=== PATIENT | female | born 1945 | race Caucasian/White ===

== ENCOUNTER 2022-09-26 15:55 | Inpatient (IN) | payer MEDICARE, OTHER, SELFPAY ==
[2022-09-26] VITALS (28 sets, daily range): BP systolic 151–218; BP diastolic 89–150; PULSE 73–116; RESP 15–28; TEMP 35.8–38.3; O2SAT 93–100; BMI 14.2
--- NOTE | ~2022-09-26 | MR_ITS ---
EXAMINATION: MR brain/brain stem wo con DATE: 09/28/2022 09:22 INDICATION: Altered mental status. TECHNIQUE: Magnetic resonance imaging (MRI) of the brain and brainstem was performed without intraven ous contrast. COMPARISON: Head CT 09/26/2022 FINDINGS: There are scattered areas of nonspecific increased T2-weighted signal intensity in the cere bral white matter. There is no intracranial hemorrhage, acute infarction, or abnormal intracranial ma ss lesion. The ventricles are normal in size. The orbits are normal. The paranasal sinuses are clear. The mastoid air cells are normal. IMPRESSION: 1. Moderate nonspecific cerebral white matter disease, which likely represents chronic small vessel i schemic disease. Reviewed, dictated and finalized at location A. IMPRESSION: 1. Moderate nonspecific cerebral white matter disease, which likely represents chronic small vessel ischemic disease.
--- NOTE | ~2022-09-26 | XR_ITS ---
AP view of the pelvis and AP and lateral views of the left hip Clinical history: Pain Findings: Subcapital fracture of the proximal left femoral neck is present, with displacement increas ed varus angulation. Bilateral hip and SI joint spaces are preserved. Soft tissues are unremarkable. Impression: Subcapital fracture of the proximal left femoral neck, as detailed above. Reviewed, dictated and finalized at location . Impression: Subcapital fracture of the proximal left femoral neck, as detailed above.
--- NOTE | ~2022-09-26 | XR_ITS ---
EXAMINATION: XR chest 1V portable Exam Date/Time: 09/30/2022 18:35 CDT HISTORY: pulmonary edema, cough Comparison: . RESULT: Lines, tubes, and devices: Right upper extremity PICC remains in good position. Lungs and pleura: Worsening diffuse reticular opacities and reticulonodular opacities in the left lo wer lung. Severe emphysematous and senescent change. Chronic right lateral pleural blunting. Cardiomediastinal silhouette: Stable. Other: No acute osseous or upper abdominal finding. IMPRESSION: Worsening changes of edema/bronchiolitis in the left lower lung, over a background of more diffuse wo rsening mild interstitial edema. Reviewed, dictated and finalized at location K. IMPRESSION: Worsening changes of edema/bronchiolitis in the left lower lung, over a backgro und of more diffuse worsening mild interstitial edema.
--- NOTE | ~2022-09-26 | XR_ITS ---
EXAMINATION: XR chest 1V portable DATE: 09/29/2022 12:56 INDICATION: Shortness of breath. TECHNIQUE: A single frontal view of the chest was obtained. COMPARISON: Chest single view 09/27/22, CT abdomen and pelvis 09/26/2022 FINDINGS: There are lucencies in the lungs, consistent with emphysema. There is an interstitial patte rn in the lungs, consistent with mild pulmonary edema. There is chronic blunting of right lateral cos tophrenic angle. No pleural effusion or pneumothorax. The heart size is normal. A right upper extremi ty peripherally inserted central venous catheter (PICC) is seen with tip at the superior cavoatrial j unction. IMPRESSION: 1. Mild pulmonary edema. 2. Emphysema. Reviewed, dictated and finalized at location A.
--- NOTE | ~2022-09-26 | XR_ITS ---
EXAMINATION: XR barium swallow modified DATE: 09/29/2022 10:44 INDICATION: Dysphagia TECHNIQUE: Modified barium esophagram was performed by myself who administered fluoroscopy, in conju nction with speech pathologist who administered barium in varying consistencies as per speech patholo gist documentation. This was recorded on tape. A single fluoroscopic spot image was recorded. Fluoros copy exposure time was 1.9 minutes. The DAP for this procedure was 1.157 Gycm2. FINDINGS: Oral stage: Adequate function. Pharyngeal phase: Adequate function. Laryngeal penetration: None. Aspiration: None. Laryngeal sensitivity: Not applicable. IMPRESSION: Normal modified barium swallow. Please refer to speech pathologist findings and specific feeding recommendations. Reviewed, dictated and finalized at location A.
--- NOTE | ~2022-09-26 | XR_ITS ---
EXAMINATION: XR lumbar puncture diagnostic DATE: 09/27/2022 12:42 INDICATION: Altered mental status and fever TECHNIQUE: The procedure including the risks and benefits was discussed with the patient's daughter. Risks discussed included spinal headache, cerebrospinal fluid leak, bleeding, and infection. The blanca ent's daughter understood the risks and agreed to proceed. A timeout was performed to verify the p atient's name, date of , and procedure to be performed. The skin overlying the L4-L5 level was prepped and draped in usual sterile fashion. Subcutaneous 1% lidocaine was used for local anesthesia . A 20 gauge spinal needle was advanced under fluoroscopic guidance. The needle was removed and the entry site was cleaned and dressed. There were no immediate complications. A total of 3 fluoroscopic image(s) were obtained. The amount of fluoroscopy time used during this procedure was 0.2 minutes. T here were no immediate competitions. FINDINGS: Real-time fluoroscopy demonstrates the needle at the L4-L5 level. Opening pressure was 16 c m water. (Normal range is variably defined as 6-20 cm water and up to 25 cm water in obese patients. Pressure >25 cm water is one of the modified Dandy criteria for idiopathic intracranial hypertension) . 13 mL of clear, colorless fluid was collected in 4 tubes. IMPRESSION: 1. Successful fluoro-guided lumbar puncture. Reviewed, dictated and finalized at location A.
--- NOTE | ~2022-09-26 | XR_ITS ---
AP view of the pelvis and AP and lateral views of the bilateral hips Clinical history: Pain Findings: There is a significantly displaced, subcapital fracture of the proximal left femoral neck. No right proximal femoral fracture seen. Remaining visualized pelvic bones appear intact. Soft tissue s are unremarkable. Impression: Displaced subcapital fracture of the proximal left femoral neck. Reviewed, dictated and finalized at location . Impression: Displaced subcapital fracture of the proximal left femoral neck.
--- NOTE | ~2022-09-26 | CT_ITS ---
Noncontrast CT scan of the cervical spine Technique: Multiple contiguous axial [address] images of the cervical spine were obtained and rec onstructed in 2D sagittal and coronal planes on the acquisition scanner. Dose reduction technique was used on this scan by utilizing automated exposure control, adjustment of the mA and/or kV according to patient size. The dose-length product (DLP) was 92.05 mGy-cm. Clinical History: Unresponsive Findings: No fractures or dislocations. There is partial fusion across the C6-C7 disc space. There i s severe degenerative disc narrowing at C4-C5 and C5-C6. There is degenerative change at the articula tion of the odontoid process with the anterior arch of C1. There is bilateral neural foraminal narrow ing at C3-C4, with prominent bilateral facet arthropathy. There is left neural foraminal narrowing at C4-C5, with mild bilateral facet arthropathy. There is left neural foraminal narrowing at C5-C6, wit h facet arthropathy and disc osteophyte complex. No prevertebral soft tissue swelling. Severe emphysema noted at the lung apices. Impression: No fracture or subluxation of the cervical spine. Moderate degenerative spondylosis, as above. Severe emphysema at the lung apices. Reviewed, dictated and finalized at location . Impression: No fracture or subluxation of the cervical spine. Moderate degenerative spondylosis, as above. Severe emphysema at the lung apices.
--- NOTE | ~2022-09-26 | XR_ITS ---
Portable chest x-ray Comparison: 01/20/2007 Clinical History: Unresponsive Findings: Probable COPD pattern of the lungs. Probable mild interstitial pulmonary edema pattern. Pr obable bibasilar nipple shadows. Cardiomediastinal silhouette is stable. Bones and soft tissues are unremarkable. Impression: Mild interstitial pulmonary edema pattern, versus possibly chronic interstitial disease. Suspected underlying COPD. Bibasilar nipple shadows. Reviewed, dictated and finalized at location . Impression: Mild interstitial pulmonary edema pattern, versus possibly chronic interstitial disease. Suspected underlying COPD. Bibasilar nipple shadows.
--- NOTE | ~2022-09-26 | CT_ITS ---
EXAMINATION: CT hip LT wo con DATE: 09/29/2022 12:36 INDICATION: Left hip pain. TECHNIQUE: Computed tomography (CT) of the left hip was performed without intravenous contrast. Autom ated exposure control and iterative reconstruction technique were employed. The dose-length product w as 113.40 mGy-cm. COMPARISON: CT abdomen and pelvis 09/26/2022 FINDINGS: There is a subcapital fracture of left femoral neck. The distal fracture fragment demonstra radha external rotation, 20 degrees varus angulation, and 1.4 cm shortening. There is mild left hip ost eoarthritis. IMPRESSION: 1. Subcapital fracture of left femoral neck. 2. Mild left hip osteoarthritis. Reviewed, dictated and finalized at location A.
--- NOTE | ~2022-09-26 | XR_ITS ---
EXAMINATION: XR hip LT min 2V DATE: 10/02/2022 11:23 INDICATION: Left hip arthroplasty. Postop. TECHNIQUE: 2 views of left hip were obtained. COMPARISON: Left hip radiograph 09/30/2022 FINDINGS: There is a bipolar left hip hemiarthroplasty in near-anatomic alignment. No fracture. There is gas in the soft tissues, consistent with recent surgery. Lateral skin dean are noted. There is a catheter in the bladder. IMPRESSION: 1. Bipolar left hip hemiarthroplasty in near-anatomic alignment. Reviewed, dictated and finalized at location A.
--- NOTE | ~2022-09-26 | CT_ITS ---
EXAMINATION: CT knee LT wo con DATE: 09/29/2022 12:48 INDICATION: Left knee pain post fall TECHNIQUE: Computed tomography (CT) of the left knee was performed without intravenous contrast. Sagi ttal and coronal reconstructions were performed. Automated exposure control and iterative reconstruct ion technique were employed. The dose-length product was 816.14 mGy-cm. COMPARISON: None FINDINGS: Diffuse osteopenia. Alignment is normal. No fracture. Mild joint space narrowing the medial compartme nt which could be underestimated on nonweightbearing imaging. Tiny marginal ossified to the patella c onsistent with at least minimal osteoarthritis. Small simple fluid attenuation left knee joint effusi on. No lipohemarthrosis. Small osteophytes at the insertion of the distal quadriceps tendon which is mildly thickened distally consistent with likely chronic enthesopathy. No evident soft tissue swellin g. IMPRESSION: 1. Small left knee joint effusion and at least mild medial and patellofemoral osteoarthritis. No acut e osseous abnormality. 2. Prominent diffuse osteopenia. Reviewed, dictated and finalized at location L. IMPRESSION: 1. Small left knee joint effusion and at least mild medial and patellofemoral o steoarthritis. No acute osseous abnormality. 2. Prominent diffuse osteopenia.
--- NOTE | ~2022-09-26 | CT_ITS ---
CT head without contrast Indication: Unresponsive Technique: Serial scans were obtained through the brain without the administration of contrast. Dose reduction technique was used on this scan by utilizing automated exposure control and iterative recon struction technique. The dose-length product (DLP) was 605.33 mGy-cm. Findings: There is no evidence of intracranial hemorrhage, mass lesion, or acute infarct. The ventri cles and subarachnoid spaces are unremarkable. Low attenuation regions are seen within the periventr icular white matter bilaterally, likely representing changes from chronic microvascular ischemic dise ase. There is no evidence of edema, mass effect or midline shift. The visualized paranasal sinuses and mastoid air cells are clear. Impression: No intracranial hemorrhage, mass, or acute infarct. Atrophy and mild chronic white matter changes, as above. Reviewed, dictated and finalized at location . Impression: No intracranial hemorrhage, mass, or acute infarct. Atrophy and mild chronic white matter changes, as above.
--- NOTE | ~2022-09-26 | CT_ITS ---
CT of the Abdomen and Pelvis: Indication: Sepsis Technique: 2.5 mm axial scans were obtained through the abdomen and pelvis following intravenous adm inistration of 100 cc of Omnipaque 350. Dose reduction technique was used on this scan by utilizing a utomated exposure control and iterative reconstruction technique. The dose-length product (DLP) was 1 65.99 mGy-cm. Findings: Scans through the lung bases probable moderate emphysema. 8.6 cm left hepatic lobe cyst versus biliary cystadenoma present. The spleen, pancreas, gallbladder, adrenals and kidneys are within normal limits. There are atherosclerotic calcifications of the aorta. No lymphadenopathy. No bowel obstruction or bowel wall thickening. Large amount of stool present at the rectum, with mode rate stool in the remainder of the colon. There is no evidence to suggest acute appendicitis. Images through the pelvis were performed. Ugalde catheter present in the urinary bladder, along with t he urinary bladder air. No distinct adnexal mass identified. No ascites. There are mild compression d eformities of L1 and L2. There is a displaced, subcapital fracture of the proximal left femoral neck. Impression: Subcapital fracture of the proximal left femoral neck with displacement and increased varus angulatio n. Possible fecal impaction/constipation. Moderate probable emphysema. Mild compression deformity of L1 and L2, age indeterminate. Findings reported to Dr. Loera at the time of this reading. Reviewed, dictated and finalized at [facility]. Impression: Subcapital fracture of the proximal left femoral neck with displacement and inc reased varus angulation. Possible fecal impaction/constipation. Moderate probable emphysema. Mild compression deformity of L1 and L2, age indeterminate. Findings reported to Dr. Loera at the time of this reading.
--- NOTE | ~2022-09-26 | XR_ITS ---
EXAMINATION: XR chest 1V portable DATE: 10/06/2022 13:04 INDICATION: Congestive heart failure. TECHNIQUE: A single frontal view of the chest was obtained. COMPARISON: Chest single view 09/30/2022, CT abdomen and pelvis 09/26/2022 FINDINGS: There are lucencies in the lungs, consistent with emphysema. There are reticular opacities in the mid and lower lung zones. There are airspace opacities at the lung bases. There is a small rig ht pleural effusion. No pneumothorax. The heart size is normal. A right upper extremity peripherally inserted central venous catheter (PICC) is seen with tip in the superior vena cava. IMPRESSION: 1. Basilar predominant lung disease with worsening on the left, consistent with atelectasis/scarring versus pneumonia. 2. Small right pleural effusion. 3. Emphysema. Reviewed, dictated and finalized at location A.
--- NOTE | ~2022-09-26 | XR_ITS ---
EXAMINATION: XR chest PICC line DATE: 09/27/2022 13:15 INDICATION: PICC line placement TECHNIQUE: frontal view of the chest was obtained. COMPARISON: Chest radiograph dated 09/26/2022 FINDINGS: Right upper extremity peripherally inserted central venous catheter (PICC) tip at the superior cavoa trial junction. Hyperexpansion of lungs with increased lucency and architectural distortion in the up per lung zones consistent with emphysema. Mild increased interstitial pattern in the lower lung zones which could represent mild pulmonary edema or pneumonia. Nipple shadow projects of the lateral right lung base. No pleural effusion or pneumothorax. Heart size is normal. IMPRESSION: 1. Right PICC line tip at the superior cavoatrial junction. 2. Emphysema with mild increased interstitial pattern in the bilateral lower lung zones which could r epresent pulmonary edema or pneumonia. Reviewed, dictated and finalized at location A. IMPRESSION: 1. Right PICC line tip at the superior cavoatrial junction. 2. Emphysema with mild increased interstitial pattern in the bilateral lower audelia ng zones which could represent pulmonary edema or pneumonia.
--- NOTE | 2022-09-26 16:00 | ED.AMS ---
HPI - Altered Mental Status General Chief Complaint: Altered Mental Status Stated Complaint: AMS Time Seen by Provider: 09/26/22 16:00 Source: family and EMS Mode of arrival: EMS History of Present Illness HPI narrative: 76 years old white female who lives alone, last time was seen by her daughter 6 days ago. Today did not answer text message, daughter went to her house and found her laying down on the floor unresponsive, called 911 then started CPR. Patient had history of COPD and normally on oxygen by nasal cannula. Patient was not on oxygen when she was found on the floor. The daughter is telling me that she found TODAY [employer] next to the patient at home Related Data Allergies Allergy/AdvReac Type Severity Reaction Status Date / Time No Known Allergies Allergy Unknown Verified 01/17/07 16:38 Review of Systems Review of Systems: ROS unobtainable: Yes unobtainable due to medical condition PMFSH Past Medical History Medical History (Updated 09/26/22 @ 19:26 by Wendi Adhikari NP) CHF (congestive heart failure), NYHA class I Chronic respiratory failure with hypoxia and hypercapnia COPD (chronic obstructive pulmonary disease) Hypertension Surgical History Surgical History (Updated 09/26/22 @ 19:26 by Wendi Adhikari NP) H/O hernia repair Family History Family History (Updated 09/26/22 @ 19:28 by Wendi Adhikari NP) Father Cancer Mother Acute myocardial infarction Hypertension Social History Social History (Updated 09/26/22 @ 19:29 by Wendi Adhikari NP) Social History: 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 Musculoskeletal: Unresponsive, does not follow verbal commands Neurologic: Unresponsive Course Vital Signs Vital signs: Vital Signs Temperature 35.8 C L 09/26/22 15:55 Pulse Rate 112 H 09/26/22 15:55 Respiratory Rate 19 09/26/22 15:55 Blood Pressure 191/131 H 09/26/22 15:55 Pulse Oximetry 97 09/26/22 15:55 Oxygen Delivery Nasal Cannula 09/26/22 15:55 Oxygen Flow Rate 2 09/26/22 15:55 Temperature 38.2 C H 09/26/22 20:01 Pulse Rate 74 09/26/22 20:01 Respiratory Rate 26 H 09/26/22 20:01 Blood Pressure 182/93 H 09/26/22 19:47 Pulse Oximetry 97 09/26/22 20:01 Oxygen Delivery Nasal Cannula 09/26/22 15:55 Oxygen Flow Rate 2 09/26/22 15:55 MDM - Altered Mental Status MDM Narrative Medical decision making narrative: Patient found unresponsive at her home today. Last time was seen by her daughter 6 days ago. Patient had today's newspaper. Patient normally on oxygen by nasal cannula, she was not on it when she found unresponsive. Physical examination showed 47.7 kg gram patient, responsive to painful stimulation by moving extremities, unable to flex left knee, differential diagnosis include CVA, cervical neck fracture, sepsis, electrolyte imbalance, dehydration, pneumonia, urinary tract infection, hypoxic encephalopathy Work-up today include CBC, CMP, blood culture, CRP, PT PTT, chest x-ray, EKG, CT scan of the head and cervical spine, CT abdomen and pelvis with IV contrast, ABG, COVID and flu test, rapid strep. Work-up today s
--- NOTE | 2022-09-26 16:02 | ECG_ITS ---
Measurements Intervals [place] Rate: 78 P: 85 NM: 141 QRS: 71 QRSD: 98 T: 113 QT: 412 QTc: 470 Interpretive Statements SINUS RHYTHM POSSIBLE LEFT ATRIAL ENLARGEMENT [-0.1mV P WAVE IN V1/V2] LATERAL T-WAVE CHANGES, cONSIDER LATERAL ISCHEMIA [-0.1+ mV T WAVE IN I/aVL/V5/V6] NONSPECIFIC ST CHANGES. COMPARED TO ECG 09/26/2022 16:11:00 NO SIGNIFICANT CHANGES Electronically Signed On 09-27-2022 8:31:47 CDT by Elizabeth Cheng M.D.
[2022-09-26] MEDS: SODIUM CHLORIDE 0.9% IV 1,000 ML 999 ML IV CONT (16:15)
[2022-09-26 16:24] LABS: Glucose Point of Care 180 mg/dl (65-105)
[2022-09-26 16:26] LABS: Alveolar/Arterial O2 Gradient 42.8 mmHg; Base Excess ABG -1.9 mEq/l (+/-2.0); Fractional Inspired Oxygen 25 %; HCO3 ABG 24.2 mEq/l (22.0-26.0); Oxygen Content ABG 19.1 %vol (16.0-22.0); Oxygen Saturation ABG 95.2 % (95.0-100.0); Oxyhemoglobin 93.4 % THb (90.0-100.0); PCO2 ABG 46.2 mmHg (35.0-45.0); PO2 ABG 80.6 mmHg (80.0-100.0); PO2 FiO2 Ratio Arterial Blood 3.22 %; Total Hemoglobin 14.5 g/dL (12.0-18.0); pH ABG 7.337 (7.350-7.450)
[2022-09-26 16:28] LABS: Device NASAL CANNULA; Modified Allen's Test Pass; Site Drawn RIGHT BRACHIAL
[2022-09-26 16:53] LABS: Hematocrit 41.3 % (37.0-47.0); Hemoglobin 13.5 g/dL (12.0-15.0); Mean Corpuscular HGB Conc 32.7 g/dl (32-36); Mean Corpuscular Hemoglobin 32.5 pg (26-34); Mean Corpuscular Volume 99.5 fl (80-100); Mean Platelet Volume 10.3 fl (7.4-10.4); Platelet Count Result 183 k/mm3 (150-375); Red Blood Count 4.15 M/mm3 (4.2-5.4); Red Cell Distribution Width 13.1 % (11.5-14.5); White Blood Count 20.2 K/mm3 (4.5-10.0)
[2022-09-26 17:06] LABS: Partial Thromboplastin Time 33.3 SECONDS (22.3-36.8)
[2022-09-26 17:15] LABS: Troponin I < 0.012 ng/mL (0.000-0.034)
[2022-09-26 17:21] LABS: Lactic Acid Reflex 6.6 mmol/L (0.7-2.0)
[2022-09-26 17:22] LABS: Band Neutrophils Percent 2 % (0-6); Monocytes Percent Manual 2 % (3-9); Neutrophils Absolute Manual 19.59 K/mm3 (1.7-7.2); Neutrophils Percent Manual 95 % (46-73); Platelet Estimate Adequate (Adequate); Total Cells Counted 100
[2022-09-26 17:23] LABS: Schistocytes None Seen (NORMAL)
[2022-09-26 17:26] LABS: Appearance Urine Clear (Clear); Bacteria Urine None Seen /hpf; Bilirubin Urine Negative (Negative); Blood Urine 2+ (Negative); Color Urine Yellow (Yellow); Glucose Urine UA Trace mg/dL (Negative); Hyaline Casts Urine Present /lpf; Ketones Urine 2+ mg/dL (Negative); Leukocyte Esterase Ur Negative LEU/UL (Negative); Nitrate Urine Negative (Negative); Non Pathogenic Casts >20; Protein Urine 1+ mg/dL (Negative); RBC Urine 0-2 /hpf (0-2); Specific Grav Ur 1.015 (1.001-1.035); Squamous Epithelial Cell Urine None seen /hpf (Few); WBC Urine 0-5 /hpf; pH Urine 5.5 (5.0-9.0)
[2022-09-26 17:27] LABS: Add Urine Microscopic? YES
[2022-09-26 17:28] LABS: Alanine Aminotransferase 49 U/L (6-35); Alkaline Phosphatase 54 U/L (38-126); Anion Gap 12 mmol/L (8-16); Aspartate Amino Transferase 57 U/L (14-36); Bilirubin,Total 1.4 mg/dL (0.2-1.3); Blood Urea Nitrogen 22 mg/dL (7-17); CRP < 0.5 mg/dL (<1.0); Calcium 8.1 mg/dL (8.4-10.2); Carbon Dioxide 22 mmol/L (22-30); Chloride 89 mmol/L (98-107); Estimated CRCL calculation 42 ml/min; Estimated Glomerular Filt Rate > 60; Glucose 149 mg/dL (65-110); Potassium 4.1 mmol/L (3.4-5.0); Sodium 123 mmol/L (137-145)
[2022-09-26 17:28] LABS: Creatine Kinase 371 U/L (30-135)
[2022-09-26] MEDS: levoFLOXacin 750 MG/D5W 150 ML 750 MG/150 ML BAG 100 MG IVPB (17:59)
[2022-09-26] MEDS: LABETALOL HCL INJ 100 MG/20 ML VIAL 10 MG IV PUSH (18:01)
[2022-09-26] MEDS: SODIUM CHLORIDE 3% 500 ML 30 ML IV CONT (18:28)
[2022-09-26] MEDS: LABETALOL HCL INJ 100 MG/20 ML VIAL 20 MG IV PUSH (18:37)
--- NOTE | 2022-09-26 19:13 | PC.NURSE ---
Bedside report given to Delicia DIEZ
--- NOTE | 2022-09-26 19:21 | PM.IMHP ---
H&P: HPI History of Present Illness Date/Time: 09/26/22 19:21 Chief Complaint: Altered mental status Narrative: This is a 76-year-old female patient who lives home alone. The patient only has 1 daughter who checks up on her occasionally. The patient started has not seen her for 6 days. Today the patient did not answer text messages to her daughter went to her house. The patient was found lying down on the floor unresponsive. The patient typically wears oxygen at 2 L per nasal cannula and the daughter stated that the oxygen was at 1 into the house and the patient was at the other and her house. It was felt that the patient fell today and had only been on the floor today because there was a newspaper that was today's newspaper next to the patient. Her white counts 20.2. PH was 7.431, pCO2 was 40.1. PO2 was 76.3. The patient does have a history of COPD and is on oxygen at 2 L typically. It was unclear what medications the patient was on. The daughter collected many different bottles that were scattered throughout the house. I reviewed these medications and some of these medications had not been filled since last year. The patient does go to [facility] pharmacy. Her sodium levels 123 now 122. Her glucose is 149 and now 144. Her lactic was 6.6 now 1.8. Calcium 8.1 now 7.8. Total bilirubin 1.4, AST 57, ALT 49. Total creatinine kinase 371. She had 1+ protein, trace glucose in her urine 2+ ketones and 2+ blood. Influenza a B RSV COVID and group a not detected. Chest x-rayMild interstitial pulmonary edema pattern, versus possibly chronic interstitial disease. Suspected underlying COPD. Bibasilar nipple shadows. Cervical spine CTNo fracture or subluxation of the cervical spine. Moderate degenerative spondylosis, as above. Severe emphysema at the lung apices. Head CT read asNo intracranial hemorrhage, mass, or acute infarct. Atrophy and mild chronic white matter changes, as above. Abdominal pelvis CT was read asSubcapital fracture of the proximal left femoral neck with displacement and increased varus angulation. Possible fecal impaction/constipation. Moderate probable emphysema. Mild compression deformity of L1 and L2, age indeterminate. Findings reported to Dr. Loera at the time of this reading. Hip and pelvis x-ray read as subcapital fracture of the proximal left femoral neck. The patient was given IV fluids, labetalol, vancomycin, Levaquin, Zosyn, labetalol, and Toradol. The patient is being admitted to ICU as inpatient on the date of service of 09/26/2022. Review of Systems Review of Systems: All systems reviewed & are unremarkable except as noted in HPI and below Constitutional: Constitutional: Reports as per HPI and Reports no additional constitutional complaints Eyes: Eyes: Reports as per HPI and Reports no additional eye complaints ENT: Reports system reviewed and no additional complaints, except as documented and Reports Normal hearing present Cardiovascular: Cardiovascular: Reports no additional cardiovascular complaints Respiratory: Respiratory: Reports no additional respiratory complaints and Reports no additional respiratory complaints Gastrointestinal: Gastrointestinal: Reports as per HPI and Reports no additional gastrointestinal complaints Musculoskeletal: Musculoskeletal: Reports no additional musculoskeletal complaints Integumentary/Breasts: Skin/Breast: Reports system reviewed and no additional complaints, except as docu and Reports as per HPI Neurologic: Reports system reviewed and no additional complaints, except as documented, Reports as per HPI and Reports Normal hearing present Psychiatric: Psychiatric: Reports no additional psychiatric complaints and Reports as per HPI Endocrine: Endocrine: Reports no additional endocrine complaints Hematologic/Lymphatic: Hematologic/Lymphatic: Reports no additional hematologic/lymphatic complaints Allergic/Immunologic: Allergic/Immunologic: Reports no additional allergic/immu
[2022-09-26 19:43] LABS: Alveolar/Arterial O2 Gradient 37.6 mmHg; Base Excess ABG 5.9 mEq/l (+/-2.0); Fractional Inspired Oxygen 24 %; HCO3 ABG 31.3 mEq/l (22.0-26.0); Oxygen Content ABG 18.1 %vol (16.0-22.0); Oxygen Saturation ABG 95.5 % (95.0-100.0); Oxyhemoglobin 93.6 % THb (90.0-100.0); PCO2 ABG 48.1 mmHg (35.0-45.0); PO2 ABG 76.3 mmHg (80.0-100.0); PO2 FiO2 Ratio Arterial Blood 3.18 %; Total Hemoglobin 13.7 g/dL (12.0-18.0); pH ABG 7.431 (7.350-7.450)
--- NOTE | 2022-09-26 19:43 | ECG_ITS ---
Measurements Intervals [place] Rate: 98 P: IA: 0 QRS: 89 QRSD: 114 T: -23 QT: 440 QTc: 564 Interpretive Statements SUPRAVENTRICULAR RHYTHM, PROBABLY NORMAL SINUS RHYTHM TOO MUCH ARTIFACT FOR FURTHER EVALUATION. NO PREVIOUS ECG AVAILABLE FOR COMPARISON Electronically Signed On 09-27-2022 8:29:48 CDT by Elizabeth Cheng M.D.
[2022-09-26 19:46] LABS: Device NASAL CANNULA; Modified Allen's Test Pass; Site Drawn LEFT RADIAL
[2022-09-26] MEDS: KETOROLAC 15 MG/ML VIAL (*BKC) IV PUSH (19:52)
[2022-09-26] MEDS: PIPERACILLIN/TAZ 4.5G/NS 100ML 4.5 GM/100 ML BAG IVPB (19:52)
[2022-09-26 20:03] LABS: Reflex Lactic Acid Yes or No Add Lactic
[2022-09-26] MEDS: VANCOMYCIN 1,250 MG/NS 250 ML 1,250 MG/250 ML BAG 166.67 MG IVPB (20:15)
[2022-09-26 20:33] LABS: Strep Group A RT-PCR NOT DETECTED (Negative)
[2022-09-26 20:41] LABS: Influenza A QL RT-PCR Negative (Negative); Influenza B QL RT-PCR Negative (Negative); RSV RNA, RT-PCR Negative (Negative); SARS-CoV-2 RNA PCR Negative (Negative)
[2022-09-26 20:48] LABS: Lactic Acid 1.8 mmol/L (0.7-2.0)
--- NOTE | 2022-09-26 21:16 | PC.NURSE ---
pt. daughter [phone] can call at anytime.
[2022-09-26 21:24] LABS: Anion Gap 3 mmol/L (8-16); Blood Urea Nitrogen 19 mg/dL (7-17); Calcium 7.8 mg/dL (8.4-10.2); Carbon Dioxide 33 mmol/L (22-30); Chloride 86 mmol/L (98-107); Estimated CRCL calculation 49 ml/min; Estimated Glomerular Filt Rate > 60; Glucose 144 mg/dL (65-110); Potassium 3.5 mmol/L (3.4-5.0); Sodium 122 mmol/L (137-145)
--- NOTE | 2022-09-26 21:35 | ADMGEN ---
This patient, Rosalba oMntano, was admitted to Intensive Care Unit-6. Patient/family oriented to hospital policies and general routines including ID bracelet, bed and alarms, visiting hours, pain management, procedures, bathroom and other care routines, personal items, smoking policy, room service/diet, and visiting hours. Information on how to activate the Rapid Response Team has been discussed. Patient/Family are encouraged to report perceived risks to care and to ask questions if they do not understand what they are told or what they should do.
[2022-09-26] MEDS: MORPHINE SULFATE (*CRX) 2 MG/ML INJ IV PUSH (22:07)
[2022-09-26] MEDS: hydrALAZINE HCL 20 MG/ML VIAL 10 MG IV PUSH (22:14)
[2022-09-26] MEDS: SODIUM CHLORIDE 0.9% IV 1,000 ML 125 ML IV CONT (22:18)
[2022-09-26 23:19] LABS: Anion Gap 4 mmol/L (8-16); Blood Urea Nitrogen 18 mg/dL (7-17); Calcium 7.7 mg/dL (8.4-10.2); Carbon Dioxide 31 mmol/L (22-30); Chloride 87 mmol/L (98-107); Estimated CRCL calculation 35 ml/min; Estimated Glomerular Filt Rate > 60; Glucose 119 mg/dL (65-110); Potassium 3.4 mmol/L (3.4-5.0); Sodium 122 mmol/L (137-145)
[2022-09-26] MEDS: KCL 20 MEQ/SW 100 ML 100 ML 50 MEQ IVPB (23:57)
[2022-09-27] VITALS (35 sets, daily range): BP systolic 100–207; BP diastolic 65–175; PULSE 73–112; RESP 13–22; TEMP 36.2–37.2; O2SAT 92–100
[2022-09-27 00:15] LABS: Glucose Point of Care 124 mg/dl (65-105)
[2022-09-27 00:30] LABS: Potassium Urine Random 70.2 meq/L; Sodium Urine Random 130 meq/L
[2022-09-27 02:48] LABS: Anion Gap 4 mmol/L (8-16); Blood Urea Nitrogen 21 mg/dL (7-17); Calcium 7.8 mg/dL (8.4-10.2); Carbon Dioxide 28 mmol/L (22-30); Chloride 89 mmol/L (98-107); Estimated CRCL calculation 35 ml/min; Estimated Glomerular Filt Rate > 60; Glucose 102 mg/dL (65-110); Potassium 3.9 mmol/L (3.4-5.0); Sodium 121 mmol/L (137-145)
[2022-09-27] MEDS: IPRATROPIUM BR 0.02% INH SOLN 0.5 MG/2.5 ML VIAL INHALATION ×4 (02:56→20:17)
[2022-09-27] MEDS: LEVALBUTEROL NEB 1.25 MG/3 ML INHALATION ×4 (02:56→20:17)
[2022-09-27] MEDS: PIPERACILLIN/TAZ 4.5G/NS 100ML 4.5 GM/100 ML BAG IVPB (03:51)
[2022-09-27 06:13] LABS: Glucose Point of Care 114 mg/dl (65-105)
[2022-09-27 07:13] LABS: Basophils Percent Auto 0.2 % (0.2-1.2); Hematocrit 37.5 % (37.0-47.0); Hemoglobin 12.6 g/dL (12.0-15.0); Immature Granulocyte Absolute 0.08 K/mm3 (0.00-0.031); Immature Granulocyte Percent A 0.6 % (0-0.5); Immature Platelet Fraction Pct 5.3 % (0.9-11.2); Lymphocytes Absolute Auto 0.43 K/mm3 (0.9-3.2); Lymphocytes Percent Auto 3.5 % (18.3-44.2); Mean Corpuscular HGB Conc 33.6 g/dl (32-36); Mean Corpuscular Hemoglobin 32.3 pg (26-34); Mean Corpuscular Volume 96.2 fl (80-100); Mean Platelet Volume 10.1 fl (7.4-10.4); Monocytes Absolute Auto 0.8 K/mm3 (0.1-0.6); Monocytes Percent Auto 6.7 % (2.6-8.5); Neutrophils Absolute Auto 11.1 K/mm3 (1.3-6.7); Platelet Count Result 142 k/mm3 (150-375); Red Cell Distribution Width 13.2 % (11.5-14.5); White Blood Count 12.5 K/mm3 (4.5-10.0)
[2022-09-27 07:17] LABS: Alanine Aminotransferase 31 U/L (6-35); Albumin Level 3.3 g/dL (3.5-5.1); Alkaline Phosphatase 50 U/L (38-126); Anion Gap 4 mmol/L (8-16); Aspartate Amino Transferase 50 U/L (14-36); Bilirubin,Total 1.3 mg/dL (0.2-1.3); Blood Urea Nitrogen 21 mg/dL (7-17); Calcium 7.8 mg/dL (8.4-10.2); Carbon Dioxide 28 mmol/L (22-30); Chloride 94 mmol/L (98-107); Creatine Kinase 889 U/L (30-135); Estimated CRCL calculation 35 ml/min; Estimated Glomerular Filt Rate > 60; Glucose 99 mg/dL (65-110); Potassium 3.8 mmol/L (3.4-5.0); Sodium 126 mmol/L (137-145)
--- NOTE | 2022-09-27 08:21 | WPDCNINT ---
Assessment and Plan Assessment and plan (1) Sepsis: Qualifiers: Sepsis acute organ dysfunction status: unspecified Sepsis type: sepsis due to unspecified organism Qualified Code(s): A41.9 - Sepsis, unspecified organism Code(s): A41.9 - Sepsis, unspecified organism Status: Acute Assessment and Plan: Patient presented with elevated lactic acid level and WBC and met criteria for sepsis No objective evidence of particular source of infection at this time Chest x-ray CT scan and UA are unremarkable With altered mental status, unclear history and fever I will try to rule out meningitis and encephalitis Will request IR for imaging guided LP. Patient may need a small dose of benzodiazepine as she is fairly uncooperative and agitated Will change antibiotics to vancomycin Rocephin and ampicillin. Will add empiric acyclovir at this time (2) Hyponatremia: Code(s): E87.1 - Hypo-osmolality and hyponatremia Status: Acute Assessment and Plan: Patient presented with sodium of 123 initially received IV fluid boluses part of sepsis. Sodium further decreased to 121 and patient was given 3% saline. Repeat sodium was 126. 3% saline has been on hold. Patient is finishing her banana bag that was ordered on admission. I will recheck a BMP and then decide on further fluids. Will target slow improvement to prevent further complication This could be secondary to alcohol, dehydration or SIADH Consult nephrology (3) Encephalopathy: Code(s): G93.40 - Encephalopathy, unspecified Status: Acute Assessment and Plan: No obvious clear etiology at this time. Patient was found unresponsive on the floor. Her mental status has improved but she still is confused. This could be secondary to alcohol, or patient may have had a seizure from hyponatremia. Hypertensive encephalopathy Head CT was negative Check ammonia TSH Check MRI to rule out CVA Thiamine folic acid Consult neurology Consult IR for LP and empiric treatment for meningitis encephalitis (4) Subcapital fracture of femur: Code(s): S72.019A - Unspecified intracapsular fracture of unspecified femur, initial encounter for closed fracture Status: Acute Assessment and Plan: Subcapital fracture of the proximal left femoral neck Pain control and DVT prophylaxis Orthopedics consulted (5) COPD (chronic obstructive pulmonary disease): Code(s): J44.9 - Chronic obstructive pulmonary disease, unspecified Status: Acute Assessment and Plan: COPD by history and imaging Not in exacerbation Continue bronchodilators (6) Rhabdomyolysis: Code(s): M62.82 - Rhabdomyolysis Status: Acute Assessment and Plan: Likely from laying on the floor Continue IV fluids depending on the sodium levels (7) Hypertension: Code(s): I10 - Essential (primary) hypertension Status: Acute Assessment and Plan: Continue p.r.n. IV antihypertensive at this time Plan DVT prophylaxis -Lovenox Nutrition -NPO Code Status -patient is DNR DNI as per patient's daughter Total Critical Care Time - 35 minutes Due to a high probability of clinically significant, life threatening deterioration, the patient required my highest level of preparedness to intervene emergently and I personally spent this critical care time directly and personally managing the patient. This critical care time included obtaining a history; examining the patient; pulse oximetry; ordering and review of studies; arranging urgent treatment with development of a management plan; evaluation of patient's response to treatment; frequent reassessment; and discussions with other providers. It was exclusive of separately billable procedures and treating other patients and teaching time. Please see Assessment and Plan section and the rest of the note for further information on patient assessment and treatment Auction Block Clerk Consult Note Consult date
[2022-09-27 08:36] LABS: Procalcitonin 0.2 ng/mL
[2022-09-27] MEDS: FOLIC ACID 1 MG/0.2 ML INJ IV PUSH (09:13)
[2022-09-27] MEDS: THIAMINE HCL 200 MG/2 ML VIAL 100 MG IV PUSH (09:13)
[2022-09-27] MEDS: cefTRIAXone 2 GM/NS 100 ML 2 GM/100 ML BAG IVPB (09:13)
[2022-09-27] MEDS: AMPICILLIN 1 GM/NS 50 ML 1 GM/50 ML BAG IVPB ×4 (09:53→21:50)
[2022-09-27 11:06] LABS: Ammonia < 9 umol/L (9-30)
[2022-09-27 11:07] LABS: Anion Gap 4 mmol/L (8-16); Blood Urea Nitrogen 19 mg/dL (7-17); Carbon Dioxide 28 mmol/L (22-30); Chloride 93 mmol/L (98-107); Estimated CRCL calculation 35 ml/min; Estimated Glomerular Filt Rate > 60; Glucose 88 mg/dL (65-110); Potassium 3.6 mmol/L (3.4-5.0); Sodium 125 mmol/L (137-145)
--- NOTE | 2022-09-27 11:20 | WPDNEURCNPN ---
Assessment and Plan Assessment and plan (1) Encephalopathy: Code(s): G93.40 - Encephalopathy, unspecified Status: Acute (2) Sepsis: Qualifiers: Sepsis acute organ dysfunction status: unspecified Sepsis type: sepsis due to unspecified organism Qualified Code(s): A41.9 - Sepsis, unspecified organism Code(s): A41.9 - Sepsis, unspecified organism Status: Acute (3) Hyponatremia: Code(s): E87.1 - Hypo-osmolality and hyponatremia Status: Acute (4) Chronic respiratory failure with hypoxia and hypercapnia: Code(s): J96.11 - Chronic respiratory failure with hypoxia; J96.12 - Chronic respiratory failure with hypercapnia Status: Acute (5) Subcapital fracture of femur: Code(s): S72.019A - Unspecified intracapsular fracture of unspecified femur, initial encounter for closed fracture Status: Acute Plan Ms. Montano is a 76 year old female with a history of CHF, COPD, HTN presenting after being found unresponsive in the setting of fever, leukocytosis, lactic acidosis, hyponatremia. Differential is broad at this point, etiology is most suspicious for infectious etiology, but also includes hypertensive encephalopathy, metabolic derangement and hypoxic brain injury. Source of infection is still unclear. She has appropriately been started on meningitic/encephalitic treatment empirically. - Agree with LP for evaluation of SWITCHER infection - MRI brain with and without contrast Consult date: 09/27/22 HPI: Rosalba Montano is a 76 year old female with a history of COPD, CHF, HTN who was found unresponsive. Patient was last noted to be her normal self about 6 days prior to presentation. Daughter attempted to call her yesterday, but did not get any response. She went to physically check on her and found her down, unresponsive. She did not that that day's newspaper was in the house. Daughter started called EMS. She was taken to [place] ED where she was protecting her airway. Her blood pressure was elevated in the 180s-190s systolic. CT head did not show any acute findings. Labs were significant for leukocytosis (20.2), hyponatremia (123) and lactic acidosis. She was febrile with temperature of 38.3. UA did not appear concerning for infection. She was also found to have left femoral fracture. She was started on IV antibiotics (currently on vancomycin, Rocephin, ampicillin for meningitic coverage), and acyclovir. She was admitted to the ICU. Ammonia, TSH are normal. She has also been started on thiamine. Blood cultures have been obtained but are still pending. Review of Systems Review of Systems: ROS unobtainable: Yes unobtainable due to medical condition and unobtainable due to mental status PMFSH Past Medical History Medical History CHF (congestive heart failure), NYHA class I Chronic respiratory failure with hypoxia and hypercapnia COPD (chronic obstructive pulmonary disease) Hypertension Surgical History Surgical History H/O hernia repair Family History Family History Father Cancer Mother Acute myocardial infarction Hypertension Social History Social History Social History: she lives alone and only has one child(daughter) and she is . 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 She was a smoker and quit 15 years ago. code status dnr Smoking status: Former smoker Alcohol intake: current Drinks per week: 14 Substance use: unknown Spiritual care concerns: No Meds Home Medications and Allergies Home Medications Medication Instructions Recorded Confirmed Type albuterol sulfate 90 mcg/actuation 2 puff inhalation QID PRN 09/26/22 09/26/22 History aerosol inhaler Shortness Of Breath Or Wheezing amlodipine 5 mg tablet 5 mg PO DAILY 09/26/22 09/26/22 Histo
[2022-09-27] MEDS: LORazepam INJ (*CRX) 2 MG/ML VIAL IV PUSH (12:00)
--- NOTE | 2022-09-27 12:31 | PM.CNNEP ---
Assessment and Plan Assessment and plan (1) Hyponatremia: Code(s): E87.1 - Hypo-osmolality and hyponatremia Status: Acute Assessment and Plan: The patient has low sodium. There are no records before this hospital stay except for some values in 2006 which showed sodium consistently below normal but above 130. So it seems like there might be a chronic component to the hyponatremia. I did ask the daughter who said that she had not heard anything about hyponatremia in the recent past. Causes of low sodium include: Hormonal issues, and we will check this; FLOOR HAND issues, she had a CT scan of the head already Pulmonary issues, chest x-ray is okay. Active cancer. The daughter says that she does not have that history. The patient needs to be sure that she is up-to-date with cancer screening. The patient was not on any medicines that would cause low sodium except for furosemide and that was at a low dose and only once a day so was unlikely to be the cause. Will order hormones, osmolality, SPEP, and see how the sodium is later today. This sodium was 121 when she came in. Most likely this is a chronic issue. No documentation that the sodium was normal 24hours before admission so I think we need to treated as chronic. The patient was given 3% saline yesterday and the sodium is up to 125 now. The goal would be to elevate the sodium but not more than above 127-128 (the upper limit to prevent central pontine myelinolysis). The patient is NPO now and so is on fluid restriction, however is on multiple IV which do have some free water in them. Will check another sodium later today. If the level starts dropping we can take other measures chair let the sodium rise again. (2) Unresponsive: Code(s): R41.89 - Other symptoms and signs involving cognitive functions and awareness Status: Acute Assessment and Plan: If this was due to the hyponatremia, it should be improved by now since the sodium is up to 125. The patient had CPR at the scene, so hypoxia from whatever caused her heart ailment may be part of the issue. Evaluation is underway (3) Sepsis: Qualifiers: Sepsis acute organ dysfunction status: unspecified Sepsis type: sepsis due to unspecified organism Qualified Code(s): A41.9 - Sepsis, unspecified organism Code(s): A41.9 - Sepsis, unspecified organism Status: Acute Assessment and Plan: Patient had cultures done and is on broad-spectrum antibiotics (4) Closed left hip fracture: Qualifiers: Encounter type: subsequent encounter Fracture healing: with routine healing Qualified Code(s): S72.002D - Fracture of unspecified part of neck of left femur, subsequent encounter for closed fracture with routine healing Code(s): S72.002A - Fracture of unspecified part of neck of left femur, initial encounter for closed fracture Status: Acute Assessment and Plan: Discussed with Dr Smith (5) Hypertension: Code(s): I10 - Essential (primary) hypertension Status: Acute Assessment and Plan: Blood pressure is very high. The patient is getting hydralazine, labetalol,. Will put a clonidine patch on to give more scheduled medication. (6) CHF (congestive heart failure), NYHA class I: Code(s): I50.9 - Heart failure, unspecified Status: Acute Assessment and Plan: Chest x-ray is okay. This seems compensated. (7) COPD (chronic obstructive pulmonary disease): Code(s): J44.9 - Chronic obstructive pulmonary disease, unspecified Status: Acute Assessment and Plan: Breathing comfortably without oxygen (8) Rhabdomyolysis: Code(s): M62.82 - Rhabdomyolysis Status: Acute Assessment and Plan: CPK is mildly high. Will repeat this tomorrow History of Present Illness Reason for Consult Consult date: 09/27/22 Chief Complaint Chief complaint: Sepsis,Hyponatremia,Left Hip Fx,Unresponsive Hi
[2022-09-27 13:00] LABS: Glucose CSF 69 mg/dL (40-70); Total Protein CSF 49 mg/dL (12-60)
[2022-09-27 13:02] LABS: CSF source CSF; Nucleated Cell CSF 2 /uL (0-5)
[2022-09-27 13:03] LABS: Red Blood Cell CSF 1 (0-2)
[2022-09-27 13:21] LABS: Appearance CSF Clear (Clear); Color CSF Colorless (Colorless); Lymphocytes CSF 11 % (40-80); Monocytes CSF 11 % (15-45); Neutrophils CSF 78 % (0-6)
[2022-09-27] MEDS: KCL 20 MEQ/SW 100 ML 100 ML 50 MEQ IVPB (14:57)
[2022-09-27] MEDS: KCL 20 MEQ/0.45% NS 1,000 ML 50 ML IV CONT (14:57)
[2022-09-27] MEDS: CENTRAL LINE FLUSH 10 ML IV PUSH ×2 (15:01→21:51)
[2022-09-27 15:06] LABS: Total Protein Urine Random 47 mg/dL; Ur Ttl Prot Creatinine Ratio 0.51 mg/mg (0-0.20); Urea Random Urine 788 MG/DL
[2022-09-27 15:08] LABS: Anion Gap 1 mmol/L (8-16); Blood Urea Nitrogen 19 mg/dL (7-17); Calcium 7.8 mg/dL (8.4-10.2); Carbon Dioxide 32 mmol/L (22-30); Chloride 91 mmol/L (98-107); Estimated CRCL calculation 35 ml/min; Estimated Glomerular Filt Rate > 60; Glucose 86 mg/dL (65-110); Potassium 3.4 mmol/L (3.4-5.0); Sodium 124 mmol/L (137-145)
[2022-09-27 15:11] LABS: Appearance Urine Cloudy (Clear); Bacteria Urine None Seen /hpf; Bilirubin Urine Negative (Negative); Blood Urine 1+ (Negative); Color Urine Yellow (Yellow); Glucose Urine UA Negative (Negative); Ketones Urine Trace mg/dL (Negative); Leukocyte Esterase Ur Negative LEU/UL (NEGATIVE); Need Manual Microscopic Reviewed; Nitrate Urine Negative (Negative); Protein Urine 1+ mg/dL (Negative); Sodium Urine Random 98 meq/L; Specific Grav Ur 1.038 (1.001-1.035); Squamous Epithelial Cell Urine Occasional /hpf (Few); WBC Urine 21-50 /hpf (0-3); pH Urine 5.5 (5.0-9.0)
[2022-09-27 15:19] LABS: Add Urine Microscopic? YES
[2022-09-27 18:45] LABS: Anion Gap 3 mmol/L (8-16); Blood Urea Nitrogen 18 mg/dL (7-17); Calcium 7.4 mg/dL (8.4-10.2); Carbon Dioxide 29 mmol/L (22-30); Chloride 92 mmol/L (98-107); Estimated CRCL calculation 41 ml/min; Estimated Glomerular Filt Rate > 60; Glucose 78 mg/dL (65-110); Potassium 4.6 mmol/L (3.4-5.0); Sodium 124 mmol/L (137-145)
[2022-09-27] MEDS: VANCOMYCIN 750 MG/NS 250 ML 750 MG/250 ML BAG 250 MG IVPB (21:49)
[2022-09-27] MEDS: hydrALAZINE HCL 20 MG/ML VIAL 10 MG IV PUSH (22:21)
[2022-09-27 22:35] LABS: Anion Gap 4 mmol/L (8-16); Blood Urea Nitrogen 18 mg/dL (7-17); Calcium 7.9 mg/dL (8.4-10.2); Carbon Dioxide 26 mmol/L (22-30); Chloride 92 mmol/L (98-107); Estimated CRCL calculation 50 ml/min; Estimated Glomerular Filt Rate > 60; Glucose 93 mg/dL (65-110); Magnesium 1.9 mg/dL (1.6-2.3); Potassium 3.8 mmol/L (3.4-5.0); Sodium 122 mmol/L (137-145)
[2022-09-27] MEDS: FUROSEMIDE INJ 40 MG/4 ML VIAL 20 MG IV PUSH (23:16)
[2022-09-28] VITALS (24 sets, daily range): BP systolic 113–177; BP diastolic 67–107; PULSE 78–125; RESP 16–25; TEMP 36.2–36.8; O2SAT 95–100; BMI 14.1
--- NOTE | 2022-09-28 | ECHO_ITS ---
Patient Info Name: Rosalba Montano Age: 76 years : 1945 Gender: Female Ht: 60 in Wt: 72 lbs BSA: 1.16 m2 HR: 85 bpm BP: 142 / 67 mmHg Heart Rhythm: Sinus Rhythm Technical Quality: Fair Exam Date: 09/28/2022 7:54 AM Exam Location: [facility] Pulmonary Patient Status: Inpatient Admit Date: 09/26/2022 Staff Ordering Physician: Wendi Adhikari NP Fuel Cell Technician: Yue Garcia RDCS Attending Provider: Vicente Brooks MD Referring Physician: Zeynep PAIGE; Exam Type: CA echo doppler color flow Study Info Indications - CHF Complete two-dimensional, color flow and Doppler transthoracic echocardiogram is performed. Summary 1. Complete two-dimensional, color flow and Doppler transthoracic echocardiogram is performed. 2. Left ventricular chamber dimension is normal. 3. Left ventricular systolic function is normal, estimated at 65-70%. 4. There is moderately increased left ventricular wall thickness. 5. The left ventricular diastolic function is grade I diastolic dysfunction. 6. Left atrial chamber dimension is mildly enlarged. 7. The mitral valve annulus is mildly calcified. 8. The mitral valve has thickened leaflets. 9. There is mild to moderate tricuspid valve regurgitation. 10. Severe pulmonary hypertension, estimated pulmonary arterial systolic pressure is 77 mmHg. 11. Large cystic structure seen within the liver. Dedicated imaging is recommended if not already performed. Left Ventricle Left ventricular chamber dimension is normal. Left ventricular systolic function is normal, estimated at 65-70%. There is moderately increased left ventricular wall thickness. The left ventricular diastolic function is grade I diastolic dysfunction. Right Ventricle Right ventricular chamber dimension is normal. Right ventricular systolic function is normal. Left Atria Left atrial chamber dimension is mildly enlarged. Right Atria Right atrial chamber dimension is normal. Atrial Septum Intact interatrial septum visualized by color flow imaging. Aortic Valve The aortic valve is trileaflet. There is mild aortic valve sclerosis. There is no aortic valve stenosis. There is trace aortic valve regurgitation. Pulmonic Valve The pulmonic valve is normal. There is no pulmonic valve stenosis. There is trace pulmonic regurgitation. Mitral Valve The mitral valve has thickened leaflets. There is no mitral valve stenosis. There is trace mitral valve regurgitation. The mitral valve annulus is mildly calcified. Tricuspid Valve The tricuspid valve leaflets are normal. There is no significant tricuspid valve stenosis. There is mild to moderate tricuspid valve regurgitation. Severe pulmonary hypertension, estimated pulmonary arterial systolic pressure is 77 mmHg. Other Findings Large cystic structure seen within the liver. Dedicated imaging is recommended if not already performed. Pericardium/Pleural The pericardium appears normal. There is trivial pericardial effusion. Inferior Vena Cava Normal inferior vena cava with >50% collapse upon inspiration consistent with normal right atrial pressure, 10 mmHg. Aorta The aortic root size at the sinus of Valsalva is normal. There is moderate aortic atherosclerosis. Left Ventricular Outflow Tract Name Value Normal LVOT 2D LVOT Diameter
[2022-09-28 01:22] LABS: Glucose Point of Care 110 mg/dl (65-105)
[2022-09-28] MEDS: IPRATROPIUM BR 0.02% INH SOLN 0.5 MG/2.5 ML VIAL INHALATION ×3 (01:30→13:48)
[2022-09-28] MEDS: LEVALBUTEROL NEB 1.25 MG/3 ML INHALATION ×4 (01:30→18:03)
[2022-09-28] MEDS: AMPICILLIN 1 GM/NS 50 ML 1 GM/50 ML BAG IVPB ×2 (03:00→06:00)
[2022-09-28] MEDS: FUROSEMIDE INJ 40 MG/4 ML VIAL 20 MG IV PUSH ×3 (06:07→22:17)
[2022-09-28] MEDS: CENTRAL LINE FLUSH 10 ML IV PUSH ×3 (06:07→21:26)
[2022-09-28 06:32] LABS: Hematocrit 39.8 % (37.0-47.0); Hemoglobin 13.6 g/dL (12.0-15.0); Immature Platelet Fraction Pct 6.2 % (0.9-11.2); Mean Corpuscular HGB Conc 34.2 g/dl (32-36); Mean Corpuscular Hemoglobin 32.8 pg (26-34); Mean Corpuscular Volume 95.9 fl (80-100); Mean Platelet Volume 10.3 fl (7.4-10.4); Platelet Count Result 151 k/mm3 (150-375); Red Blood Count 4.15 M/mm3 (4.2-5.4); Red Cell Distribution Width 13.6 % (11.5-14.5); White Blood Count 13.7 K/mm3 (4.5-10.0)
[2022-09-28 06:38] LABS: Glucose Point of Care 104 mg/dl (65-105)
[2022-09-28 06:43] LABS: Alanine Aminotransferase 33 U/L (6-35); Albumin Level 3.4 g/dL (3.5-5.1); Alkaline Phosphatase 55 U/L (38-126); Anion Gap 4 mmol/L (8-16); Aspartate Amino Transferase 72 U/L (14-36); Bilirubin,Total 0.9 mg/dL (0.2-1.3); Blood Urea Nitrogen 16 mg/dL (7-17); Calcium 8.1 mg/dL (8.4-10.2); Carbon Dioxide 31 mmol/L (22-30); Chloride 87 mmol/L (98-107); Creatine Kinase 1086 U/L (30-135); Estimated CRCL calculation 41 ml/min; Estimated Glomerular Filt Rate > 60; Glucose 86 mg/dL (65-110); Magnesium 1.7 mg/dL (1.6-2.3); Phosphorus 3.4 mg/dL (2.5-4.5); Potassium 3.2 mmol/L (3.4-5.0); Sodium 122 mmol/L (137-145)
--- NOTE | 2022-09-28 08:22 | WPDINTPN ---
Progress Note: A&P Assessment and Plan (1) Sepsis: Qualifiers: Sepsis acute organ dysfunction status: unspecified Sepsis type: sepsis due to unspecified organism Qualified Code(s): A41.9 - Sepsis, unspecified organism Code(s): A41.9 - Sepsis, unspecified organism Status: Acute Assessment and Plan: Patient presented with elevated lactic acid level and WBC and met criteria for sepsis No objective evidence of particular source of infection at this time Chest x-ray CT scan and UA are unremarkable With altered mental status, unclear history and fever patient was started on empiric treatment for meningitis and encephalitis and LB was performed. Her procalcitonin level came back low Initial CSF studies all appear clear and do not suggest infection. Will discontinue vancomycin and ampicillin. Continue Rocephin until cultures are finalized. Continue acyclovir is HCV PCR is still pending although appears unlikely. (2) Hyponatremia: Code(s): E87.1 - Hypo-osmolality and hyponatremia Status: Acute Assessment and Plan: Patient presented with sodium of 123 initially received IV fluid boluses part of sepsis. Sodium further decreased to 121 and patient was given 3% saline. Repeat sodium was 126. 3% saline has been on hold. Patient also received a banana bag. This could be secondary to alcohol, dehydration or SIADH Case was discussed with nephrology and patient was started on half-normal saline and serial BMPs were performed Will defer workup and management to Nephrology at this time. Requested nurse to page Dr. Jacome for further guidance on IV fluids (3) Encephalopathy: Code(s): G93.40 - Encephalopathy, unspecified Status: Acute Assessment and Plan: No obvious clear etiology at this time. Patient was found unresponsive on the floor. Her mental status partially improved yesterday but she still was confused. This could be secondary to alcohol, or patient may have had a seizure from hyponatremia. Hypertensive encephalopathy Head CT was negative Normal ammonia TSH MRI to rule out CVA is lei Continue thiamine folic acid Patient was evaluated by a Nephrology 09/27 LP was performed by IR but initial studies do not suggest meningitis encephalitis (4) Subcapital fracture of femur: Code(s): S72.019A - Unspecified intracapsular fracture of unspecified femur, initial encounter for closed fracture Status: Acute Assessment and Plan: Subcapital fracture of the proximal left femoral neck Pain control and DVT prophylaxis Orthopedics following (5) COPD (chronic obstructive pulmonary disease): Code(s): J44.9 - Chronic obstructive pulmonary disease, unspecified Status: Acute Assessment and Plan: COPD by history and imaging Not in exacerbation Continue bronchodilators (6) Rhabdomyolysis: Code(s): M62.82 - Rhabdomyolysis Status: Acute Assessment and Plan: Likely from laying on the floor Continue IV fluids per Nephrology (7) Hypertension: Code(s): I10 - Essential (primary) hypertension Status: Acute Assessment and Plan: Continue p.r.n. IV antihypertensive at this time (8) Hypokalemia: Code(s): E87.6 - Hypokalemia Status: Acute Assessment and Plan: Replacement ordered (9) Constipation: Code(s): K59.00 - Constipation, unspecified Status: Acute Assessment and Plan: Schedule Colace and MiraLax P.r.n. Dulcolax Plan DVT prophylaxis -Lovenox Nutrition -start clear liquid diet a and advance as tolerated Code Status -patient is DNR DNI as per patient's daughter Transfer out ICU today Subjective Date/time seen: 09/28/22 Overnight events reviewed. Afebrile On room air, good urine output, Other vitals acceptable Patient much more awake today. She is able to answer questions and is not drowsy. She denies any pain shortness of breath and does not know why she the hospit
[2022-09-28] MEDS: LORazepam INJ (*CRX) 2 MG/ML VIAL 1 MG IV PUSH (08:44)
[2022-09-28] MEDS: KCL 40 MEQ/WATER 100 ML 100 ML 25 ML IVPB (09:36)
[2022-09-28] MEDS: polyethylene glycoL 3350 17 GM POWD.PACK PO (10:15)
--- NOTE | 2022-09-28 10:15 | PM.PNNEP ---
Progress Note: A&P Assessment and Plan (1) Hyponatremia: Code(s): E87.1 - Hypo-osmolality and hyponatremia Status: Acute Assessment and Plan: review of labs suggest acute on chronic evaluation to date: urine electrolytes prerenal SPEP/UPEP and serum/urine osmo pending TSH and cortisol okay CT of head negative CXR results noted (known COPD) no culprit medications s/p 3% saline on admission not opposed to normal saline IVFs now follow trend of repeat sodiums (2) Closed left hip fracture: Qualifiers: Encounter type: subsequent encounter Fracture healing: with routine healing Qualified Code(s): S72.002D - Fracture of unspecified part of neck of left femur, subsequent encounter for closed fracture with routine healing Code(s): S72.002A - Fracture of unspecified part of neck of left femur, initial encounter for closed fracture Status: Acute Assessment and Plan: as noted by admission imaging Orthopedics following (3) Hypertension: Code(s): I10 - Essential (primary) hypertension Status: Chronic Assessment and Plan: better controlled at this time continue current medications follow trend of hemodynamics (4) Rhabdomyolysis: Code(s): M62.82 - Rhabdomyolysis Status: Acute Assessment and Plan: follow trend of CPK on gentle IVFs Will continue to follow. Subjective Date/time seen: 09/28/22 10:15 Interval history: Follow-up for acute hyponatremia. Chart reviewed -- assuming care from Dr. Jacome; mental status appears to have improved significantly in comparison to admission; remains hemodynamically stable; sodium levels have fluctuated but appear relatively stable; CSF fluid results from LP noted from yesterday as well as MRI done earlier this AM. Exam Narrative: General: frail cachectic female in NAD Heart: tachycardic at times; normal S1 and S2; no rub Lungs: decreased at bases Abdomen: soft, nontender, nondistended, positive bowel sounds Extremities: no cyanosis or clubbing; trace edema Skin: warm and dry Objective Data Vital Signs Vital Signs: Vital Signs Temp Pulse Resp BP Pulse Ox O2 Del Method O2 Flow Rate 09/28/22 10:00 107 H 09/28/22 08:00 95 09/28/22 08:00 99 Nasal Cannula 1 09/28/22 10:00 97.5 F L 107 H 23 H 146/104 H 99 09/28/22 08:00 97.8 F 89 21 H 133/83 99 09/28/22 08:44 118 H 18 09/28/22 08:31 102 H 16 09/28/22 08:31 97 Nasal Cannula 1 09/28/22 06:02 97.8 F 108 H 20 118/97 H 98 09/28/22 06:00 94 09/28/22 04:00 86 09/28/22 02:05 92 18 09/27/22 20:40 90 18 09/28/22 04:01 98.0 F 85 25 H 142/67 H 98 09/28/22 04:00 95 Nasal Cannula 1 09/28/22 02:00 96 09/28/22 02:00 91 20 127/92 H 99 09/28/22 00:00 112 H 09/27/22 22:00 112 H 09/27/22 20:00 112 H 09/28/22 00:00 97.2 F L 99 21 H 113/74 100 09/28/22 00:00 100 Nasal Cannula 2 09/28/22 01:42 91 18 09/27/22 22:00 97.7 F 112 H 22 H 207/175 H 100 09/27/22 20:00 97.1 F L 89 21 H 170/90 H 95 09/27/22 20:00 95 Nasal Cannula 2 09/27/22 20:20 89 16 97 Nasal Cannula 2 09/27/22 20:19 96 16 09/27/22 18:00 97.8 F 80 20 141/88 H 97 09/27/22 18:00 80 09/27/22 16:00 88 09/27/22 16:00 95 Nasal Cannula 1 09/27/22 16:00 98.1 F 88 18 100/65 92 09/27/22 14:39 97.8 F 83 17 98 09/27/22 14:16 97.9 F 80 15 98 09/27/22 13:04 98.2 F 76 19 100 09/27/22 12:08 97.8 F 109 H 16 09/27/22 14:00 142/78 H 09/27/22 14:00 77 09/27/22 13:55 84 18 09/27/22 13:45 83 18 09/27/22 12:00 92 08/06/23 12:00 95 Nasal Cannula 1 09/27/22 12:00 97.7 F 85 16 146/90 H 98 09/27/22 12:45 94 17 183/84 H 97 Inta
[2022-09-28] MEDS: POTASSIUM CHLORIDE 20 MEQ PACKET (FOR LIQUID) 40 MEQ PO (10:16)
[2022-09-28] MEDS: ENOXAPARIN 40 MG/0.4 ML SYRINGE SUB-Q (10:19)
[2022-09-28] MEDS: cefTRIAXone 2 GM/NS 100 ML 2 GM/100 ML BAG IVPB (10:19)
[2022-09-28] MEDS: DOCUSATE SODIUM LIQ 100 MG/10 ML UDC PO ×2 (10:19→21:10)
[2022-09-28] MEDS: THIAMINE HCL 200 MG/2 ML VIAL 100 MG IV PUSH (10:20)
[2022-09-28] MEDS: PHARMACIST COMMUNICATION ORDER 1 EACH XX (10:36)
[2022-09-28] MEDS: KCL 20MEQ/0.9% SOD CHL 1,000 ML 50 ML IV CONT (12:22)
[2022-09-28] MEDS: FOLIC ACID 1 MG/0.2 ML INJ IV PUSH (12:22)
[2022-09-28 12:32] LABS: Glucose Point of Care 142 mg/dl (65-105)
--- NOTE | 2022-09-28 13:40 | P.CDI_ITS ---
CDI Query Clarification Request BMI 14.1 Nutritional Diagnostic Statement Severe protein calorie malnutrition as related to inadequate protein-energy intake with increased protein-energy needs in setting of chronic disease or condition (COPD) as evidenced by severe subcutaneous fat loss (orbital fat pads) and severe muscle wasting (temporalis). Please refer to the comprehensive nutrition assessment for further information. Please clarify the severity of protein calorie malnutrition if known: * Mild * Moderate * Severe * Other/Unspecified <Juliane Carlin RN - Last Filed: 09/28/22 13:45> Clarified Diagnosis Clarified Diagnosis: Agree patient has severe protein calorie malnutrition as related to inadequate protein-energy intake with increased protein-energy needs in setting of chronic disease or condition (COPD) as evidenced by severe subcutaneous fat loss (orbital fat pads)? and severe muscle wasting (temporalis). <Vicente Brooks MD - Last Filed: 10/13/22 19:29>
[2022-09-28] MEDS: LABETALOL HCL INJ 100 MG/20 ML VIAL 20 MG IV PUSH (14:08)
--- NOTE | 2022-09-28 14:59 | WPDPN ---
Progress Note: A&P Assessment and Plan (1) Hyponatremia: Code(s): E87.1 - Hypo-osmolality and hyponatremia Status: Acute Assessment and Plan: Sodium was 122 and then 123. Patient sodium levels were 134-136 in 2006. Continue with IV fluids.bmp every 4 hours. Check urine electrolytes and osmolality. Most likely this is secondary to dehydration. The patient appears to be dry. Continue with IV fluids. 09/27/2022 interval history: patient is quite agitated and not cooperative currently, patient is seen by installment agent, upon arrival patient met cretieria for sepsis as patient has elevated lactic acid her UA and CXR is negative and patient will have LP for further evaluation, and being treated ceftriaxone and vancomycin, s/p fall patient is found to have hip and pelvis x-ray read as subcapital fracture of the proximal left femoral neck, patient will be seen by an orthopedic, currently patient is not a candidate for surgical intervention, patient also has history of alcohol abuse will monitor for DT. once clinically stable will have PT/OT evaluate the patient. (2) Subcapital fracture of femur: Code(s): S72.019A - Unspecified intracapsular fracture of unspecified femur, initial encounter for closed fracture Status: Acute Assessment and Plan: The patient is in critical condition and is high risk for surgery at this point. However I did put a consult in for ortho. Continue with analgesics. (3) Chronic respiratory failure with hypoxia and hypercapnia: Code(s): J96.11 - Chronic respiratory failure with hypoxia; J96.12 - Chronic respiratory failure with hypercapnia Status: Acute Assessment and Plan: Continue oxygen at 2 L per nasal cannula. Patient is chronically on oxygen at home. Continue with nebulizer treatment (4) COPD (chronic obstructive pulmonary disease): Code(s): J44.9 - Chronic obstructive pulmonary disease, unspecified Status: Acute Assessment and Plan: Continue with oxygen and nebulizer treatments. (5) CHF (congestive heart failure), NYHA class I: Code(s): I50.9 - Heart failure, unspecified Status: Acute Assessment and Plan: An echo has been ordered. (6) Hypertension: Code(s): I10 - Essential (primary) hypertension Status: Chronic Assessment and Plan: P.r.n. hydralazine. (7) Unresponsive: Code(s): R41.89 - Other symptoms and signs involving cognitive functions and awareness Status: Acute Assessment and Plan: Patient has a white count over 20,000. The patient was empirically started on an IV antibiotic blood cultures are pending. ABGs were performed pH is normal. Brain CT was read as no intracranial hemorrhage mass or acute infarct atrophy and mild chronic white matter changes. Patient could be dehydrated and could be unresponsive because of the hyponatremia. Could also be hypertensive encephalopathy. The patient appears to be cachectic as well. (8) Sepsis: Qualifiers: Sepsis acute organ dysfunction status: unspecified Sepsis type: sepsis due to unspecified organism Qualified Code(s): A41.9 - Sepsis, unspecified organism Code(s): A41.9 - Sepsis, unspecified organism Status: Acute Assessment and Plan: Impression: Subcapital fracture of the proximal left femoral neck with displacement and increased varus angulation. Possible fecal impaction/constipation. Moderate probable emphysema. Mild compression deformity of L1 and L2, age indeterminate. Findings reported to Dr. Loera at the time of this reading. Hip/Pelvis X-Ray 09/26/22 18:53 Impression: Subcapital fracture of the proximal left femoral neck, as detailed above. White count is 20.2. Continue with Levaquin, Zosyn and vancomycin. Blood cultures are pending. Subjective Date/time seen: 09/27/22 14:59 Interval history: Altered mental status Narrative: This is a 76-year-old fe
--- NOTE | 2022-09-28 15:32 | WPDPN ---
Progress Note: A&P Assessment and Plan (1) Hyponatremia: Code(s): E87.1 - Hypo-osmolality and hyponatremia Status: Acute Assessment and Plan: Sodium was 122 and then 123. Patient sodium levels were 134-136 in 2006. Continue with IV fluids.bmp every 4 hours. Check urine electrolytes and osmolality. Most likely this is secondary to dehydration. The patient appears to be dry. Continue with IV fluids. 09/28/2022 interval history: patient is quite agitated and not cooperative currently, patient is seen by polishing machine operator, upon arrival patient met criteria for sepsis as patient has elevated lactic acid her UA and CXR is negative and patient will have LP for further evaluation, and being treated ceftriaxone and vancomycin, blood culture no growth so far, LP does not show any sign of infection, s/p fall patient is found to have hip and pelvis x-ray read as subcapital fracture of the proximal left femoral neck, patient will be seen by an orthopedic, currently patient is not a candidate for surgical intervention, to further evaluate patient had MRI of the brain, which showed chronic small vessel disease no acute finding, today patient family is present in the room,, patient also has history of alcohol abuse will monitor for DT. once clinically stable will have PT/OT evaluate the patient. (2) Subcapital fracture of femur: Code(s): S72.019A - Unspecified intracapsular fracture of unspecified femur, initial encounter for closed fracture Status: Acute Assessment and Plan: The patient is in critical condition and is high risk for surgery at this point. However I did put a consult in for ortho. Continue with analgesics. (3) Chronic respiratory failure with hypoxia and hypercapnia: Code(s): J96.11 - Chronic respiratory failure with hypoxia; J96.12 - Chronic respiratory failure with hypercapnia Status: Acute Assessment and Plan: Continue oxygen at 2 L per nasal cannula. Patient is chronically on oxygen at home. Continue with nebulizer treatment (4) COPD (chronic obstructive pulmonary disease): Code(s): J44.9 - Chronic obstructive pulmonary disease, unspecified Status: Acute Assessment and Plan: Continue with oxygen and nebulizer treatments. (5) CHF (congestive heart failure), NYHA class I: Code(s): I50.9 - Heart failure, unspecified Status: Acute Assessment and Plan: An echo has been ordered. (6) Hypertension: Code(s): I10 - Essential (primary) hypertension Status: Chronic Assessment and Plan: P.r.n. hydralazine. (7) Unresponsive: Code(s): R41.89 - Other symptoms and signs involving cognitive functions and awareness Status: Acute Assessment and Plan: Patient has a white count over 20,000. The patient was empirically started on an IV antibiotic blood cultures are pending. ABGs were performed pH is normal. Brain CT was read as no intracranial hemorrhage mass or acute infarct atrophy and mild chronic white matter changes. Patient could be dehydrated and could be unresponsive because of the hyponatremia. Could also be hypertensive encephalopathy. The patient appears to be cachectic as well. (8) Sepsis: Qualifiers: Sepsis acute organ dysfunction status: unspecified Sepsis type: sepsis due to unspecified organism Qualified Code(s): A41.9 - Sepsis, unspecified organism Code(s): A41.9 - Sepsis, unspecified organism Status: Acute Assessment and Plan: Impression: Subcapital fracture of the proximal left femoral neck with displacement and increased varus angulation. Possible fecal impaction/constipation. Moderate probable emphysema. Mild compression deformity of L1 and L2, age indeterminate. Findings reported to Dr. Loera at the time of this reading. Hip/Pelvis X-Ray 09/26/22 18:53 Impression: Subcapital fracture of the proximal left femoral neck, as detailed abo
[2022-09-28 16:57] LABS: Anion Gap 1 mmol/L (8-16); Blood Urea Nitrogen 19 mg/dL (7-17); Calcium 7.8 mg/dL (8.4-10.2); Carbon Dioxide 34 mmol/L (22-30); Chloride 89 mmol/L (98-107); Estimated CRCL calculation 35 ml/min; Estimated Glomerular Filt Rate > 60; Glucose 111 mg/dL (65-110); Potassium 3.8 mmol/L (3.4-5.0); Sodium 124 mmol/L (137-145)
[2022-09-28] MEDS: chlordiazePOXIDE (*CRX) 10 MG CAPSULE PO (17:22)
[2022-09-28 18:08] LABS: Glucose Point of Care 237 mg/dl (65-105)
--- NOTE | 2022-09-28 18:25 | PC.NURSE ---
This patient, Rosalba Montano, was transferred to [ 207] on 09/28/22 at 1815. Personal belongings sent with patient. Report given to [Kyree ]. Appropriate documentation sent with patient. Daughter Notified of move
[2022-09-28 23:45] LABS: Glucose Point of Care 127 mg/dl (65-105)
[2022-09-29] VITALS (22 sets, daily range): BP systolic 88–152; BP diastolic 49–89; PULSE 71–121; RESP 14–20; TEMP 35.8–36.6; O2SAT 87–100
[2022-09-29] MEDS: hydrALAZINE HCL 20 MG/ML VIAL 10 MG IV PUSH (00:01)
[2022-09-29] MEDS: chlordiazePOXIDE (*CRX) 10 MG CAPSULE PO ×3 (00:01→20:38)
[2022-09-29] MEDS: LORazepam INJ (*CRX) 2 MG/ML VIAL IV PUSH (01:28)
[2022-09-29] MEDS: KCL 20MEQ/0.9% SOD CHL 1,000 ML 50 ML IV CONT (02:00)
[2022-09-29] MEDS: CENTRAL LINE FLUSH 10 ML IV PUSH ×3 (05:30→21:24)
[2022-09-29 06:34] LABS: Hematocrit 37.3 % (37.0-47.0); Hemoglobin 12.6 g/dL (12.0-15.0); Immature Platelet Fraction Pct 6.7 % (0.9-11.2); Mean Corpuscular HGB Conc 33.8 g/dl (32-36); Mean Corpuscular Hemoglobin 32.6 pg (26-34); Mean Corpuscular Volume 96.4 fl (80-100); Mean Platelet Volume 10.1 fl (7.4-10.4); Platelet Count Result 140 k/mm3 (150-375); Red Blood Count 3.87 M/mm3 (4.2-5.4); Red Cell Distribution Width 13.8 % (11.5-14.5); White Blood Count 10.5 K/mm3 (4.5-10.0)
[2022-09-29 06:43] LABS: Alanine Aminotransferase 30 U/L (6-35); Alkaline Phosphatase 44 U/L (38-126); Anion Gap 0 mmol/L (8-16); Aspartate Amino Transferase 57 U/L (14-36); Bilirubin,Total 0.9 mg/dL (0.2-1.3); Blood Urea Nitrogen 16 mg/dL (7-17); Calcium 7.4 mg/dL (8.4-10.2); Carbon Dioxide 33 mmol/L (22-30); Chloride 92 mmol/L (98-107); Creatine Kinase 440 U/L (30-135); Estimated CRCL calculation 41 ml/min; Estimated Glomerular Filt Rate > 60; Glucose 119 mg/dL (65-110); Magnesium 1.4 mg/dL (1.6-2.3); Potassium 4.1 mmol/L (3.4-5.0); Sodium 125 mmol/L (137-145)
[2022-09-29 07:22] LABS: Glucose Point of Care 102 mg/dl (65-105)
--- NOTE | 2022-09-29 08:03 | P.CDI_ITS ---
CDI Query Clarification Request Documented history of CHF. CHF noted in the assessment and plan. Patient receiving Lasix IV. Pulmonary edema noted on the 09/27/22 chest xray. Please specify type and acuity of heart failure if known. * Acute * Chronic * Acute on Chronic * Unknown * Systolic * Diastolic * Combined Systolic and Diastolic * Unknown <Juliane Carlin RN - Last Filed: 09/29/22 08:06> Clarified Diagnosis Clarified Diagnosis: Patient with grade I diastolic dysfunction most likely has acute on chronic diastalic congestive heart failure <Vicente Brooks MD - Last Filed: 10/13/22 19:31>
[2022-09-29] MEDS: LEVALBUTEROL NEB 1.25 MG/3 ML INHALATION ×3 (08:10→19:26)
[2022-09-29] MEDS: IPRATROPIUM BR 0.02% INH SOLN 0.5 MG/2.5 ML VIAL INHALATION ×3 (08:10→19:26)
--- NOTE | 2022-09-29 08:48 | PCSTNOTE ---
Please refer to the Bedside Swallow Evaluation in the EMR. Please note, silent aspiration cannot be ruled out at bedside.
[2022-09-29] MEDS: FUROSEMIDE INJ 40 MG/4 ML VIAL 20 MG IV PUSH ×2 (08:59→16:16)
[2022-09-29] MEDS: cefTRIAXone 2 GM/NS 100 ML 2 GM/100 ML BAG IVPB (09:02)
[2022-09-29] MEDS: ENOXAPARIN 40 MG/0.4 ML SYRINGE SUB-Q (09:07)
[2022-09-29] MEDS: THIAMINE HCL 200 MG/2 ML VIAL 100 MG IV PUSH (09:16)
--- NOTE | 2022-09-29 09:30 | PM.PNNEP ---
Progress Note: A&P Assessment and Plan (1) Hyponatremia: Code(s): E87.1 - Hypo-osmolality and hyponatremia Status: Acute Assessment and Plan: review of labs suggest acute on chronic evaluation to date: urine electrolytes prerenal SPEP/UPEP and serum/urine osmo pending TSH and cortisol okay CT of head negative CXR results noted (known COPD) no culprit medications s/p 3% saline on admission on normal saline IVF + IV lasix currently follow trend of repeat sodiums (2) Closed left hip fracture: Qualifiers: Encounter type: subsequent encounter Fracture healing: with routine healing Qualified Code(s): S72.002D - Fracture of unspecified part of neck of left femur, subsequent encounter for closed fracture with routine healing Code(s): S72.002A - Fracture of unspecified part of neck of left femur, initial encounter for closed fracture Status: Acute Assessment and Plan: as noted by admission imaging Orthopedics following (3) Hypertension: Code(s): I10 - Essential (primary) hypertension Status: Chronic Assessment and Plan: better controlled at this time continue current medications follow trend of hemodynamics (4) Rhabdomyolysis: Code(s): M62.82 - Rhabdomyolysis Status: Acute Assessment and Plan: follow trend of CPK - improving on gentle IVFs Will continue to follow. Subjective Date/time seen: 09/29/22 09:30 Interval history: Follow-up for acute hyponatremia. Transferred out of ICU yesterday; sodium slowly improving with normal saline IVF and IV lasix; mentation seems stable if not better at this time; depending on swallow study, plan on switching IVF/IV diuretics to oral salt tablets and oral diuretic therapy; no apparent distress noted at the time of my visit. Exam Narrative: General: frail cachectic female in NAD Heart: tachycardic at times; normal S1 and S2; no rub Lungs: decreased at bases Abdomen: soft, nontender, nondistended, positive bowel sounds Extremities: no cyanosis or clubbing; trace edema Skin: warm and intact Objective Data Vital Signs Vital Signs: Vital Signs Temp Pulse Pulse Resp BP Pulse Ox O2 Del Method 09/29/22 08:27 105 H 20 09/29/22 08:14 97 16 94 Nasal Cannula 09/29/22 08:10 97 20 09/29/22 08:00 97.6 F 95 14 152/89 H 96 09/29/22 06:00 112 H 09/29/22 04:00 95 09/29/22 04:00 97.6 F 86 18 150/75 H 100 09/29/22 04:00 85 09/29/22 04:00 88 18 98 Nasal Cannula 09/29/22 02:00 88 09/29/22 00:00 107 H 09/28/22 22:00 90 09/29/22 00:00 84 18 98 Nasal Cannula 09/29/22 00:00 94 09/28/22 23:58 97.7 F 84 18 148/107 H 98 09/28/22 20:00 100 09/28/22 20:00 97.5 F L 87 18 172/95 H 98 09/28/22 19:57 87 20 98 Nasal Cannula 09/28/22 18:13 106 H 20 09/28/22 18:05 102 H 22 H 09/28/22 17:57 93 09/28/22 16:00 99 Nasal Cannula 09/28/22 14:00 177/105 H 09/28/22 16:00 98.2 F 90 24 H 138/91 H 99 09/28/22 16:00 78 09/28/22 14:00 120 H 09/28/22 14:08 125 H 09/28/22 13:48 108 H 18 Intake/Output Intake/Output: Intake & Output 09/26/22 09/27/22 09/28/22 09/29/22 23:59 23:59 23:59 23:59 Intake Total 1500 1966.0 1119.2 1260 Output Total 1300 1125 2850 750 Balance 200 841.0 -1730.8 510 Meds/Results Medications: Active Medications Generic Name Dose Route Start Last Admin Trade Name Freq PRN Reason Stop Dose Admin Acetaminophen 650 mg 09/26/22 19:06 Acetaminophen 650 Mg Suppository RECTAL Q6H PRN Mild Pain (1-3) or Fever Albuterol 2 puff 09/29/22 09:52 Albuterol Sulfate (*Sp) Aerosol 1 Puff INHALATION QID PRN Shortness Of Breath Or Wheezing Amlodipine Besylate 5 mg 09/30/22 09:00 Amlodipine Besylate 5 M
--- NOTE | 2022-09-29 10:59 | PM.CNOR ---
Assessment and Plan Assessment and plan (1) Closed left hip fracture: Qualifiers: Encounter type: subsequent encounter Fracture healing: with routine healing Qualified Code(s): S72.002D - Fracture of unspecified part of neck of left femur, subsequent encounter for closed fracture with routine healing Code(s): S72.002A - Fracture of unspecified part of neck of left femur, initial encounter for closed fracture Status: Acute Assessment and Plan: MARCO IS IMPROVING FAR HER MENTAL STAUS IS CONCERNED. HER SODIUM IS STILL LOW. SHE WILL REQUIRE LEFT HIP HEMIARTHROPLASTY ONCE SHE HAS BEEN STABILIZED. HISTORY, EXAM AND RADIOGRAPHS REVIEWED WITH THE PATIENT. REFERRING PHYSICIAN RECORDS AND IMAGES REVIEWED. CONDITION, NATURE, ETIOLOGY AND COURSE OF NATURAL HISTORY REVIEWED. CONSERVATIVE AND OPERATIVE TREATMENT OPTIONS REVIEWED WELL THE RISKS AND BENEFITS OF EACH. DISCUSSED NONOPERATIVE AND OPERATIVE TREATMENT OPTIONS WITH THE PATIENT. THE PATIENT'S QUESTIONS WERE ANSWERED. THE PATIENT DESIRES OPERATIVE TREATMENT. RISKS OF SURGERY INCLUDING BUT NOT LIMITED TO NEUROVASCULAR DAMAGE, WOUND COMPLICATIONS, BLOOD CLOT, PULMONARY EMBOLUS, STROKE, NH, ANESTHETIC RISKS UP TO AND INCLUDING WERE REVIEWED. CONTINUED PAIN AND POSSIBLE DYSFUNCTION WERE EXPLAINED. NO GUARANTEES WERE OFFERED. THE PATIENT UNDERSTANDS AND WISHES TO PROCEED. History of Present Illness HPI Consult date: 09/29/22 Chief complaint: Sepsis,Hyponatremia,Left Hip Fx,Unresponsive Narrative: MARCO WAS ADMITTED TO [facility] AFTER HAVING BEEN FOUND UNRESPONSIVE AT HER HOME. THERE WAS NO EVIDENCE OF HOW LONG SHE HAD BEEN UNRESPONSIVE. SHE WAS BROUGHT TO THE ED AND WAS THEN ADMITTED TO THE ICU. SHE WAS FOUND ALSO TO HAVE A VERY LOW SODIUM AND EVENTUALLY HER SPINAL FLUID WAS ANALYZED AND FOUND TO HAVE MANY WBCs. SHE HAS SINCE IMPROVED HER RESPONSIVENESS AND IS NOW SPEAKING BUT VERY CONFUSED. SHE DOES NOT REMEMBER ANYTHING FROM THE LAST FEW DAYS. SHE COMPLAINS OF LEFT HIP PAIN. SHE MOVES ALL EXTREMITIES. SHE DENIES ANY OTHER EXTREMITY PAIN OR NECK OR BACK PAIN. [facility] Past Medical History Medical History CHF (congestive heart failure), NYHA class I Chronic respiratory failure with hypoxia and hypercapnia COPD (chronic obstructive pulmonary disease) Hypertension Surgical History Surgical History H/O hernia repair Family History Family History Father Cancer Mother Acute myocardial infarction Hypertension Social History Social History Social History: she lives alone and only has one child(daughter) and she is . 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 She was a smoker and quit 15 years ago. code status dnr Smoking status: Former smoker Alcohol intake: current Drinks per week: 14 Substance use: unknown Spiritual care concerns: No Meds Home Medications and Allergies Home Medications Medication Instructions Recorded Confirmed Type albuterol sulfate 90 mcg/actuation 2 puff inhalation QID PRN 09/26/22 09/26/22 History aerosol inhaler Shortness Of Breath Or Wheezing amlodipine 5 mg tablet 5 mg PO DAILY 09/26/22 09/26/22 History furosemide 20 mg tablet 20 mg PO DAILY PRN Edema 09/26/22 09/26/22 History lisinopril 40 mg tablet 40 mg PO DAILY 09/26/22 09/27/22 History Allergies Allergy/AdvReac Type Severity Reaction Status Date / Time No Known Allergies Allergy Unknown Verified 01/17/07 16:38 Vital Signs Vital Signs - 24 hr 09/28/22 12:00 09/28/22 12:00 09/28/22 12:00 Temperature 36.6 C Pulse Rate 88 98 Pulse Rate [Bilateral Pedal (Dorsalis Pedis) Palpation] Respiratory Rate 23 H Blood Pressure 114/78 Pulse Oximetry 99 97 Oxygen Delivery Nasal Cannula Oxygen Flow Rate 1
[2022-09-29] MEDS: DOCUSATE SODIUM LIQ 100 MG/10 ML UDC PO ×2 (11:08→20:38)
[2022-09-29] MEDS: polyethylene glycoL 3350 17 GM POWD.PACK PO (11:10)
[2022-09-29] MEDS: FOLIC ACID 1 MG/0.2 ML INJ IV PUSH (11:13)
[2022-09-29] MEDS: MAGNESIUM SULF 4 GM/WATER100ML 4 GM/100 ML BAG IVPB (11:15)
[2022-09-29 11:49] LABS: Glucose Point of Care 108 mg/dl (65-105)
--- NOTE | 2022-09-29 12:49 | PCSTNOTE ---
Please refer to the Modified Barium Swallow Evaluation in the EMR.
--- NOTE | 2022-09-29 15:04 | WPDPN ---
Progress Note: A&P Assessment and Plan (1) Hyponatremia: Code(s): E87.1 - Hypo-osmolality and hyponatremia Status: Acute Assessment and Plan: Sodium was 122 and then 123. Patient sodium levels were 134-136 in 2006. Continue with IV fluids.bmp every 4 hours. Check urine electrolytes and osmolality. Most likely this is secondary to dehydration. The patient appears to be dry. Continue with IV fluids. 09/29/2022 interval history: patient is quite agitated and not cooperative currently, patient is seen by make up girl, upon arrival patient met criteria for sepsis as patient has elevated lactic acid her UA and CXR is negative and patient will have LP for further evaluation, and being treated ceftriaxone and vancomycin, blood culture no growth so far, LP does not show any sign of infection, s/p fall patient is found to have hip and pelvis x-ray read as subcapital fracture of the proximal left femoral neck, patient was seen by an orthopedic, will need ORIF once clinically stable, currently patient is not a candidate for surgical intervention, to further evaluate patient had MRI of the brain, which showed chronic small vessel disease no acute finding, patient with hyponatremia most likely 2/2 to alcohol abuse will monitor, patient also has history of alcohol abuse will monitor for DT. once clinically stable will have PT/OT evaluate the patient. (2) Subcapital fracture of femur: Code(s): S72.019A - Unspecified intracapsular fracture of unspecified femur, initial encounter for closed fracture Status: Acute Assessment and Plan: The patient is in critical condition and is high risk for surgery at this point. However I did put a consult in for ortho. Continue with analgesics. (3) Chronic respiratory failure with hypoxia and hypercapnia: Code(s): J96.11 - Chronic respiratory failure with hypoxia; J96.12 - Chronic respiratory failure with hypercapnia Status: Acute Assessment and Plan: Continue oxygen at 2 L per nasal cannula. Patient is chronically on oxygen at home. Continue with nebulizer treatment (4) COPD (chronic obstructive pulmonary disease): Code(s): J44.9 - Chronic obstructive pulmonary disease, unspecified Status: Acute Assessment and Plan: Continue with oxygen and nebulizer treatments. (5) CHF (congestive heart failure), NYHA class I: Code(s): I50.9 - Heart failure, unspecified Status: Acute Assessment and Plan: An echo has been ordered. (6) Hypertension: Code(s): I10 - Essential (primary) hypertension Status: Chronic Assessment and Plan: P.r.n. hydralazine. (7) Unresponsive: Code(s): R41.89 - Other symptoms and signs involving cognitive functions and awareness Status: Acute Assessment and Plan: Patient has a white count over 20,000. The patient was empirically started on an IV antibiotic blood cultures are pending. ABGs were performed pH is normal. Brain CT was read as no intracranial hemorrhage mass or acute infarct atrophy and mild chronic white matter changes. Patient could be dehydrated and could be unresponsive because of the hyponatremia. Could also be hypertensive encephalopathy. The patient appears to be cachectic as well. (8) Sepsis: Qualifiers: Sepsis acute organ dysfunction status: unspecified Sepsis type: sepsis due to unspecified organism Qualified Code(s): A41.9 - Sepsis, unspecified organism Code(s): A41.9 - Sepsis, unspecified organism Status: Acute Assessment and Plan: Impression: Subcapital fracture of the proximal left femoral neck with displacement and increased varus angulation. Possible fecal impaction/constipation. Moderate probable emphysema. Mild compression deformity of L1 and L2, age indeterminate. Findings reported to Dr. Loera at the time of this reading. Hip/Pelvis X-Ray 09/26/22 18:53 Impression: Subcapital fr
[2022-09-29 16:22] LABS: Anion Gap 2 mmol/L (8-16); Blood Urea Nitrogen 15 mg/dL (7-17); Calcium 7.6 mg/dL (8.4-10.2); Carbon Dioxide 36 mmol/L (22-30); Chloride 85 mmol/L (98-107); Estimated CRCL calculation 41 ml/min; Estimated Glomerular Filt Rate > 60; Glucose 112 mg/dL (65-110); Potassium 3.1 mmol/L (3.4-5.0); Sodium 123 mmol/L (137-145)
[2022-09-29] MEDS: POTASSIUM CHLORIDE 20 MEQ PACKET (FOR LIQUID) 40 MEQ PO (18:04)
[2022-09-29] MEDS: SODIUM CHLORIDE 1 GM TABLET PO (18:05)
[2022-09-29 18:23] LABS: Glucose Point of Care 184 mg/dl (65-105)
--- NOTE | 2022-09-29 18:50 | PC.NURSE ---
pt med/tel status- report given to Aspen RN - pt transferred to room 306 via bed with O2 on 1l/nc -personal belongings with pt
[2022-09-29 23:37] LABS: Glucose Point of Care 122 mg/dl (65-105)
[2022-09-30] VITALS (19 sets, daily range): BP systolic 108–170; BP diastolic 59–100; PULSE 73–116; RESP 14–20; TEMP 36.1–37.2; O2SAT 95–100
[2022-09-30] MEDS: IPRATROPIUM BR 0.02% INH SOLN 0.5 MG/2.5 ML VIAL INHALATION ×4 (01:36→19:47)
[2022-09-30] MEDS: LEVALBUTEROL NEB 1.25 MG/3 ML INHALATION ×4 (01:36→19:47)
[2022-09-30] MEDS: CENTRAL LINE FLUSH 10 ML IV PUSH ×3 (05:11→21:43)
[2022-09-30 05:26] LABS: Hematocrit 34.7 % (37.0-47.0); Hemoglobin 11.6 g/dL (12.0-15.0); Immature Platelet Fraction Pct 6.3 % (0.9-11.2); Mean Corpuscular HGB Conc 33.4 g/dl (32-36); Mean Corpuscular Hemoglobin 32.6 pg (26-34); Mean Corpuscular Volume 97.5 fl (80-100); Platelet Count Result 138 k/mm3 (150-375); Red Blood Count 3.56 M/mm3 (4.2-5.4); Red Cell Distribution Width 13.9 % (11.5-14.5); White Blood Count 7.3 K/mm3 (4.5-10.0)
[2022-09-30 05:40] LABS: Alanine Aminotransferase 29 U/L (6-35); Alkaline Phosphatase 46 U/L (38-126); Anion Gap -1 mmol/L (8-16); Aspartate Amino Transferase 40 U/L (14-36); Bilirubin,Total 0.7 mg/dL (0.2-1.3); Blood Urea Nitrogen 20 mg/dL (7-17); Calcium 7.6 mg/dL (8.4-10.2); Carbon Dioxide 39 mmol/L (22-30); Chloride 89 mmol/L (98-107); Creatine Kinase 256 U/L (30-135); Estimated CRCL calculation 41 ml/min; Estimated Glomerular Filt Rate > 60; Glucose 95 mg/dL (65-110); Magnesium 2.5 mg/dL (1.6-2.3); Potassium 3.3 mmol/L (3.4-5.0); Sodium 127 mmol/L (137-145)
[2022-09-30 05:41] LABS: Glucose Point of Care 99 mg/dl (65-105)
[2022-09-30 08:27] LABS: Glucose Point of Care 90 mg/dl (65-105)
[2022-09-30] MEDS: polyethylene glycoL 3350 17 GM POWD.PACK PO (09:55)
[2022-09-30] MEDS: THIAMINE HCL 200 MG/2 ML VIAL 100 MG IV PUSH (09:55)
[2022-09-30] MEDS: FOLIC ACID 1 MG/0.2 ML INJ IV PUSH (09:55)
[2022-09-30] MEDS: amLODIPine BESYLATE 5 MG TABLET PO (09:56)
[2022-09-30] MEDS: lisinopriL 20 MG TABLET 40 MG PO (09:56)
[2022-09-30] MEDS: FUROSEMIDE 20 MG TABLET PO ×2 (09:56→17:56)
[2022-09-30] MEDS: SODIUM CHLORIDE 1 GM TABLET PO ×2 (09:56→17:56)
[2022-09-30] MEDS: ENOXAPARIN 40 MG/0.4 ML SYRINGE SUB-Q (09:56)
[2022-09-30] MEDS: DOCUSATE SODIUM LIQ 100 MG/10 ML UDC PO ×2 (09:56→21:38)
--- NOTE | 2022-09-30 10:33 | P.CDI_ITS ---
CDI Query Clarification Request Documented history of CHF. CHF noted in the assessment and plan. Patient receiving IV Lasix. Pulmonary edema noted on the 09/27/22 chest xray. Please specify type and acuity of heart failure if known. * Acute * Chronic * Acute on Chronic * Unknown * Systolic * Diastolic * Combined Systolic and Diastolic * Unknown <Juliane Carlin RN - Last Filed: 09/30/22 10:36> Clarified Diagnosis Clarified Diagnosis: * Acute on Chronic <Brisa Le MD - Last Filed: 09/30/22 12:51>
--- NOTE | 2022-09-30 10:33 | WPDCDIQUERY2 ---
CDI Query Clarification Request Documented history of CHF. CHF noted in the assessment and plan. Patient receiving IV Lasix. Pulmonary edema noted on the 09/27/22 chest xray. Please specify type and acuity of heart failure if known. Acute Chronic Acute on Chronic Unknown Systolic Diastolic Combined Systolic and Diastolic Unknown <Juliane Carlin RN - Last Filed: 09/30/22 10:36> Clarified Diagnosis Clarified Diagnosis: Acute on Chronic <Brisa Le MD - Last Filed: 09/30/22 12:51>
--- NOTE | 2022-09-30 10:37 | P.CDI_ITS ---
CDI Query Clarification Request BMI 14.1 Nutritional Diagnostic Statement Severe protein calorie malnutrition as related to inadequate protein-energy intake with increased protein-energy needs in the setting of chronic disease or condition (COPD) as evidenced by severe subcutaneous fat loss (orbital fat pads) and severe muscle wasting (temporalis). Please refer to the comprehensive nutrition assessment for further information. Please clarify severity of protein calorie malnutrition if known: * Mild * Moderate * Severe * Other/Unspecified <Juliane Carlin RN - Last Filed: 09/30/22 10:43> Clarified Diagnosis Clarified Diagnosis: MODERATE <Brisa Le MD - Last Filed: 09/30/22 12:51>
[2022-09-30 11:49] LABS: Glucose Point of Care 148 mg/dl (65-105)
[2022-09-30] MEDS: cefTRIAXone 2 GM/NS 100 ML 2 GM/100 ML BAG IVPB (13:05)
--- NOTE | 2022-09-30 13:10 | PM.PNNEP ---
Progress Note: A&P Assessment and Plan (1) Hyponatremia: Code(s): E87.1 - Hypo-osmolality and hyponatremia Status: Acute Assessment and Plan: slow improvement noted review of labs suggest acute on chronic evaluation to date: urine electrolytes prerenal SPEP/UPEP and serum/urine osmo pending TSH and cortisol okay CT of head negative CXR results noted (known COPD) no culprit medications s/p 3% saline on admission on salt tabs + lasix follow trend of repeat sodiums (2) Closed left hip fracture: Qualifiers: Encounter type: subsequent encounter Fracture healing: with routine healing Qualified Code(s): S72.002D - Fracture of unspecified part of neck of left femur, subsequent encounter for closed fracture with routine healing Code(s): S72.002A - Fracture of unspecified part of neck of left femur, initial encounter for closed fracture Status: Acute Assessment and Plan: as noted by admission imaging Orthopedics following will need surgical intervention eventually (3) Hypertension: Code(s): I10 - Essential (primary) hypertension Status: Chronic Assessment and Plan: better controlled at this time continue current medications follow trend of hemodynamics (4) Rhabdomyolysis: Code(s): M62.82 - Rhabdomyolysis Status: Acute Assessment and Plan: follow trend of CPK - improving continue supportive therapy Will continue to follow. Subjective Date/time seen: 09/30/22 13:10 Interval history: Follow-up for acute hyponatremia. Sodium continues to improve with interventions to date -- transitioned to salt tablets and oral lasix yesterday afternoon; mentation seems stable at this time; no issues/events overnight or earlier this AM. Exam Narrative: General: frail cachectic female in NAD Heart: tachycardic at times; normal S1 and S2; no rub Lungs: decreased at bases Abdomen: soft, nontender, nondistended, positive bowel sounds Extremities: no cyanosis or clubbing; trace edema Skin: no rash Objective Data Vital Signs Vital Signs: Vital Signs Temp Pulse Resp BP Pulse Ox O2 Del Method O2 Flow Rate 09/30/22 13:08 107 H 20 09/30/22 10:09 97.7 F 86 18 125/66 100 09/30/22 07:12 98 Nasal Cannula 1 09/30/22 04:00 97.4 F L 18 139/78 09/30/22 04:00 73 09/30/22 01:45 90 20 09/30/22 01:36 92 20 09/30/22 01:08 163/85 H 09/29/22 20:00 97.3 F L 97 16 144/79 H 96 09/30/22 00:00 111 H 09/30/22 00:00 97.0 F L 116 H 20 170/100 H 95 09/30/22 00:24 97.0 F L 116 H 20 170/100 H 95 09/29/22 20:00 121 H 09/29/22 20:00 97 Nasal Cannula 1 09/29/22 19:35 96 20 09/29/22 19:28 95 20 96 Nasal Cannula 1 09/29/22 19:27 95 20 Intake/Output Intake/Output: Intake & Output 09/27/22 09/28/22 09/29/22 09/30/22 23:59 23:59 23:59 23:59 Intake Total 1966.0 1119.2 2212.8 816.4 Output Total 1125 2850 1725 650 Balance 841.0 -1730.8 487.8 166.4 Meds/Results Medications: Active Medications Generic Name Dose Route Start Last Admin Trade Name Freq PRN Reason Stop Dose Admin Acetaminophen 650 mg 09/30/22 06:24 Acetaminophen 325 Mg Tablet PO Q4H PRN Mild Pain (1-3) or Fever Hydrocodone Bitart/Acetaminophen 1 tab 09/29/22 14:40 Hydrocodone/Acetaminophen (*Crx) 5-325 Mg Tablet PO Q4H PRN Pain Rated 4-6 Albuterol 2 puff 09/29/22 09:52 Albuterol Sulfate (*Sp) Aerosol 1 Puff INHALATION QID PRN Shortness Of Breath Or Wheezing Amlodipine Besylate 5 mg 09/30/22 09:00 09/30/22 09:56 Amlodipine Besylate 5 Mg Tablet PO 5 mg DAILY LIVIER Administration Bisacodyl 10 mg 09/28/22 08:06 Bisacodyl 10 Mg Suppository RECTAL QAM PRN Constipation Chlordiazepoxide HCl 10 mg 09/28/22 14:32 09/29/22 20:38 Chlordiazepoxid
--- NOTE | 2022-09-30 14:09 | PM.IMPN ---
Progress Note: A&P Assessment and Plan (1) Hyponatremia: Code(s): E87.1 - Hypo-osmolality and hyponatremia Status: Acute Assessment and Plan: Pt is s/p fall patient is found to have hip and pelvis x-ray read as subcapital fracture of the proximal left femoral neck, patient was seen by an orthopedic, will need ORIF once clinically stable, currently patient is not a candidate for surgical intervention, to further evaluate patient had MRI of the brain, which showed chronic small vessel disease no acute finding, patient with hyponatremia most likely 2/2 to alcohol abuse will monitor. continue to watch mental status and sodium levels pt appears more calm today (2) Subcapital fracture of femur: Code(s): S72.019A - Unspecified intracapsular fracture of unspecified femur, initial encounter for closed fracture Status: Acute Assessment and Plan: The patient is in critical condition and is high risk for surgery at this point. Pt seen by orthopedics pt will benefit from LEFT HIP HEMIARTHROPLASTY once sodium levels is better. Continue to monitor sodium levels Pt is on bedrest (3) Chronic respiratory failure with hypoxia and hypercapnia: Code(s): J96.11 - Chronic respiratory failure with hypoxia; J96.12 - Chronic respiratory failure with hypercapnia Status: Acute Assessment and Plan: Continue oxygen at 2 L per nasal cannula. Patient is chronically on oxygen at home. Continue with nebulizer treatment (4) COPD (chronic obstructive pulmonary disease): Code(s): J44.9 - Chronic obstructive pulmonary disease, unspecified Status: Acute Assessment and Plan: Continue with oxygen and nebulizer treatments. (5) CHF (congestive heart failure), NYHA class I: Code(s): I50.9 - Heart failure, unspecified Status: Acute Assessment and Plan: An echo has been ordered. (6) Hypertension: Code(s): I10 - Essential (primary) hypertension Status: Chronic Assessment and Plan: P.r.n. hydralazine. (7) Unresponsive: Code(s): R41.89 - Other symptoms and signs involving cognitive functions and awareness Status: Acute Assessment and Plan: Patient has a white count over 20,000. The patient was empirically started on an IV antibiotic blood cultures are pending. ABGs were performed pH is normal. Brain CT was read as no intracranial hemorrhage mass or acute infarct atrophy and mild chronic white matter changes. Patient could be dehydrated and could be unresponsive because of the hyponatremia. Could also be hypertensive encephalopathy. The patient appears to be cachectic as well. (8) Sepsis: Qualifiers: Sepsis acute organ dysfunction status: unspecified Sepsis type: sepsis due to unspecified organism Qualified Code(s): A41.9 - Sepsis, unspecified organism Code(s): A41.9 - Sepsis, unspecified organism Status: Acute Assessment and Plan: White count is 20.2. improved to 7.3 now Continue with Levaquin, Zosyn and vancomycin. Blood cultures are pending. can dc IV abx once cultures are back Subjective Date/time seen: 09/30/22 14:09 Interval history: Pt is s/p fall patient is found to have hip and pelvis x-ray read as subcapital fracture of the proximal left femoral neck, patient was seen by an orthopedic, will need ORIF once clinically stable, currently patient is not a candidate for surgical intervention, to further evaluate patient had MRI of the brain, which showed chronic small vessel disease no acute finding, patient with hyponatremia most likely 2/2 to alcohol abuse will monitor, Plan to correct sodium levels prior to ortho surgery Review of Systems Review of Systems: All systems reviewed & are unremarkable except as noted in HPI and below (HPI) ROS unobtainable: Yes unobtainable due to medical condition and unobtainable due to mental status Exam Narrative: Malnourished Patient is comfort
[2022-09-30 14:43] LABS: Albumin 3.3 g/dL (3.8-4.8); Alpha 1 Globulin 0.3 g/dL (0.2-0.3); Alpha 2 Globulin 0.5 g/dL (0.5-0.9); Beta 1 Globulin 0.3 g/dL (0.4-0.6); Gamma Globulin 0.6 g/dL (0.8-1.7); Interpretation Consistent with; Protein, Total 5.3 g/dL (6.1-8.1)
[2022-09-30 16:48] LABS: Glucose Point of Care 147 mg/dl (65-105)
--- NOTE | 2022-09-30 19:13 | PC.NURSE ---
Pt has been more alert per family than pt was when she came in. Pt compliant with medication. Pt denies any pain. Pt had sitter at bedside per physician order. Pt was monitored for any change in status this shift.
[2022-09-30 20:33] LABS: Osmolality, Urine 618 mOsm/kg (50-1200)
[2022-09-30 21:11] LABS: Glucose Point of Care 101 mg/dl (65-105)
[2022-09-30 21:15] LABS: Sodium 131 mmol/L (137-145)
[2022-10-01] VITALS (19 sets, daily range): BP systolic 94–121; BP diastolic 41–66; PULSE 72–108; RESP 16–97; TEMP 36.5–37.8; O2SAT 92–98
[2022-10-01 00:22] LABS: Glucose Point of Care 122 mg/dl (65-105)
[2022-10-01] MEDS: LEVALBUTEROL NEB 1.25 MG/3 ML INHALATION ×4 (02:07→20:05)
[2022-10-01] MEDS: IPRATROPIUM BR 0.02% INH SOLN 0.5 MG/2.5 ML VIAL INHALATION ×4 (02:08→20:05)
[2022-10-01] MEDS: HYDROcodone/acetaminophen (*CRX) 5-325 MG TABLET 1 TAB PO (04:54)
[2022-10-01 06:39] LABS: Hematocrit 32.1 % (37.0-47.0); Hemoglobin 10.4 g/dL (12.0-15.0); Mean Corpuscular HGB Conc 32.4 g/dl (32-36); Mean Corpuscular Hemoglobin 32.8 pg (26-34); Mean Corpuscular Volume 101.3 fl (80-100); Platelet Count Result 139 k/mm3 (150-375); Red Blood Count 3.17 M/mm3 (4.2-5.4); Red Cell Distribution Width 14.3 % (11.5-14.5); White Blood Count 6.4 K/mm3 (4.5-10.0)
[2022-10-01] MEDS: CENTRAL LINE FLUSH 10 ML IV PUSH ×3 (06:39→21:35)
[2022-10-01 06:41] LABS: Glucose Point of Care 106 mg/dl (65-105)
[2022-10-01 06:52] LABS: Alanine Aminotransferase 25 U/L (6-35); Albumin Level 2.8 g/dL (3.5-5.1); Alkaline Phosphatase 42 U/L (38-126); Aspartate Amino Transferase 27 U/L (14-36); Bilirubin,Total 0.4 mg/dL (0.2-1.3); Blood Urea Nitrogen 21 mg/dL (7-17); Calcium 7.3 mg/dL (8.4-10.2); Carbon Dioxide > 40 mmol/L (22-30); Chloride 91 mmol/L (98-107); Creatine Kinase 110 U/L (30-135); Estimated CRCL calculation 38 ml/min; Estimated Glomerular Filt Rate > 60; Glucose 95 mg/dL (65-110); Potassium 3.3 mmol/L (3.4-5.0); Sodium 131 mmol/L (137-145)
[2022-10-01 08:03] LABS: Glucose Point of Care 93 mg/dl (65-105)
[2022-10-01] MEDS: cefTRIAXone 2 GM/NS 100 ML 2 GM/100 ML BAG IVPB (08:34)
[2022-10-01] MEDS: SODIUM CHLORIDE 1 GM TABLET PO ×2 (08:36→16:39)
[2022-10-01] MEDS: ENOXAPARIN 40 MG/0.4 ML SYRINGE SUB-Q (08:36)
[2022-10-01] MEDS: FUROSEMIDE 20 MG TABLET PO ×2 (08:37→16:40)
[2022-10-01] MEDS: THIAMINE HCL 200 MG/2 ML VIAL 100 MG IV PUSH (08:37)
[2022-10-01] MEDS: FOLIC ACID 1 MG TABLET PO (10:33)
--- NOTE | 2022-10-01 11:52 | PCNFU ---
Nutrition Follow-Up Complete: Severe Protein Calorie Malnutrition as related to inadequate protein-energy intake with increased protein-energy needs in setting of chronic disease or condition (COPD) as evidenced by severe subcutaneous fat loss (orital fat pads) and severe muscle wasting(temporalis) . Goal:Meet estimated nutritional needs. Pt current nutrition is NPO for surgery, was on a heart healthy diet. Nutrition recommendation: Advance diet post op Last recorded weight is 35.4 kg - up from 32kg on admission. Bowel Motility: +BM 09/30 Labs Reviewed: Hgb:10.4, Alb:2.8, NA:131, K:3.3, BUN:21, Cr:0.6, Glu:106 Meds Noted: lasix, lovenox, novolog, thiamin Skin: no skin issues noted Additional Notes: Pt is NPO for surgery today, Was on a heart healthy diet with 50-100% intake. Recommend to resume diet post op and advance as tolerated back to heart healthy. Will monitor weight, labs, skin, meds, oral intake every 3 days.
[2022-10-01 11:55] LABS: Glucose Point of Care 104 mg/dl (65-105)
--- NOTE | 2022-10-01 12:15 | P.PNNP_ITS ---
Progress Note: A&P Assessment and Plan (1) Hyponatremia: Code(s): E87.1 - Hypo-osmolality and hyponatremia Status: Acute Assessment and Plan: * slow improvement noted * review of labs suggest acute on chronic * evaluation to date: * urine electrolytes prerenal * SPEP/UPEP and serum/urine osmo pending * TSH and cortisol okay * CT of head negative * CXR results noted (known COPD) * no culprit medications * s/p 3% saline on admission * on salt tabs + lasix * improved enought that cleared for surgery from renal perspective * follow trend of repeat sodiums (2) Closed left hip fracture: Qualifiers: Encounter type: subsequent encounter Fracture healing: with routine healing Qualified Code(s): S72.002D - Fracture of unspecified part of neck of left femur, subsequent encounter for closed fracture with routine healing Code(s): S72.002A - Fracture of unspecified part of neck of left femur, initial encounter for closed fracture Status: Acute Assessment and Plan: * as noted by admission imaging * Orthopedics following * will need surgical intervention eventually (3) Chronic respiratory failure with hypoxia and hypercapnia: Code(s): J96.11 - Chronic respiratory failure with hypoxia; J96.12 - Chronic respiratory failure with hypercapnia Status: Chronic Assessment and Plan: * due to known COPD and CHF * chronically on 2L by [place] at baseline * complicated by underlying pneumonia * on antibiotics * PRN diamox given CO2 retention (4) Hypertension: Code(s): I10 - Essential (primary) hypertension Status: Chronic Assessment and Plan: * better controlled at this time * continue current medications * follow trend of hemodynamics (5) Rhabdomyolysis: Code(s): M62.82 - Rhabdomyolysis Status: Acute Assessment and Plan: * resolving * continue supportive therapy Will continue to follow. Subjective Date/time seen: 10/01/22 12:15 Interval history: Follow-up for acute hyponatremia. Mentation seems stable if not improving at the time of my visit; sodium continues to improved with current therapy/interventions; no apparent distress voiced currently; no other events overnight or earlier this morning; possible surgery today (?) Exam Narrative: General: frail cachectic female in NAD Heart: normal S1 and S2; no rub Lungs: decreased at bases and coarse throoughout Abdomen: soft, nontender, nondistended, positive bowel sounds Extremities: no cyanosis or clubbing; trace edema Skin: no nodules Objective Data Vital Signs Vital Signs: Vital Signs Temp Pulse Pulse Resp BP Pulse Ox O2 Del Method 10/01/22 10:37 98.6 F 78 17 100/51 L 97 10/01/22 08:47 110/50 L 10/01/22 08:00 86 10/01/22 08:00 86 20 92 Nasal Cannula 10/01/22 07:43 86 20 10/01/22 07:30 89 20 10/01/22 07:30 92 Nasal Cannula 10/01/22 04:00 98.3 F 76 16 117/59 L 98 10/01/22 00:00 97.7 F 95 97 H 115/66 10/01/22 04:00 101 H 10/01/22 02:18 99 20 10/01/22 02:08 91 20 09/30/22 20:40 104 H 09/30/22 20:00 98.9 F 100 14 146/72 H 96 09/30/22 19:57 102 H 20 09/30/22 19:49 97
--- NOTE | 2022-10-01 12:15 | PM.PNNEP ---
Progress Note: A&P Assessment and Plan (1) Hyponatremia: Code(s): E87.1 - Hypo-osmolality and hyponatremia Status: Acute Assessment and Plan: slow improvement noted review of labs suggest acute on chronic evaluation to date: urine electrolytes prerenal SPEP/UPEP and serum/urine osmo pending TSH and cortisol okay CT of head negative CXR results noted (known COPD) no culprit medications s/p 3% saline on admission on salt tabs + lasix improved enought that cleared for surgery from renal perspective follow trend of repeat sodiums (2) Closed left hip fracture: Qualifiers: Encounter type: subsequent encounter Fracture healing: with routine healing Qualified Code(s): S72.002D - Fracture of unspecified part of neck of left femur, subsequent encounter for closed fracture with routine healing Code(s): S72.002A - Fracture of unspecified part of neck of left femur, initial encounter for closed fracture Status: Acute Assessment and Plan: as noted by admission imaging Orthopedics following will need surgical intervention eventually (3) Chronic respiratory failure with hypoxia and hypercapnia: Code(s): J96.11 - Chronic respiratory failure with hypoxia; J96.12 - Chronic respiratory failure with hypercapnia Status: Chronic Assessment and Plan: due to known COPD and CHF chronically on 2L by [place] at baseline complicated by underlying pneumonia on antibiotics PRN diamox given CO2 retention (4) Hypertension: Code(s): I10 - Essential (primary) hypertension Status: Chronic Assessment and Plan: better controlled at this time continue current medications follow trend of hemodynamics (5) Rhabdomyolysis: Code(s): M62.82 - Rhabdomyolysis Status: Acute Assessment and Plan: resolving continue supportive therapy Will continue to follow. Subjective Date/time seen: 10/01/22 12:15 Interval history: Follow-up for acute hyponatremia. Mentation seems stable if not improving at the time of my visit; sodium continues to improved with current therapy/interventions; no apparent distress voiced currently; no other events overnight or earlier this morning; possible surgery today (?) Exam Narrative: General: frail cachectic female in NAD Heart: normal S1 and S2; no rub Lungs: decreased at bases and coarse throoughout Abdomen: soft, nontender, nondistended, positive bowel sounds Extremities: no cyanosis or clubbing; trace edema Skin: no nodules Objective Data Vital Signs Vital Signs: Vital Signs Temp Pulse Pulse Resp BP Pulse Ox O2 Del Method 10/01/22 10:37 98.6 F 78 17 100/51 L 97 10/01/22 08:47 110/50 L 10/01/22 08:00 86 10/01/22 08:00 86 20 92 Nasal Cannula 10/01/22 07:43 86 20 10/01/22 07:30 89 20 10/01/22 07:30 92 Nasal Cannula 10/01/22 04:00 98.3 F 76 16 117/59 L 98 10/01/22 00:00 97.7 F 95 97 H 115/66 10/01/22 04:00 101 H 10/01/22 02:18 99 20 10/01/22 02:08 91 20 09/30/22 20:40 104 H 09/30/22 20:00 98.9 F 100 14 146/72 H 96 09/30/22 19:57 102 H 20 09/30/22 19:49 97 Nasal Cannula 09/30/22 19:49 97 20 09/30/22 16:02 104 H 09/30/22 16:02 104 H 09/30/22 18:32 98.3 F 93 18 117/69 96 09/30/22 14:00 98.1 F 90 18 108/59 L 100 09/30/22 13:28 107 H 20 Intake/Output Intake/Output: Intake & Output 09/28/22 09/29/22 09/30/22 10/01/22 23:59 23:59 23:59 23:59 Intake Total 1119.2 2212.8 1369.2 660 Output Total 2850 1725 650 400 Balance -1730.8 487.8 719.2 260 Meds/Results Medications: Active Medications Generic Name Dose Route Start Last Admin Trade Name Freq PRN Reason Stop Dose Admin Acetaminophen 650 mg 09/30/22 06:24 Acetaminophen 325 Mg Tablet PO Q4H PRN Mild Pain (1
--- NOTE | 2022-10-01 16:32 | PM.PNORT ---
Progress Note: A&P Assessment and Plan (1) Closed left hip fracture: Qualifiers: Encounter type: subsequent encounter Fracture healing: with routine healing Qualified Code(s): S72.002D - Fracture of unspecified part of neck of left femur, subsequent encounter for closed fracture with routine healing Code(s): S72.002A - Fracture of unspecified part of neck of left femur, initial encounter for closed fracture Status: Acute Assessment and Plan: LEFT FEMORAL NECK FRACTURE AND HYPONATREMIA NOW CORRECTED. SHE WILL GO FOR LEFT HIP BIPOLAR TOMORROW. WE SPOKE ABOUT SURGERY AND THE DETAILS. HISTORY, EXAM AND RADIOGRAPHS REVIEWED WITH THE PATIENT. REFERRING PHYSICIAN RECORDS AND IMAGES REVIEWED. CONDITION, NATURE, ETIOLOGY AND COURSE OF NATURAL HISTORY REVIEWED. CONSERVATIVE AND OPERATIVE TREATMENT OPTIONS REVIEWED WELL THE RISKS AND BENEFITS OF EACH. DISCUSSED NONOPERATIVE AND OPERATIVE TREATMENT OPTIONS WITH THE PATIENT. THE PATIENT'S QUESTIONS WERE ANSWERED. THE PATIENT DESIRES OPERATIVE TREATMENT. DISCUSSED __LEFT HIP BIPOLAR HEMIARTHROPLASTY . RISKS OF SURGERY INCLUDING BUT NOT LIMITED TO NEUROVASCULAR DAMAGE, WOUND COMPLICATIONS, BLOOD CLOT, PULMONARY EMBOLUS, STROKE, TN, ANESTHETIC RISKS UP TO AND INCLUDING WERE REVIEWED. CONTINUED PAIN AND POSSIBLE DYSFUNCTION WERE EXPLAINED. NO GUARANTEES WERE OFFERED. THE PATIENT UNDERSTANDS AND WISHES TO PROCEED. Subjective Subjective Date/Time Seen: 10/01/22 16:32 Interval history: MARCO IS AWAKE AND ALERT TODAY SHE IS FOLLOWING ALL COMMANDS. SHE IS OX2. SHE C/O LEFT HIP PAIN Exam Extrem: Other: VSS AFEBRILE, [place] INTACT, LEFT HIP PAINFUL PROM, RIGHT HIP NO PAIN WITH ROM. BACK NON TENDER. UPPER EXTREMITIES FULL MOTION WITH NO PAIN Objective Data Vital Signs Vital Signs: Vital Signs - 24 hr 09/30/22 18:32 09/30/22 19:49 09/30/22 19:49 Temperature 36.8 C Pulse Rate 93 97 Respiratory Rate 18 20 Blood Pressure 117/69 Pulse Oximetry 96 97 Oxygen Delivery Nasal Cannula Oxygen Flow Rate 1 Fraction of Inspired Oxygen 24 09/30/22 19:57 09/30/22 20:00 09/30/22 20:40 Temperature 37.2 C Pulse Rate 102 H 100 104 H Respiratory Rate 20 14 Blood Pressure 146/72 H Pulse Oximetry 96 Oxygen Delivery Oxygen Flow Rate Fraction of Inspired Oxygen 10/01/22 02:08 10/01/22 02:18 10/01/22 04:00 Temperature Pulse Rate 91 99 101 H Respiratory Rate 20 20 Blood Pressure Pulse Oximetry Oxygen Delivery Oxygen Flow Rate Fraction of Inspired Oxygen 10/01/22 00:00 10/01/22 04:00 10/01/22 07:30 Temperature 36.5 C 36.8 C Pulse Rate 95 76 Respiratory Rate 97 H 16 Blood Pressure 115/66 117/59 L Pulse Oximetry 98 92 Oxygen Delivery Nasal Cannula Oxygen Flow Rate 1 Fraction of Inspired Oxygen 10/01/22 07:30 10/01/22 07:43 10/01/22 08:00 Temperature Pulse Rate 89 86 86 Respiratory Rate 20 20 20 Blood Pressure Pulse Oximetry 92 Oxygen Delivery Nasal Cannula Oxygen Flow Rate 1 Fraction of Inspired Oxygen 24 10/01/22 08:00 10/01/22 08:47 10/01/22 10:37 Temperature 37.0 C Pulse Rate 86 78 Respiratory Rate 17 Blood Pressure 110/50 L 100/51 L Pulse Oximetry 97 Oxygen Delivery Oxygen Flow Rate Fraction of Inspired Oxygen 10/01/22 13:34 10/01/22 12:00 10/01/22 13:52 Temperature Pulse Rate 95 77 72 Respiratory Rate 20 20 Blood Pressure Pulse Oximetry Oxygen Delivery Oxygen Flow Rate Fraction of Inspired Oxygen 10/01/22 14:00 10/01/22 16:00 Temperature 37.2 C Pulse Rate 102 H 108 H Respiratory Rate 17 Blood Pressure 94/55 L Pulse Oximetry 96 Oxygen Delivery Oxygen Flow Rate Fraction of Inspired Oxygen Intake/Output Intake/Output: Intake & Output 09/28/22 09/29/22 09/30/22 10/01/22 23:59 23:59 23:59 23:59 Intake Total 1119.2 2212.8 1369.2 766.4 Output Total 2850 1725 650 40
[2022-10-01] MEDS: POTASSIUM CHLORIDE 20 MEQ ER TABLET 40 MEQ PO (16:40)
[2022-10-01 16:57] LABS: Glucose Point of Care 126 mg/dl (65-105)
--- NOTE | 2022-10-01 17:12 | P.PNIM_ITS ---
Progress Note: A&P Assessment and Plan (1) Hyponatremia: Code(s): E87.1 - Hypo-osmolality and hyponatremia Status: Acute Assessment and Plan: Pt is s/p fall patient is found to have hip and pelvis x-ray read as subcapital fracture of the proximal left femoral neck, patient was seen by an orthopedic, will need ORIF once clinically stable, currently patient is not a candidate for surgical intervention, to further evaluate patient had MRI of the brain, which showed chronic small vessel disease no acute finding, patient with hyponatremia most likely 2/2 to alcohol abuse will monitor. continue to watch mental status and sodium levels pt appears more calm today (2) Subcapital fracture of femur: Code(s): S72.019A - Unspecified intracapsular fracture of unspecified femur, initial encounter for closed fracture Status: Acute Assessment and Plan: The patient is in critical condition and is high risk for surgery at this point. Pt seen by orthopedics pt will benefit from LEFT HIP HEMIARTHROPLASTY once sodium levels is better. Continue to monitor sodium levels Pt is on bedrest (3) Chronic respiratory failure with hypoxia and hypercapnia: Code(s): J96.11 - Chronic respiratory failure with hypoxia; J96.12 - Chronic respiratory failure with hypercapnia Status: Acute Assessment and Plan: Continue oxygen at 2 L per nasal cannula. Patient is chronically on oxygen at home. Continue with nebulizer treatment (4) COPD (chronic obstructive pulmonary disease): Code(s): J44.9 - Chronic obstructive pulmonary disease, unspecified Status: Acute Assessment and Plan: Continue with oxygen and nebulizer treatments. (5) CHF (congestive heart failure), NYHA class I: Code(s): I50.9 - Heart failure, unspecified Status: Acute Assessment and Plan: An echo has been ordered. (6) Hypertension: Code(s): I10 - Essential (primary) hypertension Status: Chronic Assessment and Plan: P.r.n. hydralazine. (7) Unresponsive: Code(s): R41.89 - Other symptoms and signs involving cognitive functions and awareness Status: Acute Assessment and Plan: Patient has a white count over 20,000. The patient was empirically started on an IV antibiotic blood cultures are pending. ABGs were performed pH is normal. Brain CT was read as no intracranial hemorrhage mass or acute infarct atrophy and mild chronic white matter changes. Patient could be dehydrated and could be unresponsive because of the hyponatremia. Could also be hypertensive encephalopathy. The patient appears to be cachectic as well. (8) Sepsis: Qualifiers: Sepsis acute organ dysfunction status: unspecified Sepsis type: sepsis due to unspecified organism Qualified Code(s): A41.9 - Sepsis, unspecified organism Code(s): A41.9 - Sepsis, unspecified organism Status: Acute Assessment and Plan: White count is 20.2. improved to 7.3 now Continue with Levaquin, Zosyn and vancomycin. Blood cultures are pending. can dc IV abx once cultures are back Plan 10/01/2022:Patient was found laying down unresponsive call 911 and started CPR. Patient has underlying history of COPD and on home oxygen via nasal cannula also has congestive heart failure and hypertension. Patient was last seen well 6 day s ago by daughter however did have today's newspaper alongside the patient where she was found unresponsive. Patient was obtunded on presentation. Workup revealed WBC count of 20,000 acute respiratory acidosis sodium of 123 and lactic acidosis of 6.6. Hypothermic received
[2022-10-01] MEDS: acetaZOLAMIDE TAB 250 MG TABLET 500 MG PO (18:47)
[2022-10-01 21:18] LABS: Glucose Point of Care 122 mg/dl (65-105)
[2022-10-01 23:12] LABS: Epstein Barr Virus DNA PCR Not Detected (Not Detected); Source Epstein Barr Virus CSF
[2022-10-02] VITALS (29 sets, daily range): BP systolic 102–142; BP diastolic 48–70; PULSE 62–100; RESP 11–19; TEMP 35.9–37; O2SAT 94–100
[2022-10-02 01:24] LABS: Glucose Point of Care 103 mg/dl (65-105)
[2022-10-02] MEDS: IPRATROPIUM BR 0.02% INH SOLN 0.5 MG/2.5 ML VIAL INHALATION ×4 (01:29→20:11)
[2022-10-02] MEDS: LEVALBUTEROL NEB 1.25 MG/3 ML INHALATION ×4 (01:29→20:11)
[2022-10-02 03:10] LABS: Herpes Simplex Type 1 DNA PCR Not Detected (Not Detected); Herpes Simplex Type 2 DNA PCR Not Detected (Not Detected)
[2022-10-02] MEDS: CENTRAL LINE FLUSH 20 ML IV PUSH (05:48)
[2022-10-02] MEDS: CENTRAL LINE FLUSH 10 ML IV PUSH ×3 (05:48→21:20)
[2022-10-02 05:53] LABS: Glucose Point of Care 103 mg/dl (65-105)
[2022-10-02 06:15] LABS: Hematocrit 33.9 % (37.0-47.0); Hemoglobin 10.7 g/dL (12.0-15.0); Mean Corpuscular HGB Conc 31.6 g/dl (32-36); Mean Corpuscular Hemoglobin 32.8 pg (26-34); Mean Platelet Volume 10.3 fl (7.4-10.4); Platelet Count Result 164 k/mm3 (150-375); Red Blood Count 3.26 M/mm3 (4.2-5.4); White Blood Count 6.4 K/mm3 (4.5-10.0)
--- NOTE | 2022-10-02 06:21 | PC.NURSE ---
Pt going down to pre-op via bed. Pt taken with O2 and glasses. Daughter went down with pt to pre-op and informed she would need to get glasses back from pt before going into OR.
[2022-10-02 06:25] LABS: Alanine Aminotransferase 24 U/L (6-35); Albumin Level 2.8 g/dL (3.5-5.1); Alkaline Phosphatase 45 U/L (38-126); Aspartate Amino Transferase 26 U/L (14-36); Bilirubin,Total 0.4 mg/dL (0.2-1.3); Blood Urea Nitrogen 16 mg/dL (7-17); Calcium 7.6 mg/dL (8.4-10.2); Carbon Dioxide > 40 mmol/L (22-30); Chloride 91 mmol/L (98-107); Creatine Kinase 63 U/L (30-135); Estimated CRCL calculation 33 ml/min; Estimated Glomerular Filt Rate > 60; Glucose 90 mg/dL (65-110); Magnesium 1.9 mg/dL (1.6-2.3); Potassium 3.5 mmol/L (3.4-5.0); Sodium 127 mmol/L (137-145)
[2022-10-02] MEDS: LACTATED RINGERS 1,000 ML 30 ML IV CONT (06:25)
[2022-10-02] MEDS: TRANEXAMIC ACID 1,000MG/ISO100 1,000 MG/100 ML BAG 200 MG IVPB (06:55)
[2022-10-02 07:33] LABS: Anion Gap -1 mmol/L (8-16); Blood Urea Nitrogen 15 mg/dL (7-17); Calcium 7.5 mg/dL (8.4-10.2); Carbon Dioxide 39 mmol/L (22-30); Chloride 91 mmol/L (98-107); Estimated CRCL calculation 33 ml/min; Estimated Glomerular Filt Rate > 60; Glucose 102 mg/dL (65-110); Potassium 3.5 mmol/L (3.4-5.0); Sodium 129 mmol/L (137-145)
--- NOTE | 2022-10-02 07:39 | WPDHPUPDATE1 ---
History and Physical Update Update Date/Time: 10/02/22 07:39 History and Physical has been reviewed, including an updated exam of the patient. There are NO changes in the patient's condition. Risks, benefits, and alternatives have been discussed and questions answered. Patient agrees to proceed with procedure.
--- NOTE | 2022-10-02 07:45 | WPDANESEPPF ---
Anes - Initial Pre Proc Eval Procedure: Operation Date: 10/02/22 07:30 Proposed Procedures p Left Bipolar Hip Replacement - Vinny Smith MD Date/Time: 10/02/22 07:45 Surgeon: Vicente Brooks MD Pre Op Diagnosis: Sepsis,Hyponatremia,Left Hip Fx,Unresponsive Patient Data Age: 76 Gender: F Height: 1.52 m Weight: 35.4 kg Last Vital Signs Temp 37.0 C 10/02/22 06:44 Pulse 98 10/02/22 06:44 Resp 16 10/02/22 06:44 BP 125/69 10/02/22 06:44 Pulse Ox 97 10/02/22 06:44 O2 Del Method Nasal Cannula 10/02/22 06:44 O2 Flow Rate 1 10/02/22 06:44 FiO2 24 10/01/22 08:00 Allergies Allergy/AdvReac Type Severity Reaction Status Date / Time No Known Allergies Allergy Unknown Verified 01/17/07 16:38 Home Medications Medication Instructions Recorded Confirmed Type albuterol sulfate 90 mcg/actuation 2 puff inhalation QID PRN 09/26/22 09/26/22 History aerosol inhaler Shortness Of Breath Or Wheezing amlodipine 5 mg tablet 5 mg PO DAILY 09/26/22 09/26/22 History furosemide 20 mg tablet 20 mg PO DAILY PRN Edema 09/26/22 09/26/22 History lisinopril 40 mg tablet 40 mg PO DAILY 09/26/22 09/27/22 History Laboratory Tests 09/27/22 09/27/22 10/01/22 07:02 12:22 08:00 WBC RBC Hgb Hct MCV MCH MCHC RDW Plt Count MPV Sodium Potassium Chloride Carbon Dioxide Anion Gap BUN Creatinine Estim Creat Clear Calc Estimated GFR Glucose POC Capillary Glucose 93 mg/dl (65-105) Serum Osmolality 277 L mOsm/kg (278-305) Calcium Magnesium Total Bilirubin AST ALT Alkaline Phosphatase Total Creatine Kinase Total Protein Albumin Fluid EBV Source Csf CSF EBV DNA (PCR) Not detected (Not Detected) CSF Herpes I DNA (PCR) Not detected (Not Detected) CSF Herpes II DNA (PCR) Not detected (Not Detected) HSV (PCR) Source Csf 10/01/22 10/01/22 10/01/22 11:53 16:54 20:36 WBC RBC Hgb Hct MCV MCH MCHC RDW Plt Count MPV Sodium Potassium Chloride Carbon Dioxide Anion Gap BUN Creatinine Estim Creat Clear Calc Estimated GFR Glucose POC Capillary Glucose 104 mg/dl 126 H mg/dl 122 H mg/dl (65-105) (65-105) (65-105) Serum Osmolality Calcium Magnesium Total Bilirubin AST ALT Alkaline Phosphatase Total Creatine Kinase Total Protein Albumin Fluid EBV Source CSF EBV DNA (PCR) CSF Herpes I DNA (PCR) CSF Herpes II DNA (PCR) HSV (PCR) Source 10/01/22 10/02/22 10/02/22 23:49 05:29 05:47 WBC 6.4 K/mm3 (4.5-10.0) RBC 3.26 L M/mm3 (4.2-5.4) Hgb 10.7 L g/dL (12.0-15.0) Hct 33.9 L % (37.0-47.0) MCV 104.0 H fl (80-100) MCH 32.8 pg (26-34) MCHC 31.6 L g/dl (32-36) RDW 14.0 % (11.5-14.5) Plt Count 164 k/mm3 (150-375) MPV 10.3 fl (7.4-10.4) Sodium 127 L mmol/L (137-145) Potassium 3.5 mmol/L (3.4-5.0) Chloride 91 L mmol/L (98-107) Carbon Dioxide > 40 H mmol/L (22-30) Anion Gap mmol/L (8-16) BUN 16 mg/dL (7-17) Creatinine 0.70 mg/dL (0.7-1.0) Estim Cre
[2022-10-02] MEDS: ceFAZolin 2 GM/D5W 50 ML 2 GM/50 ML BAG IVPB (08:00)
[2022-10-02] MEDS: cefTRIAXone 2 GM/NS 100 ML 2 GM/100 ML BAG IVPB (08:55)
--- NOTE | 2022-10-02 09:44 | SUR.OPER ---
TOTAL URINE YELLOW CLEAR 450ML, EBL 100ML
[2022-10-02 10:41] LABS: Glucose Point of Care 112 mg/dl (65-105)
[2022-10-02 11:49] LABS: Glucose Point of Care 90 mg/dl (65-105)
--- NOTE | 2022-10-02 12:39 | W.PM.PROC2 ---
Procedure Note - Detailed Date of Procedure 10/02/22 Pre-op Diagnosis Sepsis,Hyponatremia,Left Hip Fx,Unresponsive Post-op Diagnosis Same Procedure Performed LEFT HIP HEMIARTHROPLASTY WITH BIPOLAR PROSTHESIS Surgeon Vinny Smith MD Anesthesia General Description of Procedure THE PATIENT WAS TAKEN TO THE OPERATING ROOM IN STABLE CONDITION. HE WAS PLACED IN THE LATERAL DECUBITUS AND THE LEFT LOWER EXTREMITY WAS PREPPED AND DRAPED IN THE STERILE FASHION. INCISION WAS MADE IN THE POSTERIOR LATERAL SIDE OF THE HIP, DOWN TO THE FASCIA LAYER. THE FASCIA WAS INCISED. THE HIP WAS EXPOSED. THE SHORT EXTERNAL ROTATORS WERE EXPOSED AND THERE WAS A LARGE HEMATOMA. THE CAPSULE WAS INCISED EXPOSING THE FRACTURE. THE FEMORAL HEAD WAS REMOVED. IT MEASURED 46 MM. AN OSTEOTOMY WAS MADE TO THE FEMORAL NECK ABOUT 1 CM PROXIMAL TO THE LESSER TROCHANTER. NEXT THE FEMUR WAS PREPARED WITH INITIAL CANAL FINDER THEN SEQUENTIAL REAMING UNTIL A #13 REAMER AND BROACHING TILL A #13 BROACH FIT WELL IN 15 OF ANTE VERSION. A -3 STANDARD OFFSET NECK BIPOLAR TRIAL IN A 45 MM SHELL WAS PLACED. THE SHUCK TEST WAS EXCELLENT AND THE STABILITY IN FLEXION AND ROTATION WAS EXCELLENT. LEG LENGTHS WERE GROSSLY EQUAL. TRIALS WERE REMOVED. AN ECHO FRACTURE STEM #9 PRESS FIT STEM WAS PLACED WITH A STANDARD OFFSET IN 15 DEG OF ANTEVERSION. A -3 BIPOLAR HEAD NECK TRIAL WAS PLACED AGAIN. THE HIP WAS TRIALED AND THE STABILITY WAS EXCELLENT WERE THE LEG LENGTHS AND THE SHUCK TEST. NEXT A BIPOLAR HEAD NECK -3 IMPLANT WITH A 45 MM COBALT CHROME SHELL WAS PLACED AND TRIALED ONCE AGAIN SHOWING EXCELLENT STABILITY AND GROSSLY EQUAL LEG LENGTHS. THE WOUND WAS IRRIGATED WITH STERILE BETADINE AND WATER FOR 3 MIN. THEN WASHED AGAIN. THE CAPSULE AND THE EXTERNAL ROTATORS WERE APPROXIMATED WITH NUMBER 1 VICRYL. THE FASCIA WITH No 2 QUIL AND THE SUB CUTANEOUS LAYER WITH 2-0 ABSORBABLE SUTURE WITH ORLY FOR THE SKIN REPAIR. STERILE DRESSING WAS APPLIED. PATIENT WAS PLACED BACK ON TO THE SUPINE POSITION AND WAS EXTUBATED. Estimated Blood Loss -100.0 Urine Output 100 Drains No Pathology None sent Complications No immediate complications Condition Stable Disposition PACU
[2022-10-02] MEDS: amLODIPine BESYLATE 5 MG TABLET PO (12:44)
[2022-10-02] MEDS: FOLIC ACID 1 MG TABLET PO (12:44)
[2022-10-02] MEDS: FUROSEMIDE 20 MG TABLET PO ×2 (12:44→19:55)
[2022-10-02] MEDS: lisinopriL 20 MG TABLET 40 MG PO (12:44)
[2022-10-02] MEDS: SODIUM CHLORIDE 1 GM TABLET PO ×2 (12:45→19:55)
[2022-10-02] MEDS: ENOXAPARIN 40 MG/0.4 ML SYRINGE SUB-Q (12:45)
[2022-10-02] MEDS: THIAMINE HCL 200 MG/2 ML VIAL 100 MG IV PUSH (12:45)
[2022-10-02] MEDS: HYDROcodone/acetaminophen (*CRX) 7.5-325 MG TABLET 1 TAB PO (12:48)
--- NOTE | 2022-10-02 13:57 | PCOTNOTE ---
Pt to the floor late morning after L hip bipolar hemiarthroplasty. Per RN, pt too groggy to participate. Checked in the PM as well and pt still too groggy and not appropriate for OT eval today. Will continue to follow.
[2022-10-02 14:21] LABS: Cryptococcus Antigen Not Detected (Not Detected); Cryptococcus Specimen Source CSF
--- NOTE | 2022-10-02 14:45 | P.PNNP_ITS ---
Progress Note: A&P Assessment and Plan (1) Hyponatremia: Code(s): E87.1 - Hypo-osmolality and hyponatremia Status: Acute Assessment and Plan: * slow improvement noted * review of labs suggest acute on chronic * evaluation to date: * urine electrolytes prerenal * SPEP/UPEP and serum/urine osmo pending * TSH and cortisol okay * CT of head negative * CXR results noted (known COPD) * no culprit medications * s/p 3% saline on admission * on salt tabs + lasix * improved enought that cleared for surgery from renal perspective * follow trend of repeat sodiums (2) Closed left hip fracture: Qualifiers: Encounter type: subsequent encounter Fracture healing: with routine healing Qualified Code(s): S72.002D - Fracture of unspecified part of neck of left femur, subsequent encounter for closed fracture with routine healing Code(s): S72.002A - Fracture of unspecified part of neck of left femur, initial encounter for closed fracture Status: Acute Assessment and Plan: * as noted by admission imaging * Orthopedics following * s/p left hip hemiarthroplasty with bipolar prosthesis earlier today * pain control * PT/OT as tolerated (3) Chronic respiratory failure with hypoxia and hypercapnia: Code(s): J96.11 - Chronic respiratory failure with hypoxia; J96.12 - Chronic respiratory failure with hypercapnia Status: Chronic Assessment and Plan: * due to known COPD and CHF * chronically on 2L by NC at baseline * complicated by underlying pneumonia * on antibiotics * PRN diamox given CO2 retention (4) Hypertension: Code(s): I10 - Essential (primary) hypertension Status: Chronic Assessment and Plan: * better controlled at this time * continue current medications * follow trend of hemodynamics (5) Rhabdomyolysis: Code(s): M62.82 - Rhabdomyolysis Status: Acute Assessment and Plan: * resolving/resolved * continue supportive therapy Will continue to follow. Subjective Date/time seen: 10/02/22 14:45 Interval history: Follow-up for acute hyponatremia. S/P operative intervention earlier today by Orthopedics and tolerated the procedure reasonably well; mentation seems to be doin better as well (sitter discontinued); sodium relatively stable by recent testing. Exam Narrative: General: frail cachectic female in NAD Heart: normal S1 and S2; no rub Lungs: decreased at bases and coarse throoughout Abdomen: soft, nontender, nondistended, positive bowel sounds Extremities: no cyanosis or clubbing; trace edema Skin: warm and dry Objective Data Vital Signs Vital Signs: Vital Signs Temp Pulse Resp BP Pulse Ox O2 Del Method O2 Flow Rate 10/02/22 14:00 68 18 10/02/22 12:00 68 10/02/22 13:45 66 18 10/02/22 13:10 97.1 F L 66 12 102/48 L 94 10/02/22 12:10 96.6 F L 62 12 117/51 L 100 10/02/22 12:09 100 Nasal Cannula 3 10/02/22 11:40 96.9 F L 66 12 112/53 L 100 10/02/22 11:25 96.6 F L 70 12 106/50 L 100 10/02/22 11:22 69 11 L 103/56 L 100 Nasal Cannula 3 10/02/22 11:07 76 19 112/58 L 100 Nasal Cannula 3 10/02/22 10:52 75 11 L 128/70 100 Nasal Cannula 3 10/02/22 10:37 69 12 116/63 100 Nasal Cannula 3
--- NOTE | 2022-10-02 14:45 | PM.PNNEP ---
Progress Note: A&P Assessment and Plan (1) Hyponatremia: Code(s): E87.1 - Hypo-osmolality and hyponatremia Status: Acute Assessment and Plan: slow improvement noted review of labs suggest acute on chronic evaluation to date: urine electrolytes prerenal SPEP/UPEP and serum/urine osmo pending TSH and cortisol okay CT of head negative CXR results noted (known COPD) no culprit medications s/p 3% saline on admission on salt tabs + lasix improved enought that cleared for surgery from renal perspective follow trend of repeat sodiums (2) Closed left hip fracture: Qualifiers: Encounter type: subsequent encounter Fracture healing: with routine healing Qualified Code(s): S72.002D - Fracture of unspecified part of neck of left femur, subsequent encounter for closed fracture with routine healing Code(s): S72.002A - Fracture of unspecified part of neck of left femur, initial encounter for closed fracture Status: Acute Assessment and Plan: as noted by admission imaging Orthopedics following s/p left hip hemiarthroplasty with bipolar prosthesis earlier today pain control PT/OT as tolerated (3) Chronic respiratory failure with hypoxia and hypercapnia: Code(s): J96.11 - Chronic respiratory failure with hypoxia; J96.12 - Chronic respiratory failure with hypercapnia Status: Chronic Assessment and Plan: due to known COPD and CHF chronically on 2L by NC at baseline complicated by underlying pneumonia on antibiotics PRN diamox given CO2 retention (4) Hypertension: Code(s): I10 - Essential (primary) hypertension Status: Chronic Assessment and Plan: better controlled at this time continue current medications follow trend of hemodynamics (5) Rhabdomyolysis: Code(s): M62.82 - Rhabdomyolysis Status: Acute Assessment and Plan: resolving/resolved continue supportive therapy Will continue to follow. Subjective Date/time seen: 10/02/22 14:45 Interval history: Follow-up for acute hyponatremia. S/P operative intervention earlier today by Orthopedics and tolerated the procedure reasonably well; mentation seems to be doin better as well (sitter discontinued); sodium relatively stable by recent testing. Exam Narrative: General: frail cachectic female in NAD Heart: normal S1 and S2; no rub Lungs: decreased at bases and coarse throoughout Abdomen: soft, nontender, nondistended, positive bowel sounds Extremities: no cyanosis or clubbing; trace edema Skin: warm and dry Objective Data Vital Signs Vital Signs: Vital Signs Temp Pulse Resp BP Pulse Ox O2 Del Method O2 Flow Rate 10/02/22 14:00 68 18 10/02/22 12:00 68 10/02/22 13:45 66 18 10/02/22 13:10 97.1 F L 66 12 102/48 L 94 10/02/22 12:10 96.6 F L 62 12 117/51 L 100 10/02/22 12:09 100 Nasal Cannula 3 10/02/22 11:40 96.9 F L 66 12 112/53 L 100 10/02/22 11:25 96.6 F L 70 12 106/50 L 100 10/02/22 11:22 69 11 L 103/56 L 100 Nasal Cannula 3 10/02/22 11:07 76 19 112/58 L 100 Nasal Cannula 3 10/02/22 10:52 75 11 L 128/70 100 Nasal Cannula 3 10/02/22 10:37 69 12 116/63 100 Nasal Cannula 3 10/02/22 10:22 80 11 L 119/67 100 Simple Face Mask 8 10/02/22 10:07 97.9 F 76 13 142/69 H 100 Simple Face Mask 8 10/02/22 06:44 98.6 F 98 16 125/69 97 Nasal Cannula 1 10/02/22 04:00 97.4 F L 82 14 116/67 98 10/02/22 06:18 16 10/02/22 06:06 87 16 97 Nasal Cannula 1 10/02/22 06:03 86 16 10/02/22 04:00 78 10/01/22 20:22 107 H 16 10/02/22 01:45 100 16 10/02/22 01:32 98 16 10/01/22 21:15 98 Nasal Cannula 1 10/02/22 00:00 89 10/01/22 20:00 94 10/02/22 00:00 97.2 F L 92 16 116/63 98 10/01/22 20:00 100.0 F H 106 H 18 121/64 97
--- NOTE | 2022-10-02 14:49 | PCPTNOTE ---
per OT note, at 1400, pt too groggy to begin therapy.
[2022-10-02 16:23] LABS: Glucose Point of Care 119 mg/dl (65-105)
[2022-10-02] MEDS: FAMOTIDINE 20 MG TABLET PO ×2 (16:31→20:51)
[2022-10-02] MEDS: ceFAZolin 1 GM/NS 50 ML 1 GM/50 ML BAG IVPB ×2 (16:31→23:03)
[2022-10-02 16:55] LABS: VDRL Quantitative CSF Nonreactive (Nonreactive)
--- NOTE | 2022-10-02 16:57 | PM.IMPN ---
Progress Note: A&P Assessment and Plan (1) Hyponatremia: Code(s): E87.1 - Hypo-osmolality and hyponatremia Status: Acute Assessment and Plan: Pt is s/p fall patient is found to have hip and pelvis x-ray read as subcapital fracture of the proximal left femoral neck, patient was seen by an orthopedic, will need ORIF once clinically stable, currently patient is not a candidate for surgical intervention, to further evaluate patient had MRI of the brain, which showed chronic small vessel disease no acute finding, patient with hyponatremia most likely 2/2 to alcohol abuse will monitor. continue to watch mental status and sodium levels pt appears more calm today (2) Subcapital fracture of femur: Code(s): S72.019A - Unspecified intracapsular fracture of unspecified femur, initial encounter for closed fracture Status: Acute Assessment and Plan: The patient is in critical condition and is high risk for surgery at this point. Pt seen by orthopedics pt will benefit from LEFT HIP HEMIARTHROPLASTY once sodium levels is better. Continue to monitor sodium levels Pt is on bedrest (3) Chronic respiratory failure with hypoxia and hypercapnia: Code(s): J96.11 - Chronic respiratory failure with hypoxia; J96.12 - Chronic respiratory failure with hypercapnia Status: Chronic Assessment and Plan: Continue oxygen at 2 L per nasal cannula. Patient is chronically on oxygen at home. Continue with nebulizer treatment (4) COPD (chronic obstructive pulmonary disease): Code(s): J44.9 - Chronic obstructive pulmonary disease, unspecified Status: Acute Assessment and Plan: Continue with oxygen and nebulizer treatments. (5) CHF (congestive heart failure), NYHA class I: Code(s): I50.9 - Heart failure, unspecified Status: Acute Assessment and Plan: An echo has been ordered. (6) Hypertension: Code(s): I10 - Essential (primary) hypertension Status: Chronic Assessment and Plan: P.r.n. hydralazine. (7) Unresponsive: Code(s): R41.89 - Other symptoms and signs involving cognitive functions and awareness Status: Acute Assessment and Plan: Patient has a white count over 20,000. The patient was empirically started on an IV antibiotic blood cultures are pending. ABGs were performed pH is normal. Brain CT was read as no intracranial hemorrhage mass or acute infarct atrophy and mild chronic white matter changes. Patient could be dehydrated and could be unresponsive because of the hyponatremia. Could also be hypertensive encephalopathy. The patient appears to be cachectic as well. (8) Sepsis: Qualifiers: Sepsis acute organ dysfunction status: unspecified Sepsis type: sepsis due to unspecified organism Qualified Code(s): A41.9 - Sepsis, unspecified organism Code(s): A41.9 - Sepsis, unspecified organism Status: Acute Assessment and Plan: White count is 20.2. improved to 7.3 now Continue with Levaquin, Zosyn and vancomycin. Blood cultures are pending. can dc IV abx once cultures are back Plan 10/02/2022:Patient was found laying down unresponsive call 911 and started CPR. Patient has underlying history of COPD and on home oxygen via nasal cannula also has congestive heart failure and hypertension. Patient was last seen well 6 days ago by daughter however did have today's newspaper alongside the patient where she was found unresponsive. Patient was obtunded on presentation. Workup revealed WBC count of 20,000 acute respiratory acidosis sodium of 123 and lactic acidosis of 6.6. Hypothermic received IV fluid resuscitation broad-spectrum antibiotics with vancomycin Levaquin and Zosyn. Hypertonic normal saline was also given for possible unresponsiveness secondary to hyponatremia. CT abdomen pelvis showed left hip fracture for which Orthopedic was consulted. She was admitted to the ICU in the setting on 09/26/2022. Sarah
[2022-10-02 20:51] LABS: Glucose Point of Care 118 mg/dl (65-105)
[2022-10-02] MEDS: DOCUSATE SODIUM LIQ 100 MG/10 ML UDC PO (20:51)
[2022-10-03] VITALS (25 sets, daily range): BP systolic 82–111; BP diastolic 36–56; PULSE 65–109; RESP 12–16; TEMP 36.4–37.8; O2SAT 95–99
--- NOTE | 2022-10-03 01:02 | PC.NURSE ---
MD Campbell informed that pt bp 82/47, tried to get pt to drink water but bp remains low, NS 250ml bolus ordered x1, recheck and report finding to MD Campbell if slow bp continues
[2022-10-03] MEDS: SODIUM CHLORIDE 0.9% IV 250 ML 100 ML IV CONT ×2 (01:24→05:19)
[2022-10-03] MEDS: IPRATROPIUM BR 0.02% INH SOLN 0.5 MG/2.5 ML VIAL INHALATION ×4 (02:35→20:03)
[2022-10-03] MEDS: LEVALBUTEROL NEB 1.25 MG/3 ML INHALATION ×4 (02:35→20:03)
--- NOTE | 2022-10-03 02:55 | PC.NURSE ---
bp corrected currently
--- NOTE | 2022-10-03 04:47 | PC.NURSE ---
bp back down to 95/51 was 111/56 after 25 ml bolus informed MD Campbell.
[2022-10-03] MEDS: CENTRAL LINE FLUSH 10 ML IV PUSH ×3 (04:57→21:03)
[2022-10-03] MEDS: ACETAMINOPHEN 325 MG TABLET 650 MG PO ×2 (05:00→20:11)
[2022-10-03 06:22] LABS: Basophils Percent Auto 0.3 % (0.2-1.2); Eosinophils Percent Auto 0.2 % (0-4.4); Hematocrit 31.5 % (37.0-47.0); Immature Granulocyte Absolute 0.07 K/mm3 (0.00-0.031); Immature Granulocyte Percent A 0.7 % (0-0.5); Lymphocytes Absolute Auto 0.61 K/mm3 (0.9-3.2); Lymphocytes Percent Auto 5.8 % (18.3-44.2); Mean Corpuscular HGB Conc 31.7 g/dl (32-36); Mean Corpuscular Hemoglobin 32.5 pg (26-34); Mean Corpuscular Volume 102.3 fl (80-100); Mean Platelet Volume 9.8 fl (7.4-10.4); Monocytes Absolute Auto 1.3 K/mm3 (0.1-0.6); Monocytes Percent Auto 12.5 % (2.6-8.5); Neutrophils Absolute Auto 8.6 K/mm3 (1.3-6.7); Neutrophils Percent Auto 80.5 % (45.5-73.1); Platelet Count Result 152 k/mm3 (150-375); Red Blood Count 3.08 M/mm3 (4.2-5.4); Red Cell Distribution Width 13.5 % (11.5-14.5); White Blood Count 10.6 K/mm3 (4.5-10.0)
[2022-10-03 06:29] LABS: Alanine Aminotransferase 23 U/L (6-35); Albumin Level 2.6 g/dL (3.5-5.1); Alkaline Phosphatase 39 U/L (38-126); Anion Gap 1 mmol/L (8-16); Aspartate Amino Transferase 30 U/L (14-36); Bilirubin,Total 0.5 mg/dL (0.2-1.3); Blood Urea Nitrogen 13 mg/dL (7-17); Calcium 7.6 mg/dL (8.4-10.2); Carbon Dioxide 36 mmol/L (22-30); Chloride 85 mmol/L (98-107); Estimated CRCL calculation 35 ml/min; Estimated Glomerular Filt Rate > 60; Glucose 121 mg/dL (65-110); Magnesium 1.7 mg/dL (1.6-2.3); Potassium 3.2 mmol/L (3.4-5.0); Sodium 122 mmol/L (137-145)
[2022-10-03] MEDS: ceFAZolin 1 GM/NS 50 ML 1 GM/50 ML BAG IVPB (08:03)
[2022-10-03 08:39] LABS: Glucose Point of Care 97 mg/dl (65-105)
[2022-10-03] MEDS: amLODIPine BESYLATE 5 MG TABLET PO (09:16)
[2022-10-03] MEDS: SENNA/DOCUSATE SODIUM TABLET 2 TAB PO ×2 (09:17→16:34)
[2022-10-03] MEDS: ENOXAPARIN 40 MG/0.4 ML SYRINGE SUB-Q (09:17)
[2022-10-03] MEDS: FUROSEMIDE 20 MG TABLET PO (09:18)
[2022-10-03] MEDS: SODIUM CHLORIDE 1 GM TABLET PO ×2 (09:19→16:35)
[2022-10-03] MEDS: polyethylene glycoL 3350 17 GM POWD.PACK PO (09:19)
[2022-10-03] MEDS: FOLIC ACID 1 MG TABLET PO (09:19)
[2022-10-03] MEDS: lisinopriL 20 MG TABLET 40 MG PO (09:19)
[2022-10-03] MEDS: THIAMINE HCL 200 MG/2 ML VIAL 100 MG IV PUSH (09:25)
[2022-10-03] MEDS: cefTRIAXone 2 GM/NS 100 ML 2 GM/100 ML BAG IVPB (11:05)
[2022-10-03 11:24] LABS: Glucose Point of Care 123 mg/dl (65-105)
--- NOTE | 2022-10-03 11:28 | PM.PNNEP ---
Progress Note: A&P Assessment and Plan (1) Hyponatremia: Code(s): E87.1 - Hypo-osmolality and hyponatremia Status: Acute Assessment and Plan: worse today suspect secondary to normal saline fluid boluses overnight review of labs suggest acute on chronic evaluation to date: urine electrolytes prerenal SPEP/UPEP and serum/urine osmo pending TSH and cortisol okay CT of head negative CXR results noted (known COPD) no culprit medications multifactorial etiology - COPD, CHF + need for diuretics, recent pain issues/pain medications, and pneumonia s/p 3% saline on admission on salt tabs + lasix (but likely need to hold lasix given hypotension) follow trend of repeat sodiums (2) Closed left hip fracture: Qualifiers: Encounter type: subsequent encounter Fracture healing: with routine healing Qualified Code(s): S72.002D - Fracture of unspecified part of neck of left femur, subsequent encounter for closed fracture with routine healing Code(s): S72.002A - Fracture of unspecified part of neck of left femur, initial encounter for closed fracture Status: Acute Assessment and Plan: as noted by admission imaging Orthopedics following s/p left hip hemiarthroplasty with bipolar prosthesis (10/02/22) pain control PT/OT as tolerated (3) Chronic respiratory failure with hypoxia and hypercapnia: Code(s): J96.11 - Chronic respiratory failure with hypoxia; J96.12 - Chronic respiratory failure with hypercapnia Status: Chronic Assessment and Plan: due to known COPD and CHF chronically on 2L by NC at baseline complicated by underlying pneumonia on antibiotics PRN diamox given CO2 retention (4) Hypertension: Code(s): I10 - Essential (primary) hypertension Status: Chronic Assessment and Plan: better controlled at this time continue current medications follow trend of hemodynamics Will continue to follow. Subjective Date/time seen: 10/03/22 11:28 Interval history: Follow-up for acute hyponatremia. Noted issues with hypotension yesterday evening/overnight requiring several normal saline IVF fluid boluses and discontinuation of BP medications and diuretics; sodium a bit lower today by recent labs likely secondary to these interventions. Exam Narrative: General: frail cachectic female in NAD Heart: normal S1 and S2; no rub Lungs: decreased at bases and coarse throughout Abdomen: soft, nontender, nondistended, positive bowel sounds Extremities: no cyanosis or clubbing; trace edema Skin: warm and intact Objective Data Vital Signs Vital Signs: Vital Signs Temp Pulse Resp BP Pulse Ox O2 Del Method O2 Flow Rate 10/03/22 10:15 98.6 F 90 14 98 10/03/22 08:00 95 16 96 Nasal Cannula 3 10/03/22 08:00 95 10/03/22 10:31 88/36 L 10/03/22 08:40 Nasal Cannula 2 10/03/22 07:54 96 Nasal Cannula 2 10/03/22 07:50 75 16 10/03/22 05:10 97.8 F 74 12 95/51 L 96 10/03/22 04:00 77 10/03/22 02:55 97.8 F 78 12 111/56 L 99 10/03/22 02:45 66 16 10/03/22 02:36 65 15 10/03/22 00:00 74 10/03/22 01:04 97.6 F 68 13 82/47 L 98 10/02/22 20:00 99 Nasal Cannula 3 10/02/22 20:00 75 10/02/22 21:05 98.0 F 73 14 107/51 L 99 10/02/22 20:30 68 18 10/02/22 20:17 96 Nasal Cannula 2 10/02/22 20:11 66 18 10/02/22 17:10 97.6 F 72 13 113/56 L 97 10/02/22 16:00 89 10/02/22 14:00 68 18 10/02/22 12:00 68 10/02/22 13:45 66 18 10/02/22 13:10 97.1 F L 66 12 102/48 L 94 10/02/22 12:10 96.6 F L 62 12 117/51 L 100 10/02/22 12:09 100 Nasal Cannula 3 Intake/Output Intake/Output: Intake & Output 09/30/22 10/01/22 10/02/22 10/03/22 23:59 23:59 23:59 23:59 Intake Total 1369.2 1299.2 1896.4 1580 Output Total 650 500 118
--- NOTE | 2022-10-03 11:28 | P.PNNP_ITS ---
Progress Note: A&P Assessment and Plan (1) Hyponatremia: Code(s): E87.1 - Hypo-osmolality and hyponatremia Status: Acute Assessment and Plan: * worse today * suspect secondary to normal saline fluid boluses overnight * review of labs suggest acute on chronic * evaluation to date: * urine electrolytes prerenal * SPEP/UPEP and serum/urine osmo pending * TSH and cortisol okay * CT of head negative * CXR results noted (known COPD) * no culprit medications * multifactorial etiology - COPD, CHF + need for diuretics, recent pain issues/pain medications, and pneumonia * s/p 3% saline on admission * on salt tabs + lasix (but likely need to hold lasix given hypotension) * follow trend of repeat sodiums (2) Closed left hip fracture: Qualifiers: Encounter type: subsequent encounter Fracture healing: with routine healing Qualified Code(s): S72.002D - Fracture of unspecified part of neck of left femur, subsequent encounter for closed fracture with routine healing Code(s): S72.002A - Fracture of unspecified part of neck of left femur, initial encounter for closed fracture Status: Acute Assessment and Plan: * as noted by admission imaging * Orthopedics following * s/p left hip hemiarthroplasty with bipolar prosthesis (10/02/22) * pain control * PT/OT as tolerated (3) Chronic respiratory failure with hypoxia and hypercapnia: Code(s): J96.11 - Chronic respiratory failure with hypoxia; J96.12 - Chronic respiratory failure with hypercapnia Status: Chronic Assessment and Plan: * due to known COPD and CHF * chronically on 2L by NC at baseline * complicated by underlying pneumonia * on antibiotics * PRN diamox given CO2 retention (4) Hypertension: Code(s): I10 - Essential (primary) hypertension Status: Chronic Assessment and Plan: * better controlled at this time * continue current medications * follow trend of hemodynamics Will continue to follow. Subjective Date/time seen: 10/03/22 11:28 Interval history: Follow-up for acute hyponatremia. Noted issues with hypotension yesterday evening/overnight requiring several normal saline IVF fluid boluses and discontinuation of BP medications and d iuretics; sodium a bit lower today by recent labs likely secondary to these interventions. Exam Narrative: General: frail cachectic female in NAD Heart: normal S1 and S2; no rub Lungs: decreased at bases and coarse throughout Abdomen: soft, nontender, nondistended, positive bowel sounds Extremities: no cyanosis or clubbing; trace edema Skin: warm and intact Objective Data Vital Signs Vital Signs: Vital Signs Temp Pulse Resp BP Pulse Ox O2 Del Method O2 Flow Rate 10/03/22 10:15 98.6 F 90 14 98 10/03/22 08:00 95 16 96 Nasal Cannula 3 10/03/22 08:00 95 10/03/22 10:31 88/36 L 10/03/22 08:40 Nasal Cannula 2 10/03/22 07:54 96 Nasal Cannula 2 10/03/22 07:50 75 16 10/03/22 05:10 97.8 F 74 12 95/51 L 96 10/03/22 04:00 77 10/03/22 02:55 97.8 F 78 12 111/56 L 99 10/03/22 02:45 66 16 10/03/22 02:36 65 15 10/03/22 00:00 74 10/03/22 01:04 97.6 F 68 13 82/47 L 98 10/02/22 20:00 99 [place]
[2022-10-03] MEDS: SODIUM CHLORIDE 0.9% IV 500 ML IV CONT (11:33)
[2022-10-03 12:25] LABS: Sodium 124 mmol/L (137-145)
--- NOTE | 2022-10-03 14:12 | PM.IMPN ---
Progress Note: A&P Assessment and Plan (1) Hyponatremia: Code(s): E87.1 - Hypo-osmolality and hyponatremia Status: Acute (2) Subcapital fracture of femur: Code(s): S72.019A - Unspecified intracapsular fracture of unspecified femur, initial encounter for closed fracture Status: Acute (3) Chronic respiratory failure with hypoxia and hypercapnia: Code(s): J96.11 - Chronic respiratory failure with hypoxia; J96.12 - Chronic respiratory failure with hypercapnia Status: Chronic (4) COPD (chronic obstructive pulmonary disease): Code(s): J44.9 - Chronic obstructive pulmonary disease, unspecified Status: Acute (5) CHF (congestive heart failure), NYHA class I: Code(s): I50.9 - Heart failure, unspecified Status: Acute (6) Hypertension: Code(s): I10 - Essential (primary) hypertension Status: Chronic (7) Unresponsive: Code(s): R41.89 - Other symptoms and signs involving cognitive functions and awareness Status: Acute (8) Sepsis: Qualifiers: Sepsis acute organ dysfunction status: unspecified Sepsis type: sepsis due to unspecified organism Qualified Code(s): A41.9 - Sepsis, unspecified organism Code(s): A41.9 - Sepsis, unspecified organism Status: Acute Plan 10/03/2022:Patient was found laying down unresponsive call 911 and started CPR. Patient has underlying history of COPD and on home oxygen via nasal cannula also has congestive heart failure and hypertension. Patient was last seen well 6 days ago by daughter however did have today's newspaper alongside the patient where she was found unresponsive. Patient was obtunded on presentation. Workup revealed WBC count of 20,000 acute respiratory acidosis sodium of 123 and lactic acidosis of 6.6. Hypothermic received IV fluid resuscitation broad-spectrum antibiotics with vancomycin Levaquin and Zosyn. Hypertonic normal saline was also given for possible unresponsiveness secondary to hyponatremia. CT abdomen pelvis showed left hip fracture for which Orthopedic was consulted. She was admitted to the ICU in the setting on 09/26/2022. She was suspected to have sepsis and was placed on broad-spectrum antibiotics with altered mental status rule out meningitis encephalitis was planned and lumbar puncture was done. Neurology was also consulted brain MRI was performed initial CSF studies is clear does not show infection. Vancomycin ampicillin was discontinued continued on Rocephin and acyclovir. HSV PCR came back negative will stop acyclovir. For hyponatremia she was treated with 3% saline with subsequent improvement of her sodium level. Orthopedic on board and planning to do surgery on her left hip. Status post left hip arthroplasty done 10/02/2022. She also had mild episode of rhabdomyolysis. Chest x-ray with worsening changes of edema/bronchiolitis in the left lower lung overall background of more diffuse worsening mild interstitial edema 09/30/2022. DVT prophylaxis with Lovenox. Remains on ceftriaxone IV will plan to continue 7-10 days course for underlying pneumonia. Start date 09/27/2022. Patient on Lasix diuresis for mild pulmonary edema. will hold this given hypotension this a.m. also hold amlodipine lisinopril and Lasix. Will give normal saline fluid bolus. Monitor blood pressure. Hyponatremia has worsened down to 122 today. Subjective Date/time seen: 10/03/22 14:12 Interval history: Patient was found laying down unresponsive call 911 and started CPR. Patient has underlying history of COPD and on home oxygen via nasal cannula also has congestive heart failure and hypertension. Patient was last seen well 6 days ago by daughter however did have today's newspaper alongside the patient where she was found unresponsive. Patient was obtunded on presentation. Workup revealed WBC count of 20,000 acute respiratory acidosis sodium of 123 and lactic acidosis of 6.6. Hypothermic received IV flu
[2022-10-03] MEDS: SODIUM CHLORIDE 0.9% IV 500 ML (14:25)
--- NOTE | 2022-10-03 16:21 | WPDANESPN ---
Anes - Prog Note Post-Op Date/Time: 10/03/22 16:21 Cardiovascular status: normal Respiratory status: normal Airway patency: baseline Mental status: baseline Post-Op hydration status: normal Vital Signs: Last Vital Signs Temp 100.0 F H 10/03/22 14:30 Pulse 101 H 10/03/22 16:00 Resp 16 10/03/22 14:45 BP 108/56 L 10/03/22 13:10 Pulse Ox 95 10/03/22 14:30 O2 Del Method Nasal Cannula 10/03/22 08:40 O2 Flow Rate 2 10/03/22 08:40 FiO2 24 10/03/22 08:00 Pain Score (VAS): 0 I/O: Intake & Output 10/03/22 10/03/22 10/03/22 07:59 15:59 23:59 Intake Total 1340 240 Output Total 900 Balance 440 240 Laboratory Tests 10/03/22 06:13 10/03/22 12:09 09/27/22 10/02/22 10/02/22 12:22 16:16 19:49 WBC RBC Hgb Hct MCV MCH MCHC RDW Plt Count MPV Immature Gran % (Auto) Neut % (Auto) Lymph % (Auto) [place] % (Auto) Eos % (Auto) Baso % (Auto) Lymph # (Auto) [place] # (Auto) Eos # (Auto) Baso # (Auto) Abs Immat Gran (auto) Absolute Neuts (auto) Absolute Nucleated RBC Nucleated RBC % Sodium Potassium Chloride Carbon Dioxide Anion Gap BUN Creatinine Estim Creat Clear Calc Estimated GFR Glucose POC Capillary Glucose 119 H 118 H Calcium Magnesium Total Bilirubin AST ALT Alkaline Phosphatase Total Protein Albumin CSF VDRL Nonreactive 10/03/22 10/03/22 10/03/22 06:13 08:19 11:22 WBC 10.6 H RBC 3.08 L Hgb 10.0 L Hct 31.5 L MCV 102.3 H MCH 32.5 MCHC 31.7 L RDW 13.5 Plt Count 152 MPV 9.8 Immature Gran % (Auto) 0.7 H Neut % (Auto) 80.5 H Lymph % (Auto) 5.8 L [place] % (Auto) 12.5 H Eos % (Auto) 0.2 Baso % (Auto) 0.3 Lymph # (Auto) 0.61 L [place] # (Auto) 1.3 H Eos # (Auto) 0.0 Baso # (Auto) 0.0 Abs Immat Gran (auto) 0.07 H Absolute Neuts (auto) 8.6 H Absolute Nucleated RBC 0.0 Nucleated RBC % 0.0 Sodium 122 L Potassium 3.2 L Chloride 85 L Carbon Dioxide 36 H Anion Gap 1 L BUN 13 Creatinine 0.70 Estim Creat Clear Calc 35 Estimated GFR > 60 Glucose 121 H POC Capillary Glucose 97 123 H Calcium 7.6 L Magnesium 1.7 Total Bilirubin 0.5 AST 30 ALT 23 Alkaline Phosphatase 39 Total Protein 5.0 L Albumin 2.6 L CSF VDRL 10/03/22 12:09 WBC RBC Hgb Hct MCV MCH MCHC RDW Plt Count MPV Immature Gran % (Auto) Neut % (Auto) Lymph % (Auto) [place] % (Auto) Eos % (Auto) Baso % (Auto) Lymph # (Auto) [place] # (Auto) Eos # (Auto) Baso # (Auto) Abs Immat Gran (auto) Absolute Neuts (auto) Absolute Nucleated RBC Nucleated RBC % Sodium 124 L Potassium Chloride Carbon Dioxide Anion Gap BUN Creatinine Estim Creat Clear Calc Estimated GFR Glucose POC Capillary Glucose Calcium Magnesium Total Bilirubin AST ALT Alkaline Phosphatase Total Protein Albumin CSF VDRL Post-procedural complaints: none Patient Feedback: Patient satisfied with anesthetic care.
[2022-10-03] MEDS: FAMOTIDINE 20 MG TABLET PO ×2 (16:34→20:11)
[2022-10-03 17:41] LABS: Glucose Point of Care 140 mg/dl (65-105)
[2022-10-03] MEDS: DOCUSATE SODIUM LIQ 100 MG/10 ML UDC PO (20:11)
[2022-10-03 20:37] LABS: Glucose Point of Care 129 mg/dl (65-105)
[2022-10-04] VITALS (21 sets, daily range): BP systolic 111–123; BP diastolic 53–57; PULSE 76–95; RESP 12–18; TEMP 36.7–37.5; O2SAT 93–99
[2022-10-04] MEDS: LEVALBUTEROL NEB 1.25 MG/3 ML INHALATION ×4 (02:38→19:52)
[2022-10-04] MEDS: IPRATROPIUM BR 0.02% INH SOLN 0.5 MG/2.5 ML VIAL INHALATION ×4 (02:38→19:52)
[2022-10-04] MEDS: ACETAMINOPHEN 325 MG TABLET 650 MG PO (04:21)
[2022-10-04] MEDS: CENTRAL LINE FLUSH 10 ML IV PUSH ×3 (05:18→21:23)
[2022-10-04 06:44] LABS: Basophils Percent Auto 0.1 % (0.2-1.2); Eosinophils Absolute Auto 0.1 K/mm3 (0-0.3); Eosinophils Percent Auto 0.9 % (0-4.4); Hematocrit 28.4 % (37.0-47.0); Hemoglobin 9.2 g/dL (12.0-15.0); Immature Granulocyte Absolute 0.06 K/mm3 (0.00-0.031); Immature Granulocyte Percent A 0.8 % (0-0.5); Lymphocytes Absolute Auto 0.57 K/mm3 (0.9-3.2); Lymphocytes Percent Auto 7.6 % (18.3-44.2); Mean Corpuscular HGB Conc 32.4 g/dl (32-36); Mean Corpuscular Hemoglobin 32.4 pg (26-34); Mean Platelet Volume 9.8 fl (7.4-10.4); Monocytes Percent Auto 12.8 % (2.6-8.5); Neutrophils Absolute Auto 5.8 K/mm3 (1.3-6.7); Neutrophils Percent Auto 77.8 % (45.5-73.1); Platelet Count Result 172 k/mm3 (150-375); Red Blood Count 2.84 M/mm3 (4.2-5.4); Red Cell Distribution Width 13.2 % (11.5-14.5); White Blood Count 7.5 K/mm3 (4.5-10.0)
[2022-10-04 07:15] LABS: Alanine Aminotransferase 17 U/L (6-35); Albumin Level 2.5 g/dL (3.5-5.1); Alkaline Phosphatase 45 U/L (38-126); Aspartate Amino Transferase 25 U/L (14-36); Bilirubin,Total 0.5 mg/dL (0.2-1.3); Blood Urea Nitrogen 17 mg/dL (7-17); Calcium 7.7 mg/dL (8.4-10.2); Carbon Dioxide > 40 mmol/L (22-30); Chloride 87 mmol/L (98-107); Estimated CRCL calculation 40 ml/min; Estimated Glomerular Filt Rate > 60; Glucose 87 mg/dL (65-110); Magnesium 1.9 mg/dL (1.6-2.3); Potassium 3.4 mmol/L (3.4-5.0); Sodium 126 mmol/L (137-145)
[2022-10-04 07:33] LABS: Glucose Point of Care 92 mg/dl (65-105)
[2022-10-04] MEDS: FOLIC ACID 1 MG TABLET PO (08:44)
[2022-10-04] MEDS: SENNA/DOCUSATE SODIUM TABLET 2 TAB PO ×2 (08:44→18:06)
[2022-10-04] MEDS: ENOXAPARIN 40 MG/0.4 ML SYRINGE SUB-Q (08:44)
[2022-10-04] MEDS: SODIUM CHLORIDE 1 GM TABLET PO ×2 (08:44→18:06)
[2022-10-04] MEDS: polyethylene glycoL 3350 17 GM POWD.PACK PO ×2 (08:44→11:04)
[2022-10-04] MEDS: DOCUSATE SODIUM LIQ 100 MG/10 ML UDC PO ×2 (08:44→20:05)
[2022-10-04] MEDS: cefTRIAXone 2 GM/NS 100 ML 2 GM/100 ML BAG IVPB (08:47)
--- NOTE | 2022-10-04 09:36 | PM.PNORT ---
Progress Note: A&P Assessment and Plan (1) Subcapital fracture of femur: Code(s): S72.019A - Unspecified intracapsular fracture of unspecified femur, initial encounter for closed fracture Status: Acute (2) History of partial replacement of left hip joint using bipolar prosthesis: Code(s): Z96.642 - Presence of left artificial hip joint Status: Acute Plan Pain well controlled. Hypotension resolved. Hemoglobin stable. Therapy recommends rehab/ fdc care. I agree. Good rehab potential. Subjective Subjective Date/Time Seen: 10/04/22 09:36 Principal diagnosis: Left hip femoral neck fracture Interval history: S/p bipolar hemiarthroplasty. Pain well controlled. Making slow but steady progress with therapy. Exam Narrative: Alert. Appears comfortable in the chair. Working with O.T. Dressing with scant drainage. Minimal swelling. Anterior tibialis intact. DP pulse palpable. Calves non tender. No edema. Objective Data Vital Signs Vital Signs: Vital Signs - 24 hr 10/03/22 10:31 10/03/22 10:15 10/03/22 13:10 Temperature 37.0 C Pulse Rate 90 Respiratory Rate 14 Blood Pressure 88/36 L 108/56 L Pulse Oximetry 98 Oxygen Delivery Oxygen Flow Rate 10/03/22 14:45 10/03/22 12:00 10/03/22 14:30 Temperature 37.8 C H Pulse Rate 76 74 101 H Respiratory Rate 16 14 Blood Pressure Pulse Oximetry 95 Oxygen Delivery Oxygen Flow Rate 10/03/22 16:00 10/03/22 20:08 10/03/22 20:08 Temperature Pulse Rate 101 H 88 Respiratory Rate 16 Blood Pressure Pulse Oximetry 98 Oxygen Delivery Nasal Cannula Oxygen Flow Rate 2 10/03/22 20:11 10/03/22 20:00 10/03/22 21:03 Temperature 37.4 C 37.1 C Pulse Rate Respiratory Rate Blood Pressure Pulse Oximetry 98 Oxygen Delivery Nasal Cannula Oxygen Flow Rate 3 10/03/22 21:30 10/03/22 22:43 10/04/22 00:00 Temperature 37.4 C Pulse Rate 88 109 H 88 Respiratory Rate 14 Blood Pressure 108/54 L Pulse Oximetry 98 Oxygen Delivery Oxygen Flow Rate 10/03/22 20:20 10/04/22 02:41 10/04/22 04:00 Temperature Pulse Rate 86 91 86 Respiratory Rate 16 16 Blood Pressure Pulse Oximetry Oxygen Delivery Oxygen Flow Rate 10/04/22 04:21 10/04/22 02:55 10/04/22 05:17 Temperature 37.5 C 37.2 C Pulse Rate 90 Respiratory Rate 16 Blood Pressure Pulse Oximetry Oxygen Delivery Oxygen Flow Rate 10/04/22 05:51 10/04/22 08:04 10/04/22 08:06 Temperature 37.5 C Pulse Rate 85 89 Respiratory Rate 12 16 Blood Pressure 116/53 L Pulse Oximetry 99 98 Oxygen Delivery Nasal Cannula Oxygen Flow Rate 2 10/04/22 08:14 Temperature Pulse Rate 88 Respiratory Rate 16 Blood Pressure Pulse Oximetry Oxygen Delivery Oxygen Flow Rate Intake/Output Intake/Output: Intake & Output 10/01/22 10/02/22 10/03/22 10/04/22 23:59 23:59 23:59 23:59 Intake Total 1299.2 1896.4 2140 620 Output Total 500 1180 1500 200 Balance 799.2 716.4 640 420 Meds/Results Medications: Active Medications Generic Name Dose Route Start Last Admin Trade Name Freq PRN Reason Stop Dose Admin Acetaminophen 650 mg 10/02/22 11:25 10/04/22 04:21 Acetaminophen 325 Mg Tablet PO 650 mg Q6H PRN Administration Mild Pain (1-3) or Fever Hydrocodone Bitart/Acetaminophen 1 tab 10/02/22 11:25 10/02/22 12:48 Hydrocodone/Acetaminophen (*Crx) 7.5-325 Mg Tablet PO 1 tab Q3H PRN Administration Pain Rated 4-6 Hydrocodone Bitart/Acetaminophen 2 tab 10/02/22 11:25 Hydrocodone/Acetaminophen (*Crx) 7.5-325 Mg Tablet PO Q6H PRN Pain Rated 7-10 Albuterol 2 puff 09/29/22 09:52 Albuterol Sulfate (*Sp) Aerosol 1 Puff INHALATION QID PRN Shortness Of Breath Or Wheezing Amlodipine Besylate 5 mg 09/30/22 09:00 10/03/22 09:16 Amlodipine Besylate 5 Mg Tablet PO 5 mg DAILY LIVIER Administration Bisacodyl
[2022-10-04] MEDS: THIAMINE HCL 200 MG/2 ML VIAL 100 MG IV PUSH (11:04)
[2022-10-04 11:32] LABS: Glucose Point of Care 147 mg/dl (65-105)
--- NOTE | 2022-10-04 12:01 | PM.PNNEP ---
Progress Note: A&P Assessment and Plan (1) Hyponatremia: Code(s): E87.1 - Hypo-osmolality and hyponatremia Status: Acute Assessment and Plan: slow improvement suspect drop in sodium on 10/03/22 secondary to multiple normal saline fluid boluses overnight review of labs suggest acute on chronic evaluation to date: urine electrolytes prerenal SPEP/UPEP and serum/urine osmo pending TSH and cortisol okay CT of head negative CXR results noted (known COPD) no culprit medications multifactorial etiology - COPD, CHF + need for diuretics, recent pain issues/pain medications, and pneumonia s/p 3% saline on admission on salt tabs (holding lasix given hypotension) resume lasix when able given issues with CHF and to help improve sodium follow trend of repeat sodiums (2) Closed left hip fracture: Qualifiers: Encounter type: subsequent encounter Fracture healing: with routine healing Qualified Code(s): S72.002D - Fracture of unspecified part of neck of left femur, subsequent encounter for closed fracture with routine healing Code(s): S72.002A - Fracture of unspecified part of neck of left femur, initial encounter for closed fracture Status: Acute Assessment and Plan: as noted by admission imaging Orthopedics following s/p left hip hemiarthroplasty with bipolar prosthesis (10/02/22) pain control PT/OT as tolerated (3) Chronic respiratory failure with hypoxia and hypercapnia: Code(s): J96.11 - Chronic respiratory failure with hypoxia; J96.12 - Chronic respiratory failure with hypercapnia Status: Chronic Assessment and Plan: due to known COPD and CHF chronically on 2L by NC at baseline complicated by underlying pneumonia on antibiotics PRN diamox given CO2 retention (4) Hypertension: Code(s): I10 - Essential (primary) hypertension Status: Chronic Assessment and Plan: better controlled at this time continue current medications follow trend of hemodynamics Will continue to follow. Subjective Date/time seen: 10/04/22 12:01 Interval history: Follow-up for acute hyponatremia. Sodium doing better in comparison to labs yesterday morning; blood pressure doing better with holding BP medications and lasix at this time; no apparent distress noted at the time of my visit; no issues overnight or earlier this morning Exam Narrative: General: frail cachectic female in NAD Heart: normal S1 and S2; no rub Lungs: decreased at bases and coarse throughout Abdomen: soft, nontender, nondistended, positive bowel sounds Extremities: no cyanosis or clubbing; trace edema Skin: no rash Objective Data Vital Signs Vital Signs: Vital Signs Temp Pulse Resp BP Pulse Ox O2 Del Method O2 Flow Rate 10/04/22 12:00 98.1 F 95 14 111/57 L 98 10/04/22 08:14 88 16 10/04/22 08:06 98 Nasal Cannula 2 10/04/22 08:04 89 16 10/04/22 05:51 99.5 F 85 12 116/53 L 99 10/04/22 05:17 98.9 F 10/04/22 02:55 90 16 10/04/22 04:21 99.5 F 10/04/22 04:00 86 10/04/22 02:41 91 16 10/03/22 20:20 86 16 10/04/22 00:00 88 10/03/22 22:43 109 H 10/03/22 21:30 99.3 F 88 14 108/54 L 98 10/03/22 21:03 98.8 F 10/03/22 20:00 98 Nasal Cannula 3 10/03/22 20:11 99.3 F 10/03/22 20:08 88 16 10/03/22 20:08 98 Nasal Cannula 2 10/03/22 16:00 101 H Intake/Output Intake/Output: Intake & Output 10/01/22 10/02/22 10/03/22 10/04/22 23:59 23:59 23:59 23:59 Intake Total 1299.2 1896.4 2140 860 Output Total 500 1180 1500 200 Balance 799.2 716.4 640 660 Meds/Results Medications: Active Medications Generic Name Dose Route Start Last Admin Trade Name Freq PRN Reason Stop Dose Admin Acetaminophen 650 mg 10/02/22 11:25 10/04/22 04:21 Acetaminophen 325 Mg Tablet PO 650 mg
--- NOTE | 2022-10-04 12:01 | P.PNNP_ITS ---
Progress Note: A&P Assessment and Plan (1) Hyponatremia: Code(s): E87.1 - Hypo-osmolality and hyponatremia Status: Acute Assessment and Plan: * slow improvement * suspect drop in sodium on 10/03/22 secondary to multiple normal saline fluid boluses overnight * review of labs suggest acute on chronic * evaluation to date: * urine electrolytes prerenal * SPEP/UPEP and serum/urine osmo pending * TSH and cortisol okay * CT of head negative * CXR results noted (known COPD) * no culprit medications * multifactorial etiology - COPD, CHF + need for diuretics, recent pain issues/pain medications, and pneumonia * s/p 3% saline on admission * on salt tabs (holding lasix given hypotension) * resume lasix when able given issues with CHF and to help improve sodium * follow trend of repeat sodiums (2) Closed left hip fracture: Qualifiers: Encounter type: subsequent encounter Fracture healing: with routine healing Qualified Code(s): S72.002D - Fracture of unspecified part of neck of left femur, subsequent encounter for closed fracture with routine healing Code(s): S72.002A - Fracture of unspecified part of neck of left femur, initial encounter for closed fracture Status: Acute Assessment and Plan: * as noted by admission imaging * Orthopedics following * s/p left hip hemiarthroplasty with bipolar prosthesis (10/02/22) * pain control * PT/OT as tolerated (3) Chronic respiratory failure with hypoxia and hypercapnia: Code(s): J96.11 - Chronic respiratory failure with hypoxia; J96.12 - Chronic respiratory failure with hypercapnia Status: Chronic Assessment and Plan: * due to known COPD and CHF * chronically on 2L by NC at baseline * complicated by underlying pneumonia * on antibiotics * PRN diamox given CO2 retention (4) Hypertension: Code(s): I10 - Essential (primary) hypertension Status: Chronic Assessment and Plan: * better controlled at this time * continue current medications * follow trend of hemodynamics Will continue to follow. Subjective Date/time seen: 10/04/22 12:01 Interval history: Follow-up for acute hyponatremia. Sodium doing better in comparison to labs yesterday morning; blood pressure doing better with holding BP medications and lasix at this time; no apparent distress noted at the time of my visit; no issues overnight or earlier this morning Exam Narrative: General: frail cachectic female in NAD Heart: normal S1 and S2; no rub Lungs: decreased at bases and coarse throughout Abdomen: soft, nontender, nondistended, positive bowel sounds Extremities: no cyanosis or clubbing; trace edema Skin: no rash Objective Data Vital Signs Vital Signs: Vital Signs Temp Pulse Resp BP Pulse Ox O2 Del Method O2 Flow Rate 10/04/22 12:00 98.1 F 95 14 111/57 L 98 10/04/22 08:14 88 16 10/04/22 08:06 98 Nasal Cannula 2 10/04/22 08:04 89 16 10/04/22 05:51 99.5 F 85 12 116/53 L 99 10/04/22 05:17 98.9 F 10/04/22 02:55 90 16 10/04/22 04:21 99.5 F 10/04/22 04:00 86 10/04/22 02:41 91 16 10/03/22 20:20 86 16 10/04/22 00:00 88 10/03/22 22:43 109 H 10/03/22 21:30 99.3 F 88 1
--- NOTE | 2022-10-04 14:35 | PM.IMPN ---
Progress Note: A&P Assessment and Plan (1) Hyponatremia: Code(s): E87.1 - Hypo-osmolality and hyponatremia Status: Acute (2) Subcapital fracture of femur: Code(s): S72.019A - Unspecified intracapsular fracture of unspecified femur, initial encounter for closed fracture Status: Acute (3) Chronic respiratory failure with hypoxia and hypercapnia: Code(s): J96.11 - Chronic respiratory failure with hypoxia; J96.12 - Chronic respiratory failure with hypercapnia Status: Chronic (4) COPD (chronic obstructive pulmonary disease): Code(s): J44.9 - Chronic obstructive pulmonary disease, unspecified Status: Acute (5) CHF (congestive heart failure), NYHA class I: Code(s): I50.9 - Heart failure, unspecified Status: Acute (6) Hypertension: Code(s): I10 - Essential (primary) hypertension Status: Chronic (7) Unresponsive: Code(s): R41.89 - Other symptoms and signs involving cognitive functions and awareness Status: Acute (8) Sepsis: Qualifiers: Sepsis acute organ dysfunction status: unspecified Sepsis type: sepsis due to unspecified organism Qualified Code(s): A41.9 - Sepsis, unspecified organism Code(s): A41.9 - Sepsis, unspecified organism Status: Acute Plan 10/04/2022:Patient was found laying down unresponsive call 911 and started CPR. Patient has underlying history of COPD and on home oxygen via nasal cannula also has congestive heart failure and hypertension. Patient was last seen well 6 days ago by daughter however did have today's newspaper alongside the patient where she was found unresponsive. Patient was obtunded on presentation. Workup revealed WBC count of 20,000 acute respiratory acidosis sodium of 123 and lactic acidosis of 6.6. Hypothermic received IV fluid resuscitation broad-spectrum antibiotics with vancomycin Levaquin and Zosyn. Hypertonic normal saline was also given for possible unresponsiveness secondary to hyponatremia. CT abdomen pelvis showed left hip fracture for which Orthopedic was consulted. She was admitted to the ICU in the setting on 09/26/2022. She was suspected to have sepsis and was placed on broad-spectrum antibiotics with altered mental status rule out meningitis encephalitis was planned and lumbar puncture was done. Neurology was also consulted brain MRI was performed initial CSF studies is clear does not show infection. Vancomycin ampicillin was discontinued continued on Rocephin and acyclovir. HSV PCR came back negative will stop acyclovir. For hyponatremia she was treated with 3% saline with subsequent improvement of her sodium level. Orthopedic on board and planned surgery on her left hip. Status post left hip arthroplasty done 10/02/2022. She also had mild episode of rhabdomyolysis. Chest x-ray with worsening changes of edema/bronchiolitis in the left lower lung overall background of more diffuse worsening mild interstitial edema 09/30/2022. DVT prophylaxis with Lovenox. Remains on ceftriaxone IV will plan to continue 7-10 days course for underlying pneumonia. Start date 09/27/2022. Patient on Lasix diuresis for mild pulmonary edema. will hold this given hypotension this a.m. also hold amlodipine lisinopril and Lasix. Will give normal saline fluid bolus. Monitor blood pressure. Hyponatremia has worsened down to 122 10/03/2022. Hypertension resolved with fluid boluses. Diuretic as well as blood pressure medication currently on hold. Sodium was improved to 126 Today will continue to monitor On salt tablets Subjective Date/time seen: 10/04/22 14:35 Interval history: Patient was found laying down unresponsive call 911 and started CPR. Patient has underlying history of COPD and on home oxygen via nasal cannula also has congestive heart failure and hypertension. Patient was last seen well 6 days ago by daughter however did have today's newspaper alongside the patient where she was found
[2022-10-04 16:59] LABS: Glucose Point of Care 150 mg/dl (65-105)
[2022-10-04] MEDS: FAMOTIDINE 20 MG TABLET PO (20:05)
[2022-10-04 20:44] LABS: Glucose Point of Care 114 mg/dl (65-105)
[2022-10-05] VITALS (18 sets, daily range): BP systolic 122–126; BP diastolic 61–67; PULSE 76–117; RESP 16–17; TEMP 36.7–36.9; O2SAT 97–100
[2022-10-05] MEDS: LEVALBUTEROL NEB 1.25 MG/3 ML INHALATION ×4 (02:06→20:25)
[2022-10-05] MEDS: IPRATROPIUM BR 0.02% INH SOLN 0.5 MG/2.5 ML VIAL INHALATION ×4 (02:07→20:25)
[2022-10-05] MEDS: CENTRAL LINE FLUSH 10 ML IV PUSH ×3 (06:36→20:27)
[2022-10-05 06:43] LABS: Basophils Percent Auto 0.5 % (0.2-1.2); Eosinophils Percent Auto 0.6 % (0-4.4); Hematocrit 28.1 % (37.0-47.0); Immature Granulocyte Absolute 0.05 K/mm3 (0.00-0.031); Immature Granulocyte Percent A 0.8 % (0-0.5); Lymphocytes Absolute Auto 0.59 K/mm3 (0.9-3.2); Lymphocytes Percent Auto 9.4 % (18.3-44.2); Mean Corpuscular Hemoglobin 32.6 pg (26-34); Mean Corpuscular Volume 101.8 fl (80-100); Mean Platelet Volume 9.6 fl (7.4-10.4); Monocytes Absolute Auto 0.6 K/mm3 (0.1-0.6); Monocytes Percent Auto 9.7 % (2.6-8.5); Platelet Count Result 191 k/mm3 (150-375); Red Blood Count 2.76 M/mm3 (4.2-5.4); Red Cell Distribution Width 13.7 % (11.5-14.5); White Blood Count 6.3 K/mm3 (4.5-10.0)
[2022-10-05 06:56] LABS: Alanine Aminotransferase 18 U/L (6-35); Albumin Level 2.5 g/dL (3.5-5.1); Alkaline Phosphatase 51 U/L (38-126); Aspartate Amino Transferase 28 U/L (14-36); Bilirubin,Total 0.5 mg/dL (0.2-1.3); Blood Urea Nitrogen 16 mg/dL (7-17); Calcium 7.7 mg/dL (8.4-10.2); Carbon Dioxide > 40 mmol/L (22-30); Chloride 91 mmol/L (98-107); Estimated CRCL calculation 55 ml/min; Estimated Glomerular Filt Rate > 60; Glucose 87 mg/dL (65-110); Magnesium 1.9 mg/dL (1.6-2.3); Potassium 3.3 mmol/L (3.4-5.0); Sodium 131 mmol/L (137-145)
[2022-10-05] MEDS: cefTRIAXone 2 GM/NS 100 ML 2 GM/100 ML BAG IVPB (08:03)
[2022-10-05] MEDS: DOCUSATE SODIUM LIQ 100 MG/10 ML UDC PO ×2 (08:03→20:26)
[2022-10-05] MEDS: THIAMINE HCL 200 MG/2 ML VIAL 100 MG IV PUSH (08:03)
[2022-10-05] MEDS: SODIUM CHLORIDE 1 GM TABLET PO ×2 (08:03→17:13)
[2022-10-05] MEDS: FOLIC ACID 1 MG TABLET PO (08:03)
[2022-10-05] MEDS: SENNA/DOCUSATE SODIUM TABLET 2 TAB PO ×2 (08:03→17:13)
[2022-10-05] MEDS: ENOXAPARIN 40 MG/0.4 ML SYRINGE SUB-Q (08:04)
[2022-10-05] MEDS: FAMOTIDINE 20 MG TABLET PO ×2 (08:04→20:26)
[2022-10-05] MEDS: polyethylene glycoL 3350 17 GM POWD.PACK PO (08:09)
[2022-10-05] MEDS: POTASSIUM CHLORIDE 20 MEQ ER TABLET 40 MEQ PO (08:20)
[2022-10-05 09:41] LABS: Glucose Point of Care 124 mg/dl (65-105)
--- NOTE | 2022-10-05 09:57 | PCNFU ---
Nutrition Follow-Up Complete: Severe Protein Calorie Malnutrition as related to inadequate protein-energy intake with increased protein-energy needs in setting of chronic disease or condition (COPD) as evidenced by severe subcutaneous fat loss (orital fat pads) and severe muscle wasting(temporalis) . Goal:Meet estimated nutritional needs. Pt current nutrition is Diabetic. Nutrition recommendation: Add nutrition ice cream cups, Ensure compact BID Last recorded weight is 44 kg -increased from 33kg on admission Bowel Motility: +BM 10/04 Labs Reviewed: Hgb:10.4, Alb:2.8, NA:131, K:3.3, BUN:21, Cr:0.6, Glu:106 Meds Noted: lovenox, lasix, novolog, thiamin Additional Notes: Pt diet advanced to Diabetic, family also bringing in food. Intake varies from 15-75%. Pt reports a good appetite and eating breakfast during assessment. Agreed to nutrition ice cream cups and Ensure compact to supplement intake. Will monitor weight, labs, skin, meds, oral intake every 7 days.
--- NOTE | 2022-10-05 10:42 | P.PNNP_ITS ---
Progress Note: A&P Assessment and Plan (1) Hyponatremia: Code(s): E87.1 - Hypo-osmolality and hyponatremia Status: Acute Assessment and Plan: * slow improvement * suspect drop in sodium on 10/03/22 secondary to multiple normal saline fluid boluses overnight * review of labs suggest acute on chronic * evaluation to date: * urine electrolytes prerenal * SPEP/UPEP and serum/urine osmo pending * TSH and cortisol okay * CT of head negative * CXR results noted (known COPD) * no culprit medications * multifactorial etiology - COPD, CHF + need for diuretics, recent pain issues/pain medications, and pneumonia * s/p 3% saline on admission * on salt tabs (holding lasix given hypotension) * resume lasix when able given issues with CHF and to help improve/maintain sodium * consider weaning of salt tabs if able * follow trend of repeat sodiums (2) Closed left hip fracture: Qualifiers: Encounter type: subsequent encounter Fracture healing: with routine healing Qualified Code(s): S72.002D - Fracture of unspecified part of neck of left femur, subsequent encounter for closed fracture with routine healing Code(s): S72.002A - Fracture of unspecified part of neck of left femur, initial encounter for closed fracture Status: Acute Assessment and Plan: * as noted by admission imaging * Orthopedics following * s/p left hip hemiarthroplasty with bipolar prosthesis (10/02/22) * pain control * PT/OT as tolerated (3) Chronic respiratory failure with hypoxia and hypercapnia: Code(s): J96.11 - Chronic respiratory failure with hypoxia; J96.12 - Chronic respiratory failure with hypercapnia Status: Chronic Assessment and Plan: * due to known COPD and CHF * chronically on 2L by [place] at baseline * complicated by underlying pneumonia * on antibiotics * PRN diamox given CO2 retention (4) Hypertension: Code(s): I10 - Essential (primary) hypertension Status: Chronic Assessment and Plan: * better controlled at this time * continue current medications * follow trend of hemodynamics Will continue to follow. Subjective Date/time seen: 10/05/22 10:42 Interval history: Follow-up for acute hyponatremia. Sodium continues to improve with current therapy/interventions (fluid restrictions and salt tabs; off lasix due to previous hypotension); no apparent distress noted at the time of my visit; pain control satisfactory. Exam Narrative: General: frail cachectic female in NAD Heart: normal S1 and S2; no rub Lungs: decreased at bases and coarse throughout Abdomen: soft, nontender, nondistended, positive bowel sounds Extremities: no cyanosis or clubbing; trace edema Skin: no nodules Objective Data Vital Signs Vital Signs: Vital Signs Temp Pulse Resp BP Pulse Ox O2 Del Method O2 Flow Rate 10/05/22 08:00 82 10/05/22 08:35 88 16 10/05/22 08:27 97 Nasal Cannula 2 10/05/22 08:20 92 16 10/05/22 06:02 98.1 F 93 16 126/61 97 10/05/22 04:00 89 10/05/22 02:19 76 16 10/05/22 02:07 78 16 10/05/22 00:00 91 10/04/22 20:00 82 10/04/22 20:48 99.5 F 84 18 123/57 L 93 10/04/22 20:07 84 16 10/04/22 19:53 98 Nasal Cannu
--- NOTE | 2022-10-05 10:42 | PM.PNNEP ---
Progress Note: A&P Assessment and Plan (1) Hyponatremia: Code(s): E87.1 - Hypo-osmolality and hyponatremia Status: Acute Assessment and Plan: slow improvement suspect drop in sodium on 10/03/22 secondary to multiple normal saline fluid boluses overnight review of labs suggest acute on chronic evaluation to date: urine electrolytes prerenal SPEP/UPEP and serum/urine osmo pending TSH and cortisol okay CT of head negative CXR results noted (known COPD) no culprit medications multifactorial etiology - COPD, CHF + need for diuretics, recent pain issues/pain medications, and pneumonia s/p 3% saline on admission on salt tabs (holding lasix given hypotension) resume lasix when able given issues with CHF and to help improve/maintain sodium consider weaning of salt tabs if able follow trend of repeat sodiums (2) Closed left hip fracture: Qualifiers: Encounter type: subsequent encounter Fracture healing: with routine healing Qualified Code(s): S72.002D - Fracture of unspecified part of neck of left femur, subsequent encounter for closed fracture with routine healing Code(s): S72.002A - Fracture of unspecified part of neck of left femur, initial encounter for closed fracture Status: Acute Assessment and Plan: as noted by admission imaging Orthopedics following s/p left hip hemiarthroplasty with bipolar prosthesis (10/02/22) pain control PT/OT as tolerated (3) Chronic respiratory failure with hypoxia and hypercapnia: Code(s): J96.11 - Chronic respiratory failure with hypoxia; J96.12 - Chronic respiratory failure with hypercapnia Status: Chronic Assessment and Plan: due to known COPD and CHF chronically on 2L by [place] at baseline complicated by underlying pneumonia on antibiotics PRN diamox given CO2 retention (4) Hypertension: Code(s): I10 - Essential (primary) hypertension Status: Chronic Assessment and Plan: better controlled at this time continue current medications follow trend of hemodynamics Will continue to follow. Subjective Date/time seen: 10/05/22 10:42 Interval history: Follow-up for acute hyponatremia. Sodium continues to improve with current therapy/interventions (fluid restrictions and salt tabs; off lasix due to previous hypotension); no apparent distress noted at the time of my visit; pain control satisfactory. Exam Narrative: General: frail cachectic female in NAD Heart: normal S1 and S2; no rub Lungs: decreased at bases and coarse throughout Abdomen: soft, nontender, nondistended, positive bowel sounds Extremities: no cyanosis or clubbing; trace edema Skin: no nodules Objective Data Vital Signs Vital Signs: Vital Signs Temp Pulse Resp BP Pulse Ox O2 Del Method O2 Flow Rate 10/05/22 08:00 82 10/05/22 08:35 88 16 10/05/22 08:27 97 Nasal Cannula 2 10/05/22 08:20 92 16 10/05/22 06:02 98.1 F 93 16 126/61 97 10/05/22 04:00 89 10/05/22 02:19 76 16 10/05/22 02:07 78 16 10/05/22 00:00 91 10/04/22 20:00 82 10/04/22 20:48 99.5 F 84 18 123/57 L 93 10/04/22 20:07 84 16 10/04/22 19:53 98 Nasal Cannula 2 10/04/22 19:52 80 16 10/04/22 19:52 98 Nasal Cannula 1 10/04/22 14:22 91 16 10/04/22 14:00 98.1 F 95 14 111/57 L 98 10/04/22 14:09 83 16 Intake/Output Intake/Output: Intake & Output 10/02/22 10/03/22 10/04/22 10/05/22 23:59 23:59 23:59 23:59 Intake Total 1896.4 2140 1440 240 Output Total 1180 1500 500 375 Balance 716.4 640 940 -135 Meds/Results Medications: Active Medications Generic Name Dose Route Start Last Admin Trade Name Klaudia PRN Reason Stop Dose Admin Acetaminophen 650 mg 10/02/22 11:25 10/04/22 04:21 Acetaminophen 325 Mg Tablet PO 650 mg Q6H PRN Administration Mild Pain (1-
[2022-10-05 11:23] LABS: Glucose Point of Care 106 mg/dl (65-105)
[2022-10-05] MEDS: ACETAMINOPHEN 325 MG TABLET 650 MG PO (13:14)
--- NOTE | 2022-10-05 14:07 | PM.IMPN ---
Progress Note: A&P Assessment and Plan (1) Hyponatremia: Code(s): E87.1 - Hypo-osmolality and hyponatremia Status: Acute (2) Subcapital fracture of femur: Code(s): S72.019A - Unspecified intracapsular fracture of unspecified femur, initial encounter for closed fracture Status: Acute (3) Chronic respiratory failure with hypoxia and hypercapnia: Code(s): J96.11 - Chronic respiratory failure with hypoxia; J96.12 - Chronic respiratory failure with hypercapnia Status: Chronic (4) COPD (chronic obstructive pulmonary disease): Code(s): J44.9 - Chronic obstructive pulmonary disease, unspecified Status: Acute (5) CHF (congestive heart failure), NYHA class I: Code(s): I50.9 - Heart failure, unspecified Status: Acute (6) Hypertension: Code(s): I10 - Essential (primary) hypertension Status: Chronic (7) Unresponsive: Code(s): R41.89 - Other symptoms and signs involving cognitive functions and awareness Status: Acute (8) Sepsis: Qualifiers: Sepsis acute organ dysfunction status: unspecified Sepsis type: sepsis due to unspecified organism Qualified Code(s): A41.9 - Sepsis, unspecified organism Code(s): A41.9 - Sepsis, unspecified organism Status: Acute Plan :Patient was found laying down unresponsive call 911 and started CPR. Patient has underlying history of COPD and on home oxygen via nasal cannula also has congestive heart failure and hypertension. Patient was last seen well 6 days ago by daughter however did have today's newspaper alongside the patient where she was found unresponsive. Patient was obtunded on presentation. Workup revealed WBC count of 20,000 acute respiratory acidosis sodium of 123 and lactic acidosis of 6.6. Hypothermic received IV fluid resuscitation broad-spectrum antibiotics with vancomycin Levaquin and Zosyn. Hypertonic normal saline was also given for possible unresponsiveness secondary to hyponatremia. CT abdomen pelvis showed left hip fracture for which Orthopedic was consulted. She was admitted to the ICU in the setting on 09/26/2022. She was suspected to have sepsis and was placed on broad-spectrum antibiotics with altered mental status rule out meningitis encephalitis was planned and lumbar puncture was done. Neurology was also consulted brain MRI was performed initial CSF studies is clear does not show infection. Vancomycin ampicillin was discontinued continued on Rocephin and acyclovir. HSV PCR came back negative will stop acyclovir. For hyponatremia she was treated with 3% saline with subsequent improvement of her sodium level. Orthopedic on board and planned surgery on her left hip. Status post left hip arthroplasty done 10/02/2022. She also had mild episode of rhabdomyolysis. Chest x-ray with worsening changes of edema/bronchiolitis in the left lower lung overall background of more diffuse worsening mild interstitial edema 09/30/2022. DVT prophylaxis with Lovenox. Remains on ceftriaxone IV will plan to continue 7-10 days course for underlying pneumonia. Start date 09/27/2022. will discontinue ceftriaxone today. Patient on Lasix diuresis for mild pulmonary edema. Postoperative hypertension. Blood pressure medicines on hold . Hyponatremia has worsened down to 122 10/03/2022. Hypotension resolved with fluid boluses. Diuretic as well as blood pressure medication currently on hold. Sodium was improved to 126 Today will continue to monitor. On salt tablets. Replace potassium. Sodium level has improved to 131 today. Recheck in a.m. continue to hold all BP meds medicine today. Will resume depending on the blood pressure trend in a.m.. she will be transferred to [facility] when medically stable. Anticipate 1-2 days depending on the labs and clinical status Subjective Date/time seen: 10/05/22 14:07 Interval history: Patient was found laying down unresponsive call 911 and start
[2022-10-05 16:29] LABS: Red Blood Cell Folate 587 ng/mL RBC (>280)
[2022-10-05 16:43] LABS: Glucose Point of Care 96 mg/dl (65-105)
[2022-10-05] MEDS: HYDROcodone/acetaminophen (*CRX) 7.5-325 MG TABLET 1 TAB PO (20:26)
[2022-10-05 21:03] LABS: Glucose Point of Care 137 mg/dl (65-105)
[2022-10-06] VITALS (13 sets, daily range): BP systolic 141–148; BP diastolic 72–78; PULSE 87–110; RESP 16–22; TEMP 37.6; O2SAT 98–100
[2022-10-06] MEDS: IPRATROPIUM BR 0.02% INH SOLN 0.5 MG/2.5 ML VIAL INHALATION ×3 (02:37→13:56)
[2022-10-06] MEDS: LEVALBUTEROL NEB 1.25 MG/3 ML INHALATION ×3 (02:37→13:56)
[2022-10-06 07:05] LABS: Basophils Percent Auto 0.7 % (0.2-1.2); Eosinophils Absolute Auto 0.1 K/mm3 (0-0.3); Hemoglobin 8.9 g/dL (12.0-15.0); Immature Granulocyte Absolute 0.03 K/mm3 (0.00-0.031); Immature Granulocyte Percent A 0.5 % (0-0.5); Lymphocytes Absolute Auto 0.71 K/mm3 (0.9-3.2); Lymphocytes Percent Auto 12.4 % (18.3-44.2); Mean Corpuscular HGB Conc 31.8 g/dl (32-36); Mean Corpuscular Hemoglobin 33.2 pg (26-34); Mean Corpuscular Volume 104.5 fl (80-100); Monocytes Absolute Auto 0.5 K/mm3 (0.1-0.6); Monocytes Percent Auto 9.3 % (2.6-8.5); Neutrophils Absolute Auto 4.4 K/mm3 (1.3-6.7); Neutrophils Percent Auto 76.1 % (45.5-73.1); Platelet Count Result 213 k/mm3 (150-375); Red Blood Count 2.68 M/mm3 (4.2-5.4); Red Cell Distribution Width 13.9 % (11.5-14.5); White Blood Count 5.7 K/mm3 (4.5-10.0)
[2022-10-06 07:33] LABS: Alanine Aminotransferase 19 U/L (6-35); Albumin Level 2.6 g/dL (3.5-5.1); Alkaline Phosphatase 47 U/L (38-126); Aspartate Amino Transferase 28 U/L (14-36); Bilirubin,Total 0.4 mg/dL (0.2-1.3); Blood Urea Nitrogen 15 mg/dL (7-17); Calcium 7.6 mg/dL (8.4-10.2); Carbon Dioxide > 40 mmol/L (22-30); Chloride 95 mmol/L (98-107); Estimated CRCL calculation 67 ml/min; Estimated Glomerular Filt Rate > 60; Glucose 100 mg/dL (65-110); Potassium 3.7 mmol/L (3.4-5.0); Sodium 132 mmol/L (137-145)
[2022-10-06] MEDS: THIAMINE HCL 200 MG/2 ML VIAL 100 MG IV PUSH (09:33)
[2022-10-06] MEDS: ENOXAPARIN 40 MG/0.4 ML SYRINGE SUB-Q (09:35)
[2022-10-06] MEDS: SODIUM CHLORIDE 1 GM TABLET PO (09:36)
[2022-10-06] MEDS: FOLIC ACID 1 MG TABLET PO (09:37)
[2022-10-06] MEDS: FAMOTIDINE 20 MG TABLET PO (09:37)
--- NOTE | 2022-10-06 10:00 | P.PNNP_ITS ---
Progress Note: A&P Assessment and Plan (1) Hyponatremia: Code(s): E87.1 - Hypo-osmolality and hyponatremia Status: Acute Assessment and Plan: * slow improvement * suspect drop in sodium on 10/03/22 secondary to multiple normal saline fluid boluses overnight * review of labs suggest acute on chronic * evaluation to date: * urine electrolytes prerenal * SPEP without M-spike; UPEP pending * TSH and cortisol okay * CT of head negative * CXR results noted (known COPD) * no culprit medications * multifactorial etiology - COPD, CHF + need for diuretics, recent pain issues/pain medications, and pneumonia * s/p 3% saline on admission * on salt tabs (holding lasix given hypotension) * resume lasix when able given issues with CHF and to help improve/maintain sodium * consider weaning of salt tabs if able * follow trend of repeat sodiums (2) Closed left hip fracture: Qualifiers: Encounter type: subsequent encounter Fracture healing: with routine healing Qualified Code(s): S72.002D - Fracture of unspecified part of neck of left femur, subsequent encounter for closed fracture with routine healing Code(s): S72.002A - Fracture of unspecified part of neck of left femur, initial encounter for closed fracture Status: Acute Assessment and Plan: * as noted by admission imaging * Orthopedics following * s/p left hip hemiarthroplasty with bipolar prosthesis (10/02/22) * pain control * PT/OT as tolerated (3) Chronic respiratory failure with hypoxia and hypercapnia: Code(s): J96.11 - Chronic respiratory failure with hypoxia; J96.12 - Chronic respiratory failure with hypercapnia Status: Chronic Assessment and Plan: * due to known COPD and CHF * chronically on 2L by [place] at baseline * complicated by underlying pneumonia * on antibiotics * PRN diamox given CO2 retention (4) Hypertension: Code(s): I10 - Essential (primary) hypertension Status: Chronic Assessment and Plan: * better controlled at this time * continue current medications * follow trend of hemodynamics Will continue to follow. Subjective Date/time seen: 10/06/22 10:00 Interval history: Follow-up for acute hyponatremia. Sodium remains relatively stable if not better by trend of labs; pain control appears satisfactory; no acute issues overnight or earlier this morning; no apparent distress noted. Exam Narrative: General: frail cachectic female in NAD Heart: normal S1 and S2; no rub Lungs: decreased at bases and coarse throughout Abdomen: soft, nontender, nondistended, positive bowel sounds Extremities: no cyanosis or clubbing; trace edema Skin: warm and dry Objective Data Vital Signs Vital Signs: Vital Signs Temp Pulse Resp BP Pulse Ox O2 Del Method O2 Flow Rate 10/06/22 08:00 100 Nasal Cannula 1 10/06/22 08:00 95 10/06/22 08:55 110 H 20 10/06/22 08:39 106 H 22 H 10/06/22 04:00 87 10/06/22 00:00 109 H 10/05/22 20:00 117 H 10/06/22 05:16 99.7 F H 103 H 16 148/78 H 100 10/06/22 02:47 92 18 10/06/22 02:40 88 18 10/05/22 20:00 98 Nasal Cannula 1 10/05/22 21:17 98.5 F 96 16 125/64 98 10/05/22 20:36 86 17
--- NOTE | 2022-10-06 10:00 | PM.PNNEP ---
Progress Note: A&P Assessment and Plan (1) Hyponatremia: Code(s): E87.1 - Hypo-osmolality and hyponatremia Status: Acute Assessment and Plan: slow improvement suspect drop in sodium on 10/03/22 secondary to multiple normal saline fluid boluses overnight review of labs suggest acute on chronic evaluation to date: urine electrolytes prerenal SPEP without M-spike; UPEP pending TSH and cortisol okay CT of head negative CXR results noted (known COPD) no culprit medications multifactorial etiology - COPD, CHF + need for diuretics, recent pain issues/pain medications, and pneumonia s/p 3% saline on admission on salt tabs (holding lasix given hypotension) resume lasix when able given issues with CHF and to help improve/maintain sodium consider weaning of salt tabs if able follow trend of repeat sodiums (2) Closed left hip fracture: Qualifiers: Encounter type: subsequent encounter Fracture healing: with routine healing Qualified Code(s): S72.002D - Fracture of unspecified part of neck of left femur, subsequent encounter for closed fracture with routine healing Code(s): S72.002A - Fracture of unspecified part of neck of left femur, initial encounter for closed fracture Status: Acute Assessment and Plan: as noted by admission imaging Orthopedics following s/p left hip hemiarthroplasty with bipolar prosthesis (10/02/22) pain control PT/OT as tolerated (3) Chronic respiratory failure with hypoxia and hypercapnia: Code(s): J96.11 - Chronic respiratory failure with hypoxia; J96.12 - Chronic respiratory failure with hypercapnia Status: Chronic Assessment and Plan: due to known COPD and CHF chronically on 2L by [place] at baseline complicated by underlying pneumonia on antibiotics PRN diamox given CO2 retention (4) Hypertension: Code(s): I10 - Essential (primary) hypertension Status: Chronic Assessment and Plan: better controlled at this time continue current medications follow trend of hemodynamics Will continue to follow. Subjective Date/time seen: 10/06/22 10:00 Interval history: Follow-up for acute hyponatremia. Sodium remains relatively stable if not better by trend of labs; pain control appears satisfactory; no acute issues overnight or earlier this morning; no apparent distress noted. Exam Narrative: General: frail cachectic female in NAD Heart: normal S1 and S2; no rub Lungs: decreased at bases and coarse throughout Abdomen: soft, nontender, nondistended, positive bowel sounds Extremities: no cyanosis or clubbing; trace edema Skin: warm and dry Objective Data Vital Signs Vital Signs: Vital Signs Temp Pulse Resp BP Pulse Ox O2 Del Method O2 Flow Rate 10/06/22 08:00 100 Nasal Cannula 1 10/06/22 08:00 95 10/06/22 08:55 110 H 20 10/06/22 08:39 106 H 22 H 10/06/22 04:00 87 10/06/22 00:00 109 H 10/05/22 20:00 117 H 10/06/22 05:16 99.7 F H 103 H 16 148/78 H 100 10/06/22 02:47 92 18 10/06/22 02:40 88 18 10/05/22 20:00 98 Nasal Cannula 1 10/05/22 21:17 98.5 F 96 16 125/64 98 10/05/22 20:36 86 17 10/05/22 20:32 98 Nasal Cannula 1 10/05/22 20:28 86 17 10/05/22 16:00 99 10/05/22 14:00 98.4 F 104 H 16 122/67 100 10/05/22 14:18 90 16 10/05/22 14:00 92 16 Intake/Output Intake/Output: Intake & Output 10/03/22 10/04/22 10/05/22 10/06/22 23:59 23:59 23:59 23:59 Intake Total 2140 1440 970 390 Output Total 1500 500 575 200 Balance 640 940 395 190 Meds/Results Medications: Active Medications Generic Name Dose Route Start Last Admin Trade Name Klaudia PRN Reason Stop Dose Admin Acetaminophen 650 mg 10/02/22 11:25 10/05/22 13:14 Acetaminophen 325 Mg Tablet PO 650 mg Q6H PRN Administration Mild Pain (1
[2022-10-06] MEDS: CENTRAL LINE FLUSH 10 ML IV PUSH (13:50)
--- NOTE | 2022-10-06 14:28 | PM.DS ---
DS: Admitting Diagnosis Discharge Date 10/06/2022 Admitting Diagnosis Altered mental status DS: Discharge Diagnosis Discharge Diagnosis (1) Hyponatremia: Code(s): E87.1 - Hypo-osmolality and hyponatremia Status: Acute (2) Subcapital fracture of femur: Code(s): S72.019A - Unspecified intracapsular fracture of unspecified femur, initial encounter for closed fracture Status: Acute (3) Chronic respiratory failure with hypoxia and hypercapnia: Code(s): J96.11 - Chronic respiratory failure with hypoxia; J96.12 - Chronic respiratory failure with hypercapnia Status: Chronic (4) COPD (chronic obstructive pulmonary disease): Code(s): J44.9 - Chronic obstructive pulmonary disease, unspecified Status: Acute (5) CHF (congestive heart failure), NYHA class I: Code(s): I50.9 - Heart failure, unspecified Status: Acute (6) Hypertension: Code(s): I10 - Essential (primary) hypertension Status: Chronic (7) Unresponsive: Code(s): R41.89 - Other symptoms and signs involving cognitive functions and awareness Status: Acute (8) Sepsis: Qualifiers: Sepsis acute organ dysfunction status: unspecified Sepsis type: sepsis due to unspecified organism Qualified Code(s): A41.9 - Sepsis, unspecified organism Code(s): A41.9 - Sepsis, unspecified organism Status: Acute DS: Summary Hospital Course Hospital Course: Patient was found laying down unresponsive call 911 and started CPR. Patient has underlying history of COPD and on home oxygen via nasal cannula also has congestive heart failure and hypertension. Patient was last seen well 6 days ago by daughter however did have today's newspaper alongside the patient where she was found unresponsive. Patient was obtunded on presentation. Workup revealed WBC count of 20,000 acute respiratory acidosis sodium of 123 and lactic acidosis of 6.6. Hypothermic received IV fluid resuscitation broad-spectrum antibiotics with vancomycin Levaquin and Zosyn. Hypertonic saline was also given for possible unresponsiveness secondary to hyponatremia. CT abdomen pelvis showed left hip fracture for which Orthopedic was consulted. She was admitted to the ICU in the setting on 09/26/2022. She was suspected to have sepsis and was placed on broad-spectrum antibiotics with altered mental status rule out meningitis encephalitis was planned and lumbar puncture was done. Neurology was also consulted brain MRI was performed initial CSF studies is clear does not show infection. Vancomycin ampicillin was discontinued subsequently but continued on Rocephin and acyclovir. HSV PCR came back negative after which acyclovir was stopped. For hyponatremia she was treated with 3% saline with subsequent improvement of her sodium level. Orthopedic on board and planned surgery on her left hip. Status post left hip arthroplasty done 10/02/2022. She also had mild episode of rhabdomyolysis. Chest x-ray with worsening changes of edema/bronchiolitis in the left lower lung overall background of more diffuse worsening mild interstitial edema 09/30/2022. DVT prophylaxis with Lovenox. Completed course of ceftriaxone. Patient on Lasix diuresis for mild pulmonary edema. Postoperative hypotension. Blood pressure medicines were held. Hyponatremia has worsened down to 122 10/03/2022 postoperatively. Hypotension resolved with fluid boluses. Diuretic as well as blood pressure medication currently on hold. Sodium was improved to 126 and continue to improve. She remain on salt tablet. Will resume Lasix at discharge. She will be transferred to [facility]. Lovenox will be used for DVT prophylaxis Time Spent with Patient Time attestation: Total time spent providing and/or coordinating discharge services: 45 minutes Exam Narrative: Malnourished Patient is comfortable, NAD HEENT: eyes are clear and none icteric LUNGS: Normal respiratory effort
== END 2022-10-06 16:20 | DRG 853 ==
LOC: ANHED 20:43 → ANHICU 20:43 → ANHIMU 09-28 18:14 → ANH3MEDSUR 09-29 18:53
PROVIDERS: Anesthesiology; Internal Medicine; Internal Medicine Nephrology; Nurse Practitioner; Orthopaedic Surgery; Student in an Organized Health Care Education/Training Program; Admitting Provider Family Medicine; Emergency Provider Emergency Medicine; PCP Internal Medicine; Visit Provider Internal Medicine
PROC: 0SRS01A Replacement of Left Hip Joint, Femoral Surface with Metal Synthetic Substitute, Uncemented, Open Approach (ICD-10-PCS; CPT 27125; principal; 2022-10-02 07:30)
DX: A41.9 Sepsis, unspecified organism (principal); J18.9 Pneumonia, unspecified organism; S72.012A Unspecified intracapsular fracture of left femur, initial encounter for closed fracture; E87.1 Hypo-osmolality and hyponatremia; J96.11 Chronic respiratory failure with hypoxia; J96.12 Chronic respiratory failure with hypercapnia; M62.82 Rhabdomyolysis; R64 Cachexia; Z68.1 Body mass index [BMI] 19.9 or less, adult; E44.0 Moderate protein-calorie malnutrition; I67.4 Hypertensive encephalopathy; G93.49 Other encephalopathy; J43.9 Emphysema, unspecified; I11.0 Hypertensive heart disease with heart failure; F10.10 Alcohol abuse, uncomplicated; G31.2 Degeneration of nervous system due to alcohol; R41.89 Other symptoms and signs involving cognitive functions and awareness; R68.0 Hypothermia, not associated with low environmental temperature; I50.9 Heart failure, unspecified; I95.81 Postprocedural hypotension; E86.0 Dehydration; L57.0 Actinic keratosis; E87.6 Hypokalemia; K59.00 Constipation, unspecified; Z20.822 Contact with and (suspected) exposure to COVID-19; Z87.891 Personal history of nicotine dependence; Z99.81 Dependence on supplemental oxygen
CPT/HCPCS: 36415; 36569; 36600; 62328; 70450; 70551; 71045; 72125; 73502; 73521; 73700; 74177; 80048; 80053; 81001; 82140; 82533; 82550; 82570; 82607; 82747; 82805; 82945; 82948; 83036; 83605; 83735; 83930; 83935; 84100; 84133; 84145; 84155; 84156; 84157; 84165; 84295; 84300; 84425; 84443; 84484; 84540; 85025; 85027; 85055; 85610; 85730; 86140; 86403; 86592; 86617; 87040; 87070; 87081; 87529; 87637; 87651; 87798; 89051; 92610; 92611; 93005; 93306; 94640; 96361; 96365; 96375; 97110; 97116; 97161; 97165; 97530; 97535; 99285; A9270; C1713; C1751; C1776; J0133; J0171; J0290; J0360; J0690; J0696; J1650; J1885; J1940; J1956; J2060; J2270; J2543; J2704; J2795; J3010; J3370; J3411; J3475; J3480; J7030; J7040; J7050; J7120; J7131; Q9967